=== PATIENT | female | born 1950 | race Caucasian/White ===

== ENCOUNTER → 2017-01-29 | Outpatient (CLI) | payer MEDICARE | LOC: M LAB 09:37 | PROVIDERS: ATTEND Physician Assistant Medical | DX: M79.675 Pain in left toe(s) (principal) ==

== ENCOUNTER 2017-07-18 10:35 | Inpatient (IN) | payer MEDICAID, MEDICARE ==
[2017-07-18] VITALS (7 sets, daily range): BP systolic 103–122; BP diastolic 64–78
[~2017-07-18] VITALS: Ht 170.2 cm; Wt 70.5 kg
[2017-07-18] MEDS: LOSARTAN 50 MG TAB PO SCH (09:00)
[2017-07-18] MEDS ORDERED: HYDR-3716 PO (10:44)
[2017-07-18] MEDS ORDERED: LOSA100T36 PO (10:44)
[2017-07-18] MEDS ORDERED: NAPR500T PO (10:44)
[2017-07-18] MEDS ORDERED: NS 1,000 ML IV SCH (11:09)
[2017-07-18] MEDS ORDERED: ONDANSETRON 4MG/2ML VIAL (J2405) IV ONE (11:15)
[2017-07-18 11:19] LABS: BASO % 0.4 % (0.0-1.0); EOS # 0.1 10^3/uL (0.0-0.50); EOS % 1.4 % (0.0-3.0); IMMATURE GRANULOCYTE % 0.8 % (0-0); LYMPH # 1.1 10^3/uL (1.5-4.5); LYMPH % 11.2 % (24.0-44.0); MEAN CORPUSCULAR HEMOGLOBIN 32.1 pg (27.0-33.0); MEAN CORPUSCULAR HGB CONC 33.7 g/dl (32.0-36.5); MEAN CORPUSCULAR VOLUME 95.1 fl (80.0-96.0); MONO # 0.8 10^3/uL (0.0-0.8); MONO % 8.2 % (0.0-5.0); NEUTROPHILS # 7.4 10^3/uL (1.8-7.7); PLATELET COUNT, AUTOMATED 343 10^3/uL (150-450); RED CELL DISTRIBUTION WIDTH 12.7 % (11.5-14.5); WHITE BLOOD COUNT 9.5 10^3/uL (4.0-10.0)
[2017-07-18] MEDS: MORPHINE 2 MG/ML 1ML SYRINGE IV PRN ×4 (11:23→13:47)
[2017-07-18 11:28] LABS: INR 0.96
[2017-07-18 11:35] LABS: ALBUMIN 3.9 GM/DL (3.2-5.2); ALKALINE PHOSPHATASE 80 U/L (45-117); ALT/SGPT 31 U/L (12-78); ANION GAP 8 MEQ/L (8-16); AST/SGOT 26 U/L (7-37); BILIRUBIN,DIRECT < 0.1 MG/DL (0.0-0.2); BILIRUBIN,TOTAL 0.4 MG/DL (0.2-1.0); BLOOD UREA NITROGEN 23 MG/DL (7-18); CARBON DIOXIDE LEVEL 26 MEQ/L (21-32); CHLORIDE LEVEL 106 MEQ/L (98-107); CREATININE FOR GFR 0.76 MG/DL (0.55-1.02); FREE T4 0.84 NG/DL (0.76-1.46); GLOMERULAR FILTRATION RATE > 60.0 (>45); GLUCOSE, FASTING 85 MG/DL (80-110); POTASSIUM SERUM 3.5 MEQ/L (3.5-5.1); SODIUM LEVEL 140 MEQ/L (136-145); TOTAL PROTEIN 7.8 GM/DL (6.4-8.2)
--- NOTE | 2017-07-18 12:19 | REP ---
AP pelvis single view: There is no pelvic fracture. There is a fracture of the left femoral neck. No dislocation. There is degenerative disc disease in the inferior lumbar spine. The sacroiliac articulations and right hip are. Signed by Brandyn Isaac MD 07/18/2017 12:10 P
--- NOTE | 2017-07-18 12:19 | REP ---
Left hip two views: There is a fracture of the femoral neck with cephalic displacement of the distal fracture fragment. There is no dislocation. Mineralization joint space are normal. Signed by Brandyn Isaac MD 07/18/2017 12:11 P
--- NOTE | 2017-07-18 12:20 | REP ---
Left femur two views: There is no fracture or dislocation. No calcifications or foreign bodies. Mineralization appears normal. Impression: No fracture or dislocation. Signed by Brandyn Isaac MD 07/18/2017 12:12 P
--- NOTE | 2017-07-18 12:23 | REP ---
Portable chest, AP view, the patient supine: Comparison is 05/30/2014. The lung salcedo are clear and unchanged. Cardiac size is normal. The sharon, mediastinum, and bony thorax are unremarkable. The small nodular densities identified previously are not visible on the current study, likely because of positioning and technique. Impression: Essentially negative AP supine chest. Signed by Brandyn Isaac MD 07/18/2017 12:14 P
--- NOTE | 2017-07-18 12:26 | REP ---
CT of the brain without IV contrast: There is no subdural or epidural hematoma. There is no hemorrhage, edema, mass effect or midline shift. The cortical stripe is unremarkable. The visualized paranasal sinuses and mastoid air cells are clear except for a small air-fluid level posteriorly in the right sphenoid sinus. Impression: Essentially negative CT study of the brain. A small air fluid levels posteriorly in the right sphenoid sinus compatible with sinusitis. Signed by Brandyn Isaac MD 07/18/2017 12:17 P
[2017-07-18] MEDS: NS 1,000 ML IV SCH (12:34)
[2017-07-18] MEDS ORDERED: ACETAMINOPHEN TAB 650MG DOSE (2X325MG) PO PRN (12:45)
[2017-07-18] MEDS ORDERED: PERCOCET 5MG/325MG TAB PO PRN ×2 (12:45→17:45)
[2017-07-18] MEDS ORDERED: BISACODYL 5 MG TAB PO PRN (12:45)
[2017-07-18] MEDS ORDERED: OXAZEPAM 10 MG CAP PO PRN (14:00)
[2017-07-18] MEDS ORDERED: VITMTA PO (14:04)
[2017-07-18] MEDS ORDERED: ESZO1TAB PO (14:04)
[2017-07-18] MEDS ORDERED: FOLI1TAB4 PO (14:04)
[2017-07-18] MEDS ORDERED: EXCE38TA PO (14:04)
[2017-07-18] MEDS ORDERED: ceFAZolin 2 GM/D5W 50 ML IV BAG (J0690 PER 500MG) As Ordered ONE (14:18)
[2017-07-18] MEDS ORDERED: EPINEPHrine INJ 1 MG/ML 1ML AMP As Ordered ONE (14:18)
[2017-07-18] MEDS ORDERED: MIDAZOLAM INJ 2 MG/2 ML VIAL (J2250) As Ordered ONE (14:19)
[2017-07-18] MEDS ORDERED: ceFAZolin 1GM INJ (J0690 PER 500MG) As Ordered ONE (14:19)
[2017-07-18] MEDS ORDERED: KETAMINE HCL 200 MG/20 ML VIAL As Ordered ONE (14:19)
[2017-07-18] MEDS ORDERED: fentaNYL 100 MCG/2 ML INJECTION (J3010) As Ordered ONE (14:19)
--- NOTE | 2017-07-18 15:41 | HPE ---
DATE OF ADMISSION: 07/18/2017 PRIMARY CARE PROVIDER: Valeri Brown INPATIENT HOSPITALIST ATTENDING: Dr. Emanuel Payne CHIEF COMPLAINT: Fall, left hip fracture. 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 The patient got out of bed this morning, was moving a box of [employer] when she slipped on the floor and she landed on her left side. The patient denies any head trauma , loss of consciousness, has been in her usual state of health, otherwise denies any fevers, chills, nausea, vomiting, abdominal pain, diarrhea, bright red blood per rectum, melena, cough, shortness of breath, palpitations, lightheadedness or dizziness, dysuria, urgency, frequency, upper or lower extremity weakness, changes in appetite or weight, chills, rhinorrhea. Hospitalist service was called for preoperative medical clearance and management of chronic issues, as well as left hip fracture for surgical intervention by orthopedic surgery. PAST MEDICAL HISTORY: Large cell lymphoma on the left. Hypertension. Alcohol abuse. PAST SURGICAL HISTORY: Endoscopy. Port placement. ALLERGIES: No known drug allergies. HOME MEDICATIONS: - losartan 100 mg daily - hydrocodone/acetaminophen 7.5-325 one tablet - Naprosyn 500 mg twice a day as needed for fever or pain REVIEW OF SYSTEMS: Per history of the present illness. FAMILY HISTORY: Father , age 52, deep vein thrombosis (DVT), diabetes. Mother in her 80s, alcohol abuse. PHYSICAL EXAMINATION: Temperature 97.4, pulse 90, respiratory rate 16, blood pressure 122/71, 99% on room air. General: Awake, alert, oriented times three, answering questions appropriately. No scleral icterus/jaundice. Pupils round and reactive to light and accommodation. Extraocular muscles are intact. Normocephalic, atraumatic. Moist mucous membranes. No jugular venous distention, thyromegaly or cervical lymphadenopathy. Lungs are clear to auscultation. No wheezing, rales, or rhonchi. Heart: S1, S2, sinus rhythm. Abdomen is soft, nontender, nondistended. Positive bowel sounds. No hepatosplenomegaly. No rebound, no guarding. Extremities: No cyanosis, clubbing or pitting edema. Left hip: Status post traumatic injury, limited range of motion. IMAGING STUDIES: Left hip, AP and lateral x-ray: Fracture of femoral neck with cephalic displacement distal fragment. CT of the head: Negative, sinusitis. Chest x-ray: Essentially negative AP chest. EKG: Chronic right bundle branch block, sinus rhythm. LABORATORY DATA: White count 9.5, hemoglobin 13, hematocrit 40, platelet count 343. Sodium 140, potassium 3.5, chloride 106, bicarbonate 26, BUN 23, creatinine 0.76, glucose 85, total bilirubin 0.4, direct bilirubin less than 0.1, AST 26, ALT 31, alkaline phosphatase 80, total CK 157, MB fraction 5.9, troponin less than 0.02. Total protein 7.8, albumin 3.9, TSH 1.12, free T4 0.84, INR 0.96. ASSESSMENT AND PLAN: A 66-year-old female, history of large cell lymphoma in remission, hypertension, alcohol abuse, presents after mechanical fall, sustaining a left hip fracture. The patient is admitted as inpatient for two midnights, assigned to Dr. Emanuel Payne, Hospitalist Service for the following issues: 1. Medical clearance. The patient has chronic right bundle branch block, has had no ischemic symptoms. Chest x-ray is normal. The patient may proceed to surgery and is currently medically optimized. 2. Left hip fracture. Orthopedic surgery for surgical intervention, nothing by mouth status, intravenous (IV) fluids, pain medications, bowel regimen, deep vein thrombosis (DVT) prophylaxis, postoperatively managed by orthopedic surgery. Physical therapy (PT), occupational therapy (OT) postoperatively. 3. The patient has had no prodromal symptoms prior to the episode. EKG has chronic changes. 4. Alcohol abuse. Clinical [place] Withdrawal Assessment (CIWA) protocol. Delirium tremens precautions. 5. History of large cell lymphoma in remission. 6. Deep vein thrombosis (DVT) prophylaxis. Compression stockings preop, postop to be managed by orthopedic surgery. The patient will be assigned to Dr. Emanuel Payne at 7:00 p.m. on 07/18/2017. [facility]
[2017-07-18] MEDS ORDERED: PROPOFOL 200 MG/20 ML VIAL As Ordered ONE ×2 (16:17→16:18)
--- NOTE | 2017-07-18 16:56 | REP ---
Left hip single AP view in the upright: There is a left hip hemiarthroplasty with the component in satisfactory position and alignment. Signed by Brandyn Isaac MD 07/18/2017 04:47 P
[2017-07-18] MEDS ORDERED: LR 1,000 ML IV SCH (17:45)
[2017-07-18] MEDS ORDERED: ONDANSETRON 4MG/2ML VIAL (J2405) IV PRN (17:45)
[2017-07-18] MEDS ORDERED: NAPROXEN 250 MG TAB PO PRN (17:45)
[2017-07-18] MEDS ORDERED: fentaNYL 100 MCG/2 ML INJECTION (J3010) IV PRN (17:45)
--- NOTE | 2017-07-18 19:36 | ECGEPIP ---
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
[2017-07-18] MEDS: PERCOCET 5MG/325MG TAB PO PRN (19:56)
[2017-07-18] MEDS: ONDANSETRON 4MG/2ML VIAL (J2405) IV PRN (20:35)
--- NOTE | 2017-07-18 21:58 | CR ---
DATE OF CONSULTATION: 07/18/2017 REASON FOR CONSULTATION: Hip fracture. CONSULTING PHYSICIAN: Dr. Gerhard Mckee. ADMITTING PHYSICIAN: Dr. Awan. CHIEF COMPLAINT: Left hip pain. HISTORY OF PRESENT ILLNESS: Munira Harper is a 66-year-old female who sustained a mechanical fall from standing height resulting in immediate left pain, inability to bear weight. She presented to the emergency department where she was found to have a left displaced femoral neck fracture. She presented to the emergency room (ER) for evaluation. The patient has a remote past medical history of primary lymphoma of bone for which she underwent chemotherapy. Her diagnosis was in 2000. She has been in remission for over 15 years. She recently had a nuclear medicine bone scan that showed no evidence of metastasis. She denied any antecedent hip pain prior to her fall. She denies any antecedent chest pain, calf pain, shortness of breath, dizziness, headache or nausea. PAST MEDICAL HISTORY: Lymphoma as per history of present illness (HPI), and hypertension. MEDICATIONS: None. ALLERGIES: No known drug allergies. PAST SURGICAL HISTORY: Left femur bone biopsy, bilateral tubal ligation and Infusaport placement. FAMILY HISTORY: Noncontributory. SOCIAL HISTORY: The patient lives with her partner. She drinks about five cocktails per day. She works in the [employer] shop at [employer]. She does not smoke and never has. Does not use illicit drugs. REVIEW OF SYSTEMS: 14-point review of systems was reviewed and is unremarkable. PHYSICAL EXAMINATION: VITAL SIGNS: Temperature 97.4, heart rate 70, blood pressure 118/70. GENERAL: Well-nourished female appears her stated age, in no acute distress. NEUROLOGIC: She is awake, alert, and oriented to person, place and time. She has intact sensory and motor function of her left lower extremity femoral, tibial, sural, saphenous, superficial, peroneal, and deep peroneal nerve distribution. CARDIOVASCULAR: She has 2+ dorsalis pedis and posterior tibial pulses and brisk capillary refill to all digits of her left lower extremity. MUSCULOSKELETAL: Focused physical exam of the left lower extremity demonstrates no open wounds or abrasions. She has a previous wound from a bone biopsy that is clean, dry and intact. Her left lower extremity is held in externally rotated flexed position. She is able to flex and extend all toes. She has 5/5 motor strength in ankle plantar flexion, dorsiflexion, inversion and eversion. RADIOGRAPHS: Plain radiographs of the left hip, pelvis, and femur demonstrate a displaced left femoral neck fracture. She has a recent bone scan that demonstrates no evidence of metastasis. ASSESSMENT: This is a 66-year-old with left displaced femoral neck fracture. PLAN: I discussed with the patient the risks, benefits, indications and alternatives of operative versus nonoperative management. The patient has elected to proceed and provided informed consent for a left hip cemented hemiarthroplasty. The patient was counseled on the risk of infection, bleeding, dislocation, periprosthetic fracture, and other complications. She will be admitted by the hospitalist service. She has been medically optimized and is cleared for surgery. I counseled her that I will be her operating surgeon, and her followup care will be conducted by [facility]. She expressed understanding and agreed with the plan. All questions were answered. MERCEDES
[2017-07-19] MEDS: PERCOCET 5MG/325MG TAB PO PRN (00:12)
[2017-07-19] MEDS: NS 1,000 ML IV SCH ×3 (00:13→20:36)
[2017-07-19 02:00] VITALS: BP 106/77
[2017-07-19] MEDS: ONDANSETRON 4MG/2ML VIAL (J2405) IV PRN (02:09)
--- NOTE | 2017-07-19 02:23 | REP ---
Clinical: Status post fixation left hip fracture. Comparison: 07/18/2017. Findings: Single portable AP view of the pelvis demonstrates the patient to be status post left hip replacement with overlying postsurgical changes. Impression: Satisfactory postoperative left hip replacement. Signed by Sudhir Diehl MD 07/18/2017 11:15 P
--- NOTE | 2017-07-19 02:24 | REP ---
Clinical: Status post arthroplasty. Technique: AP and cross-table lateral portable views left hip . Findings: The patient is status post left hip replacement with normal positioning and appearance to the femoral and acetabular components. Overlying postsurgical changes appreciated. Impression: Satisfactory left hip replacement radiographs. Signed by Sudhir Diehl MD 07/18/2017 11:16 P
[2017-07-19 06:00] VITALS: BP 109/75
[2017-07-19] MEDS ORDERED: traMADol 50 MG TAB PO PRN (06:45)
[2017-07-19] MEDS ORDERED: ACETAMINOPHEN 500 MG TAB PO PRN (06:45)
[2017-07-19] MEDS: ONDANSETRON 4 MG TAB (S0181) PO PRN ×2 (06:49→20:37)
[2017-07-19] MEDS: traMADol 50 MG TAB PO PRN ×3 (06:50→19:06)
[2017-07-19 06:59] LABS: BASO % 0.2 % (0.0-1.0); EOS # 0.1 10^3/uL (0.0-0.50); EOS % 0.8 % (0.0-3.0); IMMATURE GRANULOCYTE % 0.4 % (0-0); LYMPH # 0.6 10^3/uL (1.5-4.5); LYMPH % 7.4 % (24.0-44.0); MEAN CORPUSCULAR HEMOGLOBIN 32.4 pg (27.0-33.0); MEAN CORPUSCULAR HGB CONC 33.2 g/dl (32.0-36.5); MEAN CORPUSCULAR VOLUME 97.5 fl (80.0-96.0); MONO # 0.9 10^3/uL (0.0-0.8); MONO % 10.1 % (0.0-5.0); NEUTROPHILS # 6.8 10^3/uL (1.8-7.7); NEUTROPHILS % 81.1 % (36.0-66.0); PLATELET COUNT, AUTOMATED 275 10^3/uL (150-450); RED CELL DISTRIBUTION WIDTH 12.8 % (11.5-14.5); WHITE BLOOD COUNT 8.4 10^3/uL (4.0-10.0)
[2017-07-19 07:12] LABS: INR 1.08
[2017-07-19 07:30] LABS: ANION GAP 10 MEQ/L (8-16); BLOOD UREA NITROGEN 19 MG/DL (7-18); CALCIUM LEVEL 7.8 MG/DL (8.8-10.2); CARBON DIOXIDE LEVEL 24 MEQ/L (21-32); CHLORIDE LEVEL 106 MEQ/L (98-107); CREATININE FOR GFR 0.69 MG/DL (0.55-1.02); GLOMERULAR FILTRATION RATE > 60.0 (>45); GLUCOSE, FASTING 116 MG/DL (80-110); POTASSIUM SERUM 3.7 MEQ/L (3.5-5.1); SODIUM LEVEL 140 MEQ/L (136-145)
[2017-07-19] MEDS: SENOKOT S TAB PO SCH ×2 (08:46→20:36)
[2017-07-19] MEDS: MIRALAX *UNIT DOSE* 17GM PACKET PO SCH (08:46)
[2017-07-19] MEDS: MOM 30ML SUSPENSION UDC PO SCH (08:46)
[2017-07-19] MEDS: FOLIC ACID 1 MG TAB PO SCH (08:46)
[2017-07-19] MEDS: MULTIVITAMINS/MINERALS THERAP 1 TAB PO SCH (08:47)
[2017-07-19] MEDS: LOSARTAN 50 MG TAB PO SCH (08:48)
[2017-07-19 10:00] VITALS: BP 109/73
[2017-07-19 14:00] VITALS: BP 110/72
[2017-07-19 14:38] LABS: MEAN CORPUSCULAR HEMOGLOBIN 32.5 pg (27.0-33.0); MEAN CORPUSCULAR HGB CONC 33.4 g/dl (32.0-36.5); MEAN CORPUSCULAR VOLUME 97.3 fl (80.0-96.0); PLATELET COUNT, AUTOMATED 253 10^3/uL (150-450); RED CELL DISTRIBUTION WIDTH 12.9 % (11.5-14.5); WHITE BLOOD COUNT 7.9 10^3/uL (4.0-10.0)
[2017-07-19] MEDS ORDERED: WARFARIN SOD 5 MG TAB PO ONE ×2 (17:00)
--- NOTE | 2017-07-19 17:19 | IPNPDOC ---
Date Seen The patient was seen on 07/19/17. 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 In the ED she denied any head trauma,loss of consciousness. In the ED she was discovered to have a a left displaced femoral hip fracture and orthopedics was consulted. Patient agreed to and underwent a left hip cemented hemiarthroplasty on 07/18/17. This morning pt is doing well. She companied of increase pain overnight and was given Percocet. But she stated that made her nauseous and she had to be given anti nausea medication. Other richards is was doing okay with no major issues. OBJECTIVE PHYSICAL EXAMINATION: VITAL SIGNS: Please see below. General: Awake, alert, oriented times three, answering questions appropriately. Complaining of left hip pain.Normocephalic, atraumatic. Moist mucous membranes. Lungs are clear to auscultation. No wheezing, rales, or rhonchi. Heart: S1, S2, sinus rhythm. No murmurs rubs or gallops Abdomen: soft, nontender, nondistended. Positive bowel sounds in 4 quadrants. No hepatosplenomegaly. No rebound, no guarding. Extremities: Left lower hip is wrapped in bandage, no visible drainage, no signs of infection, no pruritus. No visible blood in bandage. Patient has plus peripheral pulses bilateral lateral lower extremities IMAGING STUDIES: Left hip, AP and lateral x-ray: Fracture of femoral neck with cephalic displacement distal fragment. LABORATORY DATA: Please see below. MICROBIOLOGY: Please see below. Assessment/Plan Left hip fracture. -Orthopedic surgery for surgical intervention, -intravenous (IV) fluids -pain medications - bowel regimen -postoperatively managed by orthopedic surgery -Physical therapy (PT) - occupational therapy (OT) postoperatively Postoperative blood loss -H&H is currently stable. We'll remeasure H&H at 10 PM today. Alcohol abuse. -Clinical [place] Withdrawal Assessment (CIWA) protocol. -Delirium tremens precautions. History of large cell lymphoma in remission. Deep vein thrombosis (DVT) prophylaxis. Compression stockings preop, postop to be managed by orthopedic surgery. VS, I&O, 24H, Fishbone Vital Signs/I&O Vital Signs Date Time Temp Pulse Resp B/P (MAP) Pulse Ox O2 Delivery O2 Flow Rate FiO2 07/19/17 14:00 97.8 99 16 110/72 (85) 94 Room Air 07/19/17 06:00 2.0 I&O- Last 24 Hours up to 6 AM 07/20/17 06:00 Intake Total 360 ml Output Total 200 ml Balance 160 ml Laboratory Data 24H LABS Laboratory Tests 2 07/19/17 06:44: Immature Granulocyte % (Auto) 0.4H, White Blood Count 8.4, Red Blood Count 3.24L , Hemoglobin 10.5#L, Hematocrit 31.6L, Mean Corpuscular Volume 97.5H, Mean Corpuscular Hemoglobin 32.4, Mean Corpuscular Hemoglobin Concent 33.2, Red Cell Distribution Width 12.8, Platelet Count 275, Neutrophils (%) (Auto) 81.1H, Lymphocytes (%) (Auto) 7.4L, Monocytes (%) (Auto) 10.1H, Eosinophils (%) (Auto) 0.8, Basophils (%) (Auto) 0.2, Neutrophils # (Auto) 6.8, Lymphocytes # (Auto) 0.6L, Monocytes # (Auto) 0.9H, Eosinophils # (Auto) 0.1, Basophils # (Auto) 0.0 , Immature Granulocyte # (Auto) 0.0, Nucleated Red Blood Cells % (auto) 0.0, Prothrombin Time 14.2, Prothromb Time International Ratio 1.08, Anion Gap 10, Glomerular Filtration Rate > 60.0, Blood Urea Nitrogen 19H, Creatinine 0.69, Sodium Level 140, Potassium Level 3.7, Chloride Level 106, Carbon Dioxide Level 24, Calcium Level 7.8L 07/19/17 14:25: Nucleated Red Blood Cells % (auto) 0.0 CBC/BMP Laboratory Tests 07/19/17 06:44 Red Blood Count 3.24 L, Mean Corpuscular Volume 97.5 H, Mean Corpuscular Hemoglobin 32.4, Mean Corpuscular Hemoglobin Concent 33.2, Red Cell Distribution Width 12.8, Neutrophils (%) (Auto) 81.1 H, Lymphocytes (%) (Auto) 7.4 L, Monocytes (%) (Auto) 10.1 H, Eosinophils (%) (Auto) 0.8, Basophils (%) ( Auto) 0.2, Neutrophils # (Auto) 6.8, Lymphocytes # (Auto) 0.6 L, Monocytes # ( Auto) 0.9 H, Eosinophils # (Auto) 0.1, Basophils # (Auto) 0.0, Calcium Level 7.8 L 07/19/17 14:25 Red Blood Count 2.95 L, Mean Corpuscular Volume 97.3 H, Mean Corpuscular Hemoglobin 32.5, Mean Corpuscular Hemoglobin Concent 33.4, Red Cell Distribution Width 12.9 GME ATTESTATION GME ATTESTATION My faculty preceptor for this patient encounter was physically present during the encounter and was fully available. All aspects of the patient interview, examination, medical decision making process, and medical care plan development were reviewed and approved by the faculty preceptor. The faculty preceptor is aware and concurs with the plan as stated in the body of this note and will attest to such by his/her cosignature. CALEB CAMILO DO Jul 19, 2017 15:51
--- NOTE | 2017-07-19 17:35 | RO ---
DATE OF PROCEDURE: 07/18/2017 PREPROCEDURE DIAGNOSIS: Left femoral neck fracture. POSTPROCEDURE DIAGNOSIS: Left femoral neck fracture. OPERATIVE PROCEDURE: Left hip hemiarthroplasty. SURGEON: Ehsan Eid MD IN SERVICE EDUCATOR: SORAYA Sutherland ANESTHESIA PROVIDER: Dr. Balderrama ANESTHESIA: Single shot spinal IMPLANTS USED: DePuy Lavaca low-demand size 2 cemented stem with a 48 mm -3 head ball, unipolar. MATERIAL SENT TO LAB: Left femoral head for permanent specimen. ESTIMATED BLOOD LOSS: 150 mL ANTIBIOTICS: 2 grams Ancef given within one hour of incision. COMPLICATIONS: None. INDICATION FOR PROCEDURE: Munira Harper is a 66-year-old female community ambulator with no assistive devices who sustained a mechanical fall from a standing height resulting in left displaced femoral neck fracture. The patient had a remote history of lymphoma of bone for which she underwent chemotherapy in 2000 and has been in remission since. She had a recent bone scan which demonstrated no evidence of metastatic lesion. She had plain radiographs that were consistent with a displaced femoral neck fracture. She was evaluated by the hospitalist and found to be medically optimized for surgery. I discussed with the patient the risks, benefits, indications and alternative of operative versus nonoperative management for her left femoral neck fracture and elected to proceed. She provided informed consent for left hip cemented hemiarthroplasty. I counseled the patient that I will be her operating surgeon, but her followup care will be conducted by [facility]. She expressed understanding with this arrangement and elected to proceed. INTRAOPERATIVE FINDINGS: There was a displaced left femoral neck fracture. DESCRIPTION OF PROCEDURE: The patient was positively identified in the preop holding area where the surgical site was marked. She was then brought to the operating room where she was given a single shot spinal anesthesia for pain control. She was positioned in the right lateral decubitus with all bony prominences appropriately padded. Axillary roll was placed. Sequential compression devices (SCDs) was on the nonoperative extremity for deep venous thrombosis (DVT) prophylaxis. She was then prepped and draped in the usual sterile fashion. A final time out was performed. I made a 10 cm posterolateral incision centered over the greater trochanter. I dissected through skin and subcutaneous tissue. Identified the IT band layer. IT band layer was dissected sharply in line with the skin incision where I identified the greater trochanteric bursa, which was excised. Identifying the gluteus medius tendon, I elevated the anterior one-third of the gluteus medius and tagged it for later repair. I then flexed the hip and performed a capsulotomy. The anterior aspect of the hip capsule was opened with an H shaped capsulotomy exposing the femoral neck and the fracture. I then performed a provisional neck cut to gain access to the femoral head which was then removed using a corkscrew and sized to a size 48. I resected some fat and the residual ligamentum teres from the acetabulum. At this point, a 48 mm trial was inserted into the acetabulum to confirm good suction seal. I then turned my attention to preparing the femur. I used a box cutting broach to identify the entry point to the femoral canal. A handheld canal finding reamer was then used, followed by sequential broaching to a size 2. After broaching the femur was then trialed and found to be stable with a size 2 and 48 mm -3 head ball. The hip was then dislocated. Femoral canal was thoroughly irrigated. Ray-Alexus sponges were placed in the acetabulum to prevent cement extravasation. A cement restricter was placed down the shaft of the femur. The femoral canal was thoroughly irrigated and dried. The epinephrine soaked sponges were placed into the femoral canal after the cement restricter was placed. After the femoral canal was thoroughly dried, cement was injected into the femoral canal and then pressurized followed by placement of the stem. After placement of the stem it appeared by feel, that some of the cement had potentially extravasated around the cement restricter, therefore I got an intraoperative portable AP x- ray to confirm adequate placement of the cement restricter and cement mantle. It was found to be in excellent position with a good cement mantle. After this was completed, I then placed the 48 mm - 3 head ball onto the stem after the cement had dried and the Ray-Tecs were removed from the acetabulum. The hip was reduced, brought through range of motion, found to be stable through all ranges of motion with no evidence of impingement and minimal shuck. After this was completed, the wound was then thoroughly irrigated with normal saline. The capsule layer was closed with interrupted #1 PDS suture. The gluteus medius was repaired using interrupted #1 PDS suture. The IT band layer was closed with interrupted #0 Vicryl suture, subcutaneous layer was closed with #2-0 Vicryl suture in a buried subcutaneous fashion and the skin was closed with esau. Sterile dressings were applied. This ended the procedure. I was present and scrubbed in for all critical portions of the case. POSTOPERATIVE PLAN: The patient will be weightbearing as tolerated to the left lower extremity. She will be on Coumadin for DVT prophylaxis. She will be admitted to the hospital under the care of the hospitalist and be discharged home when criteria met. MERCEDES
[2017-07-19 20:00] VITALS: BP 115/75
[2017-07-19 22:00] VITALS: BP 105/62
[2017-07-19 22:27] LABS: MEAN CORPUSCULAR HEMOGLOBIN 32.7 pg (27.0-33.0); MEAN CORPUSCULAR HGB CONC 33.2 g/dl (32.0-36.5); MEAN CORPUSCULAR VOLUME 98.6 fl (80.0-96.0); PLATELET COUNT, AUTOMATED 234 10^3/uL (150-450); RED CELL DISTRIBUTION WIDTH 12.9 % (11.5-14.5)
[2017-07-20] VITALS: BP 122/80
[2017-07-20] MEDS: traMADol 50 MG TAB PO PRN ×2 (03:49→11:46)
[2017-07-20 04:00] VITALS: BP 116/76
[2017-07-20] MEDS: NS 1,000 ML IV SCH (05:30)
[2017-07-20 06:00] VITALS: BP 110/67
[2017-07-20 07:07] LABS: INR 1.22
[2017-07-20 07:31] VITALS: BP 110/67
[2017-07-20] MEDS: LOSARTAN 50 MG TAB PO SCH (07:31)
[2017-07-20 07:47] LABS: BASO % 0.2 % (0.0-1.0); EOS # 0.1 10^3/uL (0.0-0.50); EOS % 1.1 % (0.0-3.0); IMMATURE GRANULOCYTE % 0.4 % (0-0); LYMPH # 0.7 10^3/uL (1.5-4.5); LYMPH % 8.5 % (24.0-44.0); MEAN CORPUSCULAR HGB CONC 33.5 g/dl (32.0-36.5); MEAN CORPUSCULAR VOLUME 98.5 fl (80.0-96.0); MONO # 1.1 10^3/uL (0.0-0.8); MONO % 12.8 % (0.0-5.0); NEUTROPHILS # 6.6 10^3/uL (1.8-7.7); PLATELET COUNT, AUTOMATED 258 10^3/uL (150-450); WHITE BLOOD COUNT 8.5 10^3/uL (4.0-10.0)
[2017-07-20 08:00] VITALS: BP 110/67
[2017-07-20 08:19] LABS: ALBUMIN 2.7 GM/DL (3.2-5.2); ALBUMIN/GLOBULIN RATIO 0.93 (1.00-1.93); ALKALINE PHOSPHATASE 86 U/L (45-117); ALT/SGPT 37 U/L (12-78); ANION GAP 9 MEQ/L (8-16); AST/SGOT 47 U/L (7-37); BILIRUBIN,TOTAL 0.4 MG/DL (0.2-1.0); BLOOD UREA NITROGEN 8 MG/DL (7-18); CALCIUM LEVEL 7.6 MG/DL (8.8-10.2); CARBON DIOXIDE LEVEL 25 MEQ/L (21-32); CHLORIDE LEVEL 105 MEQ/L (98-107); CREATININE FOR GFR 0.54 MG/DL (0.55-1.02); GLOMERULAR FILTRATION RATE > 60.0 (>45); GLUCOSE, FASTING 94 MG/DL (80-110); MAGNESIUM LEVEL 2.2 MG/DL (1.8-2.4); POTASSIUM SERUM 3.8 MEQ/L (3.5-5.1); SODIUM LEVEL 139 MEQ/L (136-145); TOTAL PROTEIN 5.6 GM/DL (6.4-8.2)
[2017-07-20] MEDS: MIRALAX *UNIT DOSE* 17GM PACKET PO SCH (09:19)
[2017-07-20] MEDS: SENOKOT S TAB PO SCH (09:20)
[2017-07-20] MEDS: MULTIVITAMINS/MINERALS THERAP 1 TAB PO SCH (09:20)
[2017-07-20] MEDS: MOM 30ML SUSPENSION UDC PO SCH (09:20)
[2017-07-20] MEDS: FOLIC ACID 1 MG TAB PO SCH (09:20)
[2017-07-20] MEDS ORDERED: TRAM50TA2 PO (15:33)
[2017-07-20] MEDS ORDERED: COUM7.5T PO (15:33)
[2017-07-20] MEDS ORDERED: SENN1TAB2 PO (15:33)
[2017-07-20] MEDS ORDERED: WARFARIN SOD 7.5 MG TAB PO ONE (17:00)
--- NOTE | 2017-07-20 21:43 | IPNPDOC ---
Date Seen The patient was seen on 07/20/17. Progress Note SUBJECTIVE: Munira Harper is a 66 year old female who was admitted for a fracture of her Left femoral neck. She had surgery to repair the fracture on . She admits to pain which is 10/10 while sitting up in her L hip and 5/10 while she is lying down. She stopped taking percocet because she said it made her stomach upset. Her pain is located only in her left hip and does not travel anywhere else. Her other concern is that she feels nauseas whenever she sits up. She denies feelings of lightheadedness, dizziness, or loss of consciousness. She had breakfast in her room but said that she would not be able to eat it due to nausea. She has been using her walker to get to the bathroom which she says is painful but she works through it. She has not had a bowel movement since her surgery but has been passing gas. OBJECTIVE PHYSICAL EXAMINATION: VITAL SIGNS: Please see below. General: cooperative, sitting at the edge of her bed, in no apparent distress Heart: RRR, no murmurs rubs or gallops, normal S1 and S2 Lungs: crackles heard in the base of lungs bilaterally Abdomen: bowel sounds heard, nontender to palpation, non distended, soft Extremities: lateral side of left thigh is bandaged, sensation is intact bilaterally in lower extremities, dorsalis pedis pulses 2+ bilaterally IMAGING STUDIES: Left hip, AP and lateral x-ray: Fracture of femoral neck with cephalic displacement distal fragment. LABORATORY DATA: Please see below. MICROBIOLOGY: Please see below. Assessment/Plan Left hip fracture. -Orthopedic surgery for surgical intervention -intravenous (IV) fluids -pain medications - bowel regimen -postoperatively managed by orthopedic surgery -Physical therapy (PT) - occupational therapy (OT) postoperatively Postoperative blood loss -hemoglobin is stable at 9 Alcohol abuse. -Clinical [place] Withdrawal Assessment (CIWA) protocol. -Delirium tremens precautions. History of large cell lymphoma in remission. Dispo: Pt will be D/C to PM&R later today. Deep vein thrombosis (DVT) prophylaxis. Compression stockings preop, postop to be managed by orthopedic surgery. VS, I&O, 24H, Fishbone Vital Signs/I&O Vital Signs Date Time Temp Pulse Resp B/P (MAP) Pulse Ox O2 Delivery O2 Flow Rate FiO2 07/20/17 07:31 110/67 07/20/17 06:00 97.9 105 15 94 Room Air 07/19/17 06:00 2.0 I&O- Last 24 Hours up to 6 AM 07/21/17 06:00 Intake Total 80 ml Balance 80 ml Laboratory Data 24H LABS Laboratory Tests 2 07/19/17 14:25: Nucleated Red Blood Cells % (auto) 0.0 07/19/17 22:22: Nucleated Red Blood Cells % (auto) 0.0 07/20/17 06:37: Nucleated Red Blood Cells % (auto) 0.0, Immature Granulocyte % (Auto) 0.4H, White Blood Count 8.5, Red Blood Count 2.73L, Hemoglobin 9.0L, Hematocrit 26.9L , Mean Corpuscular Volume 98.5H, Mean Corpuscular Hemoglobin 33.0, Mean Corpuscular Hemoglobin Concent 33.5, Red Cell Distribution Width 13.0, Platelet Count 258, Neutrophils (%) (Auto) 77.0H, Lymphocytes (%) (Auto) 8.5L, Monocytes (%) (Auto) 12.8H, Eosinophils (%) (Auto) 1.1, Basophils (%) (Auto) 0.2, Neutrophils # (Auto) 6.6, Lymphocytes # (Auto) 0.7L, Monocytes # (Auto) 1.1H, Eosinophils # (Auto) 0.1, Basophils # (Auto) 0.0, Immature Granulocyte # (Auto) 0.0, Anion Gap 9, Glomerular Filtration Rate > 60.0, Blood Urea Nitrogen 8#, Creatinine 0.54L, Sodium Level 139, Potassium Level 3.8, Chloride Level 105, Carbon Dioxide Level 25, Calcium Level 7.6L, Aspartate Amino Transf (AST/SGOT) 47H, Alanine Aminotransferase (ALT/SGPT) 37, Alkaline Phosphatase 86, Total Bilirubin 0.4, Total Protein 5.6#L, Albumin 2.7#L, Magnesium Level 2.2, Albumin/ Globulin Ratio 0.93L 07/20/17 06:41: Prothrombin Time 15.6H, Prothromb Time International Ratio 1.22 CBC/BMP Laboratory Tests 07/19/17 14:25 Red Blood Count 2.95 L, Mean Corpuscular Volume 97.3 H, Mean Corpuscular Hemoglobin 32.5, Mean Corpuscular Hemoglobin Concent 33.4, Red Cell Distribution Width 12.9 07/19/17 22:22 Red Blood Count 2.78 L, Mean Corpuscular Volume 98.6 H, Mean Corpuscular Hemoglobin 32.7, Mean Corpuscular Hemoglobin Concent 33.2, Red Cell Distribution Width 12.9 07/20/17 06:37 Red Blood Count 2.73 L, Mean Corpuscular Volume 98.5 H, Mean Corpuscular Hemoglobin 33.0, Mean Corpuscular Hemoglobin Concent 33.5, Red Cell Distribution Width 13.0, Neutrophils (%) (Auto) 77.0 H, Lymphocytes (%) (Auto) 8.5 L, Monocytes (%) (Auto) 12.8 H, Eosinophils (%) (Auto) 1.1, Basophils (%) ( Auto) 0.2, Neutrophils # (Auto) 6.6, Lymphocytes # (Auto) 0.7 L, Monocytes # ( Auto) 1.1 H, Eosinophils # (Auto) 0.1, Basophils # (Auto) 0.0, Calcium Level 7.6 L, Aspartate Amino Transf (AST/SGOT) 47 H, Alanine Aminotransferase (ALT/ SGPT) 37, Alkaline Phosphatase 86, Total Bilirubin 0.4, Total Protein 5.6 #L, Albumin 2.7 #L GME ATTESTATION GME ATTESTATION My faculty preceptor for this patient encounter was physically present during the encounter and was fully available. All aspects of the patient interview, examination, medical decision making process, and medical care plan development were reviewed and approved by the faculty preceptor. The faculty preceptor is aware and concurs with the plan as stated in the body of this note and will attest to such by his/her cosignature. CALEB CAMILO DO Jul 20, 2017 10:34
--- NOTE | 2017-07-20 21:45 | DS.PDOC ---
Discharge Summary General Date of Admission Jul 18, 2017 at 12:34 Date of Discharge 07/20/17 Attending Physician: ESVIN CORDERO MD Specialist/Consultants Involve: MACKENZIE BRAR MD Discharge Summary PROCEDURES PERFORMED DURING STAY: Left hip hemiarthroplasty. ADMITTING/DISCHARGE DIAGNOSES: 1. Left hip fracture 2. Hypertension 3. Alcohol abuse HISTORY OF PRESENT ILLNESS/ HOSPITAL COURSE: SUBJECTIVE: A 66-year-old female with a history of alcohol abuse, no prior history of alcohol withdrawal, hypertension, large cell lymphoma on the left, in remission for 20 years, presents to the emergency room after a mechanical fall at home, while trying to move Ariela presents. In the ED she denied any head trauma, and loss of consciousness. In the ED she was discovered to have a a left displaced femoral hip fracture and orthopedics was consulted. Patient agreed to and underwent a left hip cemented hemiarthroplasty on 07/18/[address] Ehsan Brar MD.Patient tolerated the procedure with any complications and minimal blood loss. He post operative pain was well manage. Patient ambulating by 07/20/17 with a walker to get to the bathroom with help. She did not have any signs of post operative fever or infections. She H and H where stable the surgery. On she was discharge to PM&R without any difficulties. DISCHARGE MEDICATIONS: Please see below. ALLERGIES: Please see below. PHYSICAL EXAMINATION ON DISCHARGE: VITAL SIGNS: Please see below. PHYSICAL EXAMINATION: VITAL SIGNS: Please see below. General: cooperative, sitting at the edge of her bed, in no apparent distress Heart: RRR, no murmurs rubs or gallops, normal S1 and S2 Lungs: crackles heard in the base of lungs bilaterally Abdomen: bowel sounds heard, nontender to palpation, non distended, soft Extremities: lateral side of left thigh is bandaged; sensation is intact bilaterally in lower extremities, dorsalis pedis pulses 2+ bilaterally, no purulent drainage from bandage. Healing surgical wound without any concern for infections LABORATORY DATA: Please see below. IMAGING: Pelvis X-Ray: 07/18/17: 17:52: Satisfactory postoperative left hip replacement Hip xray: 07/18/17: 11:09: There is a fracture of the femoral neck with cephalic displacement of the distal fracture fragment. There is no dislocation. Mineralization joint space are normal. PROGNOSIS: Stable ACTIVITY: Weight bearing as tolerated by left hip DIET: As tolerated DISCHARGE PLAN: To PM&R DISPOSITION: D/T Rehab Facility. DISCHARGE INSTRUCTIONS: 1. Left hip fracture 2. Hypertension 3. Alcohol abuse ITEMS TO FOLLOWUP ON OUTPATIENT: 1. Rehabilitation 2. Alcohol abuse 3. Surgical wound healing DISCHARGE CONDITION: Stable TIME SPENT ON DISCHARGE: Greater than 45 minutes. Vital Signs/I&Os Vital Signs Date Time Temp Pulse Resp B/P (MAP) Pulse Ox O2 Delivery O2 Flow Rate FiO2 07/20/17 12:16 14 07/20/17 08:00 105 110/67 07/20/17 08:00 Room Air 07/20/17 06:00 97.9 94 07/19/17 06:00 2.0 I&O- Last 24 Hours up to 6 AM 07/20/17 06:00 Intake Total 3000 ml Output Total 1000 ml Balance 2000 ml Laboratory Data Labs 24H Laboratory Tests 2 07/19/17 22:22: Nucleated Red Blood Cells % (auto) 0.0 07/20/17 06:37: Nucleated Red Blood Cells % (auto) 0.0, Immature Granulocyte % (Auto) 0.4H, White Blood Count 8.5, Red Blood Count 2.73L, Hemoglobin 9.0L, Hematocrit 26.9L , Mean Corpuscular Volume 98.5H, Mean Corpuscular Hemoglobin 33.0, Mean Corpuscular Hemoglobin Concent 33.5, Red Cell Distribution Width 13.0, Platelet Count 258, Neutrophils (%) (Auto) 77.0H, Lymphocytes (%) (Auto) 8.5L, Monocytes (%) (Auto) 12.8H, Eosinophils (%) (Auto) 1.1, Basophils (%) (Auto) 0.2, Neutrophils # (Auto) 6.6, Lymphocytes # (Auto) 0.7L, Monocytes # (Auto) 1.1H, Eosinophils # (Auto) 0.1, Basophils # (Auto) 0.0, Immature Granulocyte # (Auto) 0.0, Anion Gap 9, Glomerular Filtration Rate > 60.0, Blood Urea Nitrogen 8#, Creatinine 0.54L, Sodium Level 139, Potassium Level 3.8, Chloride Level 105, Carbon Dioxide Level 25, Calcium Level 7.6L, Aspartate Amino Transf (AST/SGOT) 47H, Alanine Aminotransferase (ALT/SGPT) 37, Alkaline Phosphatase 86, Total Bilirubin 0.4, Total Protein 5.6#L, Albumin 2.7#L, Magnesium Level 2.2, Albumin/ Globulin Ratio 0.93L 07/20/17 06:41: Prothrombin Time 15.6H, Prothromb Time International Ratio 1.22 CBC/BMP Laboratory Tests 07/19/17 22:22 Red Blood Count 2.78 L, Mean Corpuscular Volume 98.6 H, Mean Corpuscular Hemoglobin 32.7, Mean Corpuscular Hemoglobin Concent 33.2, Red Cell Distribution Width 12.9 07/20/17 06:37 Red Blood Count 2.73 L, Mean Corpuscular Volume 98.5 H, Mean Corpuscular Hemoglobin 33.0, Mean Corpuscular Hemoglobin Concent 33.5, Red Cell Distribution Width 13.0, Neutrophils (%) (Auto) 77.0 H, Lymphocytes (%) (Auto) 8.5 L, Monocytes (%) (Auto) 12.8 H, Eosinophils (%) (Auto) 1.1, Basophils (%) ( Auto) 0.2, Neutrophils # (Auto) 6.6, Lymphocytes # (Auto) 0.7 L, Monocytes # ( Auto) 1.1 H, Eosinophils # (Auto) 0.1, Basophils # (Auto) 0.0, Calcium Level 7.6 L, Aspartate Amino Transf (AST/SGOT) 47 H, Alanine Aminotransferase (ALT/ SGPT) 37, Alkaline Phosphatase 86, Total Bilirubin 0.4, Total Protein 5.6 #L, Albumin 2.7 #L Discharge Medications Scheduled (Excedrin Pm 500-38 mg) 1 Tab Tab, 2 TAB PO QHS, (Reported) (Senna Plus 8.6-50 mg) 1 Tab Tab, 1 TAB PO BID Folic Acid (Folic Acid) 1 Mg Tab, 1 MG PO DAILY, (Reported) Losartan Potassium (Losartan Potassium) 100 Mg Tab, 100 MG PO DAILY, (Reported) Multivitamins *[facility] STOCKED* (Thera M Plus *[facility] STOCKED*) 1 Tab Tab, 1 TAB PO DAILY, (Reported) Warfarin Sod (Coumadin) 7.5 Mg Tab, 7.5 MG PO ONCE@17 Scheduled PRN Acetaminophen/Hydrocodone (Hydrocodone/Acetaminophen 7.5-325 mg) 1 Tab Tab, 1 TAB PO Q6H PRN for PAIN, (Reported) Eszopiclone (Eszopiclone) 1 Mg Tab, 1 MG PO QHS PRN for SLEEP, (Reported) Naproxen (Naprosyn) 500 Mg Tab, 500 MG PO BID PRN for PAIN OR FEVER, (Reported) take with food Tramadol HCl (Tramadol HCl) 50 Mg Tab, 100 MG PO Q6HP PRN for SEVERE PAIN (PS 8- 10) Allergies Coded Allergies: No Known Drug Allergy (Unverified Allergy, Unknown, 11/01/12) GME ATTESTATION GME ATTESTATION My faculty preceptor for this patient encounter was physically present during the encounter and was fully available. All aspects of the patient interview, examination, medical decision making process, and medical care plan development were reviewed and approved by the faculty preceptor. The faculty preceptor is aware and concurs with the plan as stated in the body of this note and will attest to such by his/her cosignature. CALEB CAMILO DO Jul 20, 2017 21:19
== END 2017-07-20 16:30 | DRG 470 ==
LOC: EDBD 10:35 → M ED 10:35 → M ED INP 12:34 → M MS5PR 18:30
PROVIDERS: ADMIT General Practice; ATTEND Internal Medicine
PROC: 0SRS0J9 Replacement of Left Hip Joint, Femoral Surface with Synthetic Substitute, Cemented, Open Approach (ICD-10-PCS; principal; 2017-07-18 13:37)
DX: S72.002A Fracture of unspecified part of neck of left femur, initial encounter for closed fracture (principal); C85.90 Non-Hodgkin lymphoma, unspecified, unspecified site; I10 Essential (primary) hypertension; F10.10 Alcohol abuse, uncomplicated; Z79.899 Other long term (current) drug therapy; W18.30XA Fall on same level, unspecified, initial encounter; Y92.009 Unspecified place in unspecified non-institutional (private) residence as the place of occurrence of the external cause; I45.10 Unspecified right bundle-branch block

== ENCOUNTER 2017-07-20 15:55 | Inpatient (IN) | payer MEDICARE ==
[~2017-07-20] VITALS: Ht 170.2 cm; Wt 75.6 kg
[~2017-07-20 15:55] MED LIST: COUM7.5T PO; ESZO1TAB PO; EXCE38TA PO; FOLI1TAB4 PO; HYDR-3716 PO; LOSA100T36 PO; NAPR500T PO; SENN1TAB2 PO; TRAM50TA2 PO; VITMTA PO
[2017-07-20 16:20] VITALS: BP 110/64
[2017-07-20 17:00] VITALS: BP 110/64
[2017-07-20] MEDS ORDERED: BISACODYL 5 MG TAB PO PRN (17:00)
[2017-07-20] MEDS ORDERED: WARFARIN SOD 7.5 MG TAB PO ONE (17:00)
[2017-07-20] MEDS ORDERED: MOM 30ML SUSPENSION UDC PO PRN (17:00)
[2017-07-20] MEDS ORDERED: OXAZEPAM 10 MG CAP PO PRN (17:30)
[2017-07-20] MEDS: traMADol 50 MG TAB PO PRN (17:37)
[2017-07-20 20:00] VITALS: BP 107/67
[2017-07-20] MEDS: SENOKOT S TAB PO SCH (20:13)
[2017-07-20] MEDS: ACETAMINOPHEN TAB 650MG DOSE (2X325MG) PO PRN (20:16)
[2017-07-20 21:00] VITALS: BP 107/67
[2017-07-21] MEDS: ACETAMINOPHEN TAB 650MG DOSE (2X325MG) PO PRN (04:39)
[2017-07-21 06:00] VITALS: BP 136/77
[2017-07-21 07:15] LABS: BASO % 0.2 % (0.0-1.0); EOS # 0.1 10^3/uL (0.0-0.50); IMMATURE GRANULOCYTE % 0.6 % (0-0); LYMPH # 0.7 10^3/uL (1.5-4.5); LYMPH % 6.4 % (24.0-44.0); MEAN CORPUSCULAR HEMOGLOBIN 32.5 pg (27.0-33.0); MEAN CORPUSCULAR HGB CONC 33.9 g/dl (32.0-36.5); MEAN CORPUSCULAR VOLUME 95.8 fl (80.0-96.0); MONO # 1.1 10^3/uL (0.0-0.8); MONO % 10.3 % (0.0-5.0); NEUTROPHILS # 8.5 10^3/uL (1.8-7.7); NEUTROPHILS % 81.5 % (36.0-66.0); PLATELET COUNT, AUTOMATED 251 10^3/uL (150-450); RED CELL DISTRIBUTION WIDTH 12.8 % (11.5-14.5); WHITE BLOOD COUNT 10.5 10^3/uL (4.0-10.0)
[2017-07-21 07:26] LABS: INR 1.67
[2017-07-21 07:37] LABS: ALBUMIN 2.5 GM/DL (3.2-5.2); ALBUMIN/GLOBULIN RATIO 0.81 (1.00-1.93); ALKALINE PHOSPHATASE 111 U/L (45-117); ALT/SGPT 33 U/L (12-78); ANION GAP 10 MEQ/L (8-16); AST/SGOT 42 U/L (7-37); BILIRUBIN,TOTAL 0.3 MG/DL (0.2-1.0); BLOOD UREA NITROGEN 10 MG/DL (7-18); CALCIUM LEVEL 7.9 MG/DL (8.8-10.2); CARBON DIOXIDE LEVEL 26 MEQ/L (21-32); CHLORIDE LEVEL 102 MEQ/L (98-107); CREATININE FOR GFR 0.46 MG/DL (0.55-1.02); GLOMERULAR FILTRATION RATE > 60.0 (>45); GLUCOSE, FASTING 82 MG/DL (80-110); POTASSIUM SERUM 3.7 MEQ/L (3.5-5.1); SODIUM LEVEL 138 MEQ/L (136-145); TOTAL PROTEIN 5.6 GM/DL (6.4-8.2)
[2017-07-21] MEDS: MULTIVITAMINS/MINERALS THERAP 1 TAB PO SCH (08:22)
[2017-07-21] MEDS: FOLIC ACID 1 MG TAB PO SCH (08:22)
[2017-07-21] MEDS: LOSARTAN 50 MG TAB PO SCH (08:23)
[2017-07-21] MEDS: SENOKOT S TAB PO SCH ×2 (08:25→20:02)
[2017-07-21] MEDS: traMADol 50 MG TAB PO PRN ×2 (08:25→17:02)
[2017-07-21] MEDS: MIRALAX *UNIT DOSE* 17GM PACKET PO SCH (08:25)
[2017-07-21 09:52] VITALS: BP 136/77
--- NOTE | 2017-07-21 12:27 | IPNPDOC ---
Date Seen The patient was seen on 07/21/17. Progress Note HPI: 66year oldF S/P mechanical fall, admitted to [facility] 07/18-07/20 related to Left hip fracture S/P Left hip hemiarthroplasty 07/18 as per Orthopedic surgery. Pt is transferred to [facility] 07/20/17. ARU H/P not available at this time. No acute medical complaints today. Pt states pain is controlled. Denies any fevers, chills, weakness, fatigue, Headache, Chest Pain, Shortness of breath, cough, palpitations, abdominal pain, N/V/D or changes in bowel or bladder habits. PAST MEDICAL HISTORY: Large cell lymphoma on the left, remission x 20 years Hypertension. Alcohol use. PAST SURGICAL HISTORY: Endoscopy. Port placement. PE: GEN: 66yoF, appears stated age. Well-nourished, well developed. No acute distress. Alert and oriented x 3. Pleasant, interactive. HEENT: Normocephalic, atraumatic. Pupils are equal, round, and reactive to light. Extraocular movements are intact. No nystagmus appreciated. Sclera are nonicteric. Conjunctiva without injection. Nose midline. Pharynx pink and moist. Neck supple, trachea midline. CHEST: Regular rate and rhythm, +S1, +S2 LUNGS: Clear to auscultation bilaterally. No wheezes, rales, or rhonchi. Breathing appears symmetric and easy. ABD: Round, soft, non-tender, non-distended. +Bowel sounds throughout. No rebound or guarding. EXT: No lower extremity edema appreciated. SKIN: [place], dry, warm.No rashes. NEURO: No focal deficits appreciated. A&P: 66year oldF S/P mechanical fall, admitted to [facility] 07/18-07/20 related to Left hip fracture S/P Left hip hemiarthroplasty 07/18 as per Orthopedic surgery. Pt is transferred to [facility] 07/20/17. 1. Mechanical Fall/Left hip fracture/Left hip hemiarthroplasty. Mgmt as per Orthopedic surgery. DVT prophylaxis as per orthopedics.Coumadin. PT/OT as per Orthopedics. Pain control as per [facility]/Dr Fish. Bowel care as per [facility]/Dr Fish. 2. HTN. Cozaar. 3. Alcohol use. Serax as needed. Continue MVI/Folic acid/thiamine. 4. Acute blood loss anemia. Baseline 13. Add fe studies/B12/folate Stool OB Monitor. 5. Mild leukocytosis. Pt afebrile, asymptomatic. Recheck CBC in AM. Encouraged I/S Q1hr WA. VS, I&O, 24H, Fishbone Vital Signs/I&O Vital Signs Date Time Temp Pulse Resp B/P (MAP) Pulse Ox O2 Delivery O2 Flow Rate FiO2 07/21/17 09:52 114 136/77 07/21/17 09:09 18 07/21/17 06:00 98.2 95 Room Air I&O- Last 24 Hours up to 6 AM 07/21/17 06:00 Intake Total 360 ml Output Total 200 ml Balance 160 ml Laboratory Data 24H LABS Laboratory Tests 2 07/21/17 00:59: Urine Appearance CLEAR, Urine Color YELLOW, Urine pH 6.0, Urine Specific [place] 1.008, Urine Protein NEGATIVE, Urine Glucose (UA) NEGATIVE, Urine Ketones 1+H, Urine Urobilinogen 0.2, Urine Bilirubin NEGATIVE, Urine Leukocyte Esterase NEGATIVE, Urine Blood 1+H, Urine Nitrite NEGATIVE, Urine WBC (Auto) 3, Urine RBC (Auto) 5H, Urine Hyaline Casts (Auto) 0, Urine Bacteria (Auto) 1+H, Urine Squamous Epithelial Cells 1, Urine Mucus (Auto) SMALL, Urine Sperm (Auto) 07/21/17 07:00: Immature Granulocyte % (Auto) 0.6H, White Blood Count 10.5H, Red Blood Count 2.65L, Hemoglobin 8.6L, Hematocrit 25.4L, Mean Corpuscular Volume 95.8, Mean Corpuscular Hemoglobin 32.5, Mean Corpuscular Hemoglobin Concent 33.9, Red Cell Distribution Width 12.8, Platelet Count 251, Neutrophils (%) (Auto) 81.5H, Lymphocytes (%) (Auto) 6.4L, Monocytes (%) (Auto) 10.3H, Eosinophils (%) (Auto) 1.0, Basophils (%) (Auto) 0.2, Neutrophils # (Auto) 8.5H, Lymphocytes # (Auto) 0.7L, Monocytes # (Auto) 1.1H, Eosinophils # (Auto) 0.1, Basophils # (Auto) 0.0 , Immature Granulocyte # (Auto) 0.1H, Nucleated Red Blood Cells % (auto) 0.0, Prothrombin Time 20.2H, Prothromb Time International Ratio 1.67, Anion Gap 10, Glomerular Filtration Rate > 60.0, Blood Urea Nitrogen 10, Creatinine 0.46L, Sodium Level 138, Potassium Level 3.7, Chloride Level 102, Carbon Dioxide Level 26, Calcium Level 7.9L, Aspartate Amino Transf (AST/SGOT) 42H, Alanine Aminotransferase (ALT/SGPT) 33, Alkaline Phosphatase 111, Total Bilirubin 0.3, Total Protein 5.6L, Albumin 2.5L, Albumin/Globulin Ratio 0.81L CBC/BMP Laboratory Tests 07/21/17 07:00 Red Blood Count 2.65 L, Mean Corpuscular Volume 95.8, Mean Corpuscular Hemoglobin 32.5, Mean Corpuscular Hemoglobin Concent 33.9, Red Cell Distribution Width 12.8, Neutrophils (%) (Auto) 81.5 H, Lymphocytes (%) (Auto) 6.4 L, Monocytes (%) (Auto) 10.3 H, Eosinophils (%) (Auto) 1.0, Basophils (%) ( Auto) 0.2, Neutrophils # (Auto) 8.5 H, Lymphocytes # (Auto) 0.7 L, Monocytes # ( Auto) 1.1 H, Eosinophils # (Auto) 0.1, Basophils # (Auto) 0.0, Calcium Level 7.9 L, Aspartate Amino Transf (AST/SGOT) 42 H, Alanine Aminotransferase (ALT/ SGPT) 33, Alkaline Phosphatase 111, Total Bilirubin 0.3, Total Protein 5.6 L, Albumin 2.5 L Margie Murphy Jul 21, 2017 12:27
[2017-07-21] MEDS: THIAMINE 100 MG TAB PO SCH (13:32)
[2017-07-21 14:05] VITALS: BP 111/70
--- NOTE | 2017-07-21 16:45 | PMRHPE ---
DATE OF ADMISSION: 07/20/2017 REASON FOR ADMISSION: Rehabilitation of left femoral neck fracture with hemiarthroplasty reduction. HISTORY OF PRESENT ILLNESS: Patient is a right-handed, 66-year-old, white female who, while inebriated on 07/18/2017, fell, striking her left side, and had onset of immediate pain. She was brought to [facility] and evaluated and found to have sustained a left femoral fracture. Orthopedics evaluated her and felt that she was appropriate for a hemiarthroplasty and, on 07/18/2017, patient had this performed, stabilizing her hip. Patient has also been placed on alcohol withdrawal as well as been going through management of her hypertension. She does have a past medical history of large cell lymphoma, in remission times 20 years, and has had endoscopy and port placement surgeries in the past. ALLERGIES: No known drug allergies. She lives at home with her significant other and was independent in activities of daily living and mobility and working in the [employer] prior to this event. Patient reports having four cocktails daily. MEDICATIONS ON ADMISSION: - Tylenol - Dulcolax tablets - Senokot-S - folic acid - Cozaar - milk of magnesia as needed - multivitamin - naproxen 500 mg twice a day as needed for pain - Serax 10 mg by mouth every 6 hours as needed for ethanol withdrawal symptoms - MiraLAX one packet daily - tramadol 50-100 mg every 6 hours as needed for moderate to severe pain - Coumadin for anticoagulation REVIEW OF SYSTEMS: Negative except for hip and groin pain and some aching in the neck and shoulders. DIAGNOSTIC DATA: Shows x-rays showing good alignment of the hip fracture with the left hip hemiarthroplasty well seated in the acetabulum. ASSESSMENT/PLAN: 1. Rehabilitation of left hip fracture status post hemiarthroplasty placement. Patient is weightbearing as tolerated and will proceed in physical and occupational therapy to work on regaining a level of modified independence in activities of daily living and mobility. I am anticipating her length of stay to be 7 days. 2. History of ethanol abuse and ethanol. Patient will be watched for any signs and symptoms. She is not having any signs of withdrawal. Serax is available in case we see any withdrawal symptoms during approximately the next 2 days as patient is now over 48 hours post-ethanol. 3. Atherosclerotic cardiovascular disease including hypertension and chronic right bundle branch block. No immediate problems at this time. Will continue the losartan. 4. Deep venous thrombosis (DVT) prophylaxis. Will continue with Coumadin, sequential compression stockings, and thromboembolism deterrent (AVERY) hose. 5. History of large cell lymphoma in remission. Pathology has been sent for assessment and no malignancy was identified on the evaluation today. POSTADMISSION PHYSICIAN EVALUATION: The patient is consistent with preadmission screening and evaluation. I do feel she is quite capable of participating in and benefiting from acute musculoskeletal rehabilitation and she is highly motivated to do the 3 hours of therapy per day. I do anticipate her returning to home with her significant other and having a good prognosis for that. Estimated length of stay is 7 days. Time spent on chart review, history and physical (H and P), and documentation is greater than 70 minutes.
--- NOTE | 2017-07-21 16:54 | IPNPDOC ---
PM&R Progress Note Pattern Developer Progress Note DATE OF SERVICE: 07/21/17 DATE OF ADMISSION: Jul 20, 2017 at 16:20 INPATIENT REHABILITATION ADMISSION DAY: #2 SUBJECTIVE: Patient is a 66-year-old handed white female with left femoral neck fracture status post augustus-arthroplasty from fall on 07/18/17 with evaluation at [facility] emergency room and then orthopedic consultation and surgery the same day. Of concern is patient's history of 4 cocktails daily so she has been on ethanol withdrawal precautions. 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 Patient has done well initially in physical and occupational therapy and is felt to be appropriate for acute intensive rehabilitation. This morning the patient noted headache and some photosensitivity while having tachycardia and exhibiting some anxious behaviors. This cleared rapidly with Serax. Otherwise patient is having some left hip pain and is compensating well and working with nursing, occupational therapy and physical therapy. ALLERGIES: See Below MEDICATIONS: Reviewed, see below. OBJECTIVE: VITAL SIGNS: Please see below. PHYSICAL EXAMINATION: GENERAL: Short well-nourished well-developed late middle-aged white female who looks approximately stated age. Initially anxious with tachycardia but on reexamination much more relaxed and comfortable with normal heart rate. Patient is alert and well oriented. HEENT: Normocephalic/atraumatic. CARDIOVASCULAR: Rapid but in normal range heart rate with normal S1-S2. 2/4 bilateral radial pulses. LUNGS: All [place] clear to auscultation. ABDOMEN: Benign with normal bowel sounds. Patient reporting bowel movement. NEUROLOGICAL: Patient alert and oriented 4. Affect now pleasant and cooperative without the anxiousness. Memory grossly intact. Bilateral upper extremities with good sensory motor function. Good sensory motor function of the right lower extremity and only some limited guarding of the left hip on movement. SKIN: Healing left posterior lateral hip incision. LABORATORY DATA: Reviewed. Please see below. MICROBIOLOGY: Please see below. IMAGING: No new imaging. DVT prophylaxis ordered?: Coumadin, AVERY hose and sequential compression stockings. INR today is 1.67 and Coumadin 2.5 mg is been ordered for tonight by orthopedics. ASSESSMENT AND PLAN: 1. Rehabilitation of left hip fracture status post left hip hemiarthroplasty placement: Patient is done well participating in physical and occupational therapy as well as working with nursing staff today. She is highly motivated and I anticipate approximate seven-day length of stay. Pain control is fairly good at this time. Patient will be reviewed at rehabilitation team rounds tomorrow. Please see attached initial evaluations in the addendum. 2. Ethanol withdrawal: Patient's headache, tachycardia, photophobia and nausea and emesis are highly consistent with ethanol withdrawal. She responded well to the Serax. We will continue to watch over the next 48 hours for a further signs or symptoms. 3. Anemia: Patient with moderate to severe anemia with an H&H of 8.6 and 25.4% today on 07/21/17 which represents of pattern of sliding down during the last 3 days. CBC will be rechecked tomorrow. At present patient heart rate and blood pressure have been stable after the initial tachycardia this morning. 4. Nutrition: Patient albumin has decreased now to 2.5. We will continue observe this encourage nutrition. A further note liver function tests are normal except for mild elevation in AST @ 42, which is slightly better than on the acute floor area. We will continue to observe this and supplement as appropriate. TIME SPENT: Chart Review, examination and documentation require greater than 25 minutes. Allergies Coded Allergies: No Known Drug Allergy (Unverified Allergy, Unknown, 11/01/12) Vital Signs Vital Signs Date Time Temp Pulse Resp B/P (MAP) Pulse Ox O2 Delivery O2 Flow Rate FiO2 07/21/17 14:05 97.3 98 18 111/70 (84) 96 Room Air Laboratory Data CBC/BMP Laboratory Tests 07/21/17 07:00 Red Blood Count 2.65 L, Mean Corpuscular Volume 95.8, Mean Corpuscular Hemoglobin 32.5, Mean Corpuscular Hemoglobin Concent 33.9, Red Cell Distribution Width 12.8, Neutrophils (%) (Auto) 81.5 H, Lymphocytes (%) (Auto) 6.4 L, Monocytes (%) (Auto) 10.3 H, Eosinophils (%) (Auto) 1.0, Basophils (%) ( Auto) 0.2, Neutrophils # (Auto) 8.5 H, Lymphocytes # (Auto) 0.7 L, Monocytes # ( Auto) 1.1 H, Eosinophils # (Auto) 0.1, Basophils # (Auto) 0.0, Calcium Level 7.9 L, Aspartate Amino Transf (AST/SGOT) 42 H, Alanine Aminotransferase (ALT/ SGPT) 33, Alkaline Phosphatase 111, Total Bilirubin 0.3, Total Protein 5.6 L, Albumin 2.5 L Labs 24H Laboratory Tests 2 07/21/17 00:59: Urine Appearance CLEAR, Urine Color YELLOW, Urine pH 6.0, Urine Specific [place] 1.008, Urine Protein NEGATIVE, Urine Glucose (UA) NEGATIVE, Urine Ketones 1+H, Urine Urobilinogen 0.2, Urine Bilirubin NEGATIVE, Urine Leukocyte Esterase NEGATIVE, Urine Blood 1+H, Urine Nitrite NEGATIVE, Urine WBC (Auto) 3, Urine RBC (Auto) 5H, Urine Hyaline Casts (Auto) 0, Urine Bacteria (Auto) 1+H, Urine Squamous Epithelial Cells 1, Urine Mucus (Auto) SMALL, Urine Sperm (Auto) 07/21/17 07:00: Immature Granulocyte % (Auto) 0.6H, White Blood Count 10.5H, Red Blood Count 2.65L, Hemoglobin 8.6L, Hematocrit 25.4L, Mean Corpuscular Volume 95.8, Mean Corpuscular Hemoglobin 32.5, Mean Corpuscular Hemoglobin Concent 33.9, Red Cell Distribution Width 12.8, Platelet Count 251, Neutrophils (%) (Auto) 81.5H, Lymphocytes (%) (Auto) 6.4L, Monocytes (%) (Auto) 10.3H, Eosinophils (%) (Auto) 1.0, Basophils (%) (Auto) 0.2, Neutrophils # (Auto) 8.5H, Lymphocytes # (Auto) 0.7L, Monocytes # (Auto) 1.1H, Eosinophils # (Auto) 0.1, Basophils # (Auto) 0.0 , Immature Granulocyte # (Auto) 0.1H, Nucleated Red Blood Cells % (auto) 0.0, Prothrombin Time 20.2H, Prothromb Time International Ratio 1.67, Anion Gap 10, Glomerular Filtration Rate > 60.0, Blood Urea Nitrogen 10, Creatinine 0.46L, Sodium Level 138, Potassium Level 3.7, Chloride Level 102, Carbon Dioxide Level 26, Calcium Level 7.9L, Aspartate Amino Transf (AST/SGOT) 42H, Alanine Aminotransferase (ALT/SGPT) 33, Alkaline Phosphatase 111, Total Bilirubin 0.3, Total Protein 5.6L, Albumin 2.5L, Albumin/Globulin Ratio 0.81L Current Medications Current Medications Current Medications Acetaminophen (Tylenol Tab) 650 mg Q6HP PRN PO PAIN OR FEVER Last administered on 07/21/17 04:39; Start 07/20/17 at 17:00; Stop 08/19/17 at 16:59 Bisacodyl (Dulcolax Tab) 5 mg DAILYPRN PRN PO CONSTIPATION; Start 07/20/17 at 17:00; Stop 08/19/17 at 16:59 Folic Acid (Folic Acid) 1 mg DAILY PO Last administered on 07/21/17 08:22; Start 07/21/17 at 09:00; Stop 08/20/17 at 08:59 Losartan Potassium (Cozaar) 100 mg DAILY PO Last administered on 07/21/17 08: 23; Start 07/21/17 at 09:00; Stop 08/20/17 at 08:59 Magnesium Hydroxide (Milk Of Magnesia) 30 ml DAILYPRN PRN PO CONSTIPATION; Start 07/20/17 at 17:00; Stop 08/19/17 at 16:59 Multivitamins (Theragram-M) 1 tab DAILY PO Last administered on 07/21/17 08: 22; Start 07/21/17 at 09:00; Stop 08/20/17 at 08:59 Naproxen (Naprosyn) 500 mg BIDP PRN PO PAIN; Start 07/20/17 at 17:30; Stop at 17:29 Oxazepam (Serax) 10 mg Q6HP PRN PO WITHDRAWAL SYMPTOMS Last administered on 10:12; Start 07/20/17 at 17:30; Stop 07/23/17 at 12:00 Polyethylene Glycol (Miralax) 1 pkt DAILY PO ; Start 07/21/17 at 09:00; Stop at 08:59 Senna/Docusate Sodium (Senokot S) 1 tab BID PO ; Start 07/20/17 at 21:00; Stop 08/19/17 at 20:59 Thiamine HCl (Thiamine HCl) 100 mg DAILY PO Last administered on 07/21/17 13: 32; Start 07/21/17 at 09:00; Stop 08/20/17 at 08:59 Tramadol HCl (Ultram) 50 mg Q6HP PRN PO MODERATE PAIN (PS 5-7); Start at 17:30; Stop 07/27/17 at 17:29 Tramadol HCl (Ultram) 100 mg Q6HP PRN PO SEVERE PAIN (PS 8-10) Last administered on 07/21/17t 08:25; Start 07/20/17 at 17:30; Stop 07/27/17 at 17 :29 RUPERT CALLEJAS MD Jul 21, 2017 16:54
[2017-07-21] MEDS ORDERED: WARFARIN SOD 2.5 MG TAB PO ONE (17:00)
[2017-07-21 20:00] VITALS: BP 115/62
[2017-07-21 21:00] VITALS: BP 115/62
[2017-07-22] MEDS: traMADol 50 MG TAB PO PRN ×2 (01:35→07:45)
[2017-07-22 06:00] VITALS: BP 113/59
[2017-07-22 07:35] LABS: MEAN CORPUSCULAR HEMOGLOBIN 32.7 pg (27.0-33.0); MEAN CORPUSCULAR HGB CONC 33.5 g/dl (32.0-36.5); MEAN CORPUSCULAR VOLUME 97.8 fl (80.0-96.0); PLATELET COUNT, AUTOMATED 331 10^3/uL (150-450); RED CELL DISTRIBUTION WIDTH 12.9 % (11.5-14.5); WHITE BLOOD COUNT 11.3 10^3/uL (4.0-10.0)
[2017-07-22 07:48] LABS: INR 1.99
[2017-07-22 08:10] LABS: PERCENT SATURATION 4.7 % (13.2-45.0)
[2017-07-22] MEDS: MULTIVITAMINS/MINERALS THERAP 1 TAB PO SCH (08:49)
[2017-07-22] MEDS: LOSARTAN 50 MG TAB PO SCH (08:49)
[2017-07-22] MEDS: SENOKOT S TAB PO SCH ×2 (08:49→20:06)
[2017-07-22] MEDS: FOLIC ACID 1 MG TAB PO SCH (08:49)
[2017-07-22] MEDS: THIAMINE 100 MG TAB PO SCH (08:49)
[2017-07-22] MEDS: MIRALAX *UNIT DOSE* 17GM PACKET PO SCH (08:51)
[2017-07-22] MEDS: ACETAMINOPHEN TAB 650MG DOSE (2X325MG) PO PRN ×2 (13:23→20:06)
[2017-07-22 14:10] VITALS: BP 102/55
[2017-07-22 14:32] LABS: FOLATE 15.8 NG/ML (>5.4)
[2017-07-22] MEDS: ANALGESIC BALM CRM 120 GM TOP SCH ×2 (16:51→20:07)
[2017-07-22] MEDS ORDERED: WARFARIN 1.25 MG PER 1/2 TABLET PO ONE (17:00)
--- NOTE | 2017-07-22 18:32 | IPNPDOC ---
PM&R Progress Note Lookback Coordinator Progress Note DATE OF SERVICE: 07/22/17 DATE OF ADMISSION: Jul 20, 2017 at 16:20 INPATIENT REHABILITATION ADMISSION DAY: #3 SUBJECTIVE: Patient is a 66-year-old handed white female with left femoral neck fracture status post augustus-arthroplasty from fall on 07/18/17 with evaluation at [facility] emergency room and then orthopedic consultation and surgery the same day. Of concern is patient's history of 4 cocktails daily so she has been on ethanol withdrawal precautions. 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 Patient has done well initially in physical and occupational therapy and is felt to be appropriate for acute intensive rehabilitation. This morning the patient noted headache and some photosensitivity while having tachycardia and exhibiting some anxious behaviors. This cleared rapidly with Serax. Otherwise patient is having some left hip pain and is compensating well and working with nursing, occupational therapy and physical therapy. ALLERGIES: See Below MEDICATIONS: Reviewed, see below. OBJECTIVE: VITAL SIGNS: Please see below. PHYSICAL EXAMINATION: GENERAL: Short well-nourished well-developed late middle-aged white female who looks approximately stated age. Initially anxious with tachycardia but on reexamination much more relaxed and comfortable with normal heart rate. Patient is alert and well oriented. HEENT: Normocephalic/atraumatic. CARDIOVASCULAR: Rapid but in normal range heart rate with normal S1-S2. 2/4 bilateral radial pulses. LUNGS: All salcedo clear to auscultation. ABDOMEN: Benign with normal bowel sounds. Patient reporting bowel movement. NEUROLOGICAL: Patient alert and oriented 4. Affect now pleasant and cooperative without the anxiousness. Memory grossly intact. Bilateral upper extremities with good sensory motor function. Good sensory motor function of the right lower extremity and only some limited guarding of the left hip on movement. SKIN: Healing left posterior lateral hip incision. LABORATORY DATA: Reviewed. Please see below. MICROBIOLOGY: Please see below. IMAGING: No new imaging. DVT prophylaxis ordered?: Coumadin, AVERY hose and sequential compression stockings. INR today is 1.67 and Coumadin 2.5 mg is been ordered for tonight by orthopedics. ASSESSMENT AND PLAN: 1. Rehabilitation of left hip fracture status post left hip hemiarthroplasty placement: Patient is done well participating in physical and occupational therapy as well as working with nursing staff today. She is highly motivated and I anticipate approximate seven-day length of stay. Pain control is fairly good at this time. REHAB. TEAM ROUNDS: Patient with the presence of mild withdrawal symptoms yesterday's feeling better today and making progress in physical and occupational therapies. Her anemia is improved today and anticoagulation appears to be under good control. Based on patient's progress today we anticipate discharge date of 07/27/17. Please see attached therapy notes below. 2. Ethanol withdrawal: Patient's headache, tachycardia, photophobia and nausea and emesis are highly consistent with ethanol withdrawal. She responded well to the Serax. We will continue to watch over the next 48 hours for a further signs or symptoms. 3. Anemia: Patient with moderate to severe anemia with an H&H of 8.6 and 25.4% today on 07/21/17 which represents of pattern of sliding down during the last 3 days. CBC will be rechecked tomorrow. At present patient heart rate and blood pressure have been stable after the initial tachycardia this morning. 4. Nutrition: Patient albumin has decreased now to 2.5. We will continue observe this encourage nutrition. A further note liver function tests are normal except for mild elevation in AST @ 42, which is slightly better than on the acute floor area. We will continue to observe this and supplement as appropriate. TIME SPENT: Chart Review, examination and documentation require greater than 25 minutes. Patient: Munira Harper : 1950 Age/Sex: 66/F Unit#: [id number] Room/Bed: M4152/01 User: LIZ Cardoso Date: 07/22/17 10:48 Type: OT Progress Time In * 06:50 Time Out * 08:10 OT Treatment Time-Minutes * 80 mins Type of Therapy Provided * Individual Precautions * Fall * Hip * WBAT Other Precautions * (lt) LE Unit * Acute Inpatient Rehab Pain Start of Session * 4 Pain: During Session * 8 Pain End of Session * 6 Pain Comment * pt reports up to 8/10 pain in (lt) LE, pt medicated during session. pain at 6/10 at rest/end of session. Subjective * pt agreeable to ot session. pt reports dizziness upon initial sitting and standing; BP WNL 116/68. Cognition * Within Normal Limits Supine to Sit * Standby Assist Sit to Supine * Minimum Assist Bed Mobility Notes * pt t/f supine to sit without use of leg senior information systems architect with increased time and cues. pt requires min assist for (lt) LE to return to supine; pt trialed leg senior information systems architect without success d/t pain. Sit to Stand * Contact Guard Assist Stand to Sit * Contact Guard Assist Toilet/Commode * Contact Guard Assist Functional Transfer Notes: * pt engages in sit to/from stand and commode t/f (d/t urgency) with CGA using 2ww. Bathing * Contact Guard Assist Dressing-Upper Body * Standby Assist Dressing-Lower Body * Contact Guard Assist Grooming * Standby Assist Toileting * Contact Guard Assist ADL Training Note * pt engages in sponge bathing and LB dressing using AE with CGA only for standing aspects at walker. grooming and UB dressing with only setup assist. assist provided for (luis) TEDS.toileting also completed with CGA for clothing management, hygiene while seated. B. Oral Hygiene (includes gums in edentulous pts): * 05.Setup/clean up Asst C. Toileting Hygiene (not transfers): * 04.Sup/Touch Assist E. Shower/Bathe Self (not transfers, can be sponge bath): * 04.Sup/Touch Assist F. Upper Body Dressing (includes bra, not hospital gown): * 05.Setup/clean up Asst G. Lower Body Dressing (includes briefs and knee braces): * 04.Sup/Touch Assist H. Putting on/taking off footwear (includes TEDS and AFO): * 03.Partial/Mod Assist Putting on/taking off footwear Comments: * pt is able to doff/don (luis) socks but requires assist for donning TEDS Stand-Static * F+ Stand-Dynamic * F+ Balance Training Note * no LOB: CGA at walker for all dynamic standing balace during adl routine. OT Intervention Note * pt progressing well toward ot goals. pt demonstrates good carryover of AE training and requires only min assist for LB adl this date. pt left in supine at end of session with call light in reach. pt would benefit from HEP/stretching exercises to address neck/shoulder pain. Patient: Munira Harper : 1950 Age/Sex: 66/F Unit#: [id number] Room/Bed: M4152/ User: Cora Copeland OT Ssv Date: 07/22/17 14:57 Type: OT Progress Time In * 13:15 Time Out * 13:25 OT Treatment Time-Minutes * 10 mins Type of Therapy Provided * Individual Precautions * Fall * Hip * WBAT Unit * Acute Inpatient Rehab Pain Start of Session * 4 Pain End of Session * 6 Pain Comment * pt reports up to 8/10 pain in BUE's. Nursing Notified Cognition * Within Normal Limits Cognition Comments * No significant cognitive deficits observed Supine to Sit * Standby Assist Sit to Supine * Minimum Assist Rolling * Not Tested Bed Mobility Notes * pt t/f supine to sit without use of leg senior information systems architect with increased time and cues. pt requires min assist for (lt) LE to return to supine; pt did not use leg senior information systems architect to get out of bed, however did use it to perform sit to supine. Sit to Stand * Contact Guard Assist Stand to Sit * Contact Guard Assist Bed to Chair * Not Tested Chair to Bed * Not Tested Toilet/Commode * Contact Guard Assist Shower/Tub * Not Tested Functional Transfer Notes: * pt performs sit to/from stand and commode t/f with CGA using FWW. Bathing * Not Tested Dressing-Upper Body * Not Tested Dressing-Lower Body * Not Tested Grooming * Not Tested Toileting * Contact Guard Assist Eating * Not Tested Meal Preparation/Home Management * Not Tested ADL Training Note * pt performed toileting with CGA for clothing management, hygiene while seated also with CGA. Did not require AE secondary to keeping pants above knees while using the toilet. A. Eating (include only those with PO intake): * 88.Not Attempted B. Oral Hygiene (includes gums in edentulous pts): * 88.Not Attempted C. Toileting Hygiene (not transfers): * 04.Sup/Touch Assist Toileting Hygiene Comments: * See ADL note above E. Shower/Bathe Self (not transfers, can be sponge bath): * 88.Not Attempted F. Upper Body Dressing (includes bra, not hospital gown): * 88.Not Attempted G. Lower Body Dressing (includes briefs and knee braces): * 04.Sup/Touch Assist Lower Body Dressing Comments: * See ADL note above H. Putting on/taking off footwear (includes TEDS and AFO): * 88.Not Attempted Sit-Static * G Sit-Dynamic * G Stand-Static * F+ Stand-Dynamic * F+ Balance Training Note * no LOB t/o session, during toileting and LB clothing management OT Intervention Note * Please see ADL note above. pt left in supine at end of session with call light in reach. pt would benefit from HEP/stretching exercises to address B UE shoulder pain. OT Goal Note * Cont with OT plan of care. Discharge Recommendations * Home w/services Safe for discharge at this time * No Patient: Munira Harper : 1950 Age/Sex: 66/F Unit#: [id number] Room/Bed: M4152/01 User: Alexandra Coley, PT [facility] PT Date: 07/22/17 15:22 Type: PT Progress Note Time In * 14:10 Time Out * 14:40 PT Treatment Time-Minutes * 30 mins Type of Therapy Provided * Individual Precautions * Fall * Hip * WBAT Unit * Acute Inpatient Rehab Pain Start of Session * 4 Pain End of Session * 4 Pain Comment * pt reports up to 6/10 pain in R shoulder Cognition * Within Normal Limits Cognition Comments * No significant cognitive deficits observed Supine to Sit * Not Tested Sit to Supine * Not Tested Rolling * Not Tested Sit to Stand * Contact Guard Assist Stand to Sit * Contact Guard Assist Bed to Chair * Not Tested Chair to Bed * Not Tested Toilet/Commode * Not Tested Transfer Training Notes * pt completing transfers today with CGA for safety. Sit-Static * G Sit-Dynamic * G Stand-Static * F+ Stand-Dynamic * F+ Balance Training Note * no LOB t/o session, during toileting and LB clothing management Ambulation Distance * 25 Feet Ambulation Level of Assist * Contact Guard Assist Assistive Device Used * Walker,Wheeled * Gait Belt Weight BearingStatus * WBAT Left * FWB Right Able to Maintain Weight Bearing Status * Yes Gait Training Note * Pt holds shoulders in scapular elevation while walking and sitting. VC to relax and let shoulder drop. Wheelchair Mobility Level of Assist * Not Tested Level of Assist for Stairs * Not Tested Stair Training Note * Pt notes that she has handicap accessable house for her son. She typically does sleep on the second floor however is noted to have first floor set up already until she is able to complete stair ambulation. A. Roll Left and Right: * 09.Not Applicable B. Sit to Lying: * 88.Not Attempted C. Lying to Sitting on Side of Bed: * 88.Not Attempted D. Sit to Stand: * 04.Sup/Touch Assist E. Chair/Yam-ue-Mtfyk Transfer: * 04.Sup/Touch Assist F. Toilet Transfer: * 88.Not Attempted G. Car Transfer: * 88.Not Attempted H. Does the patient walk?: * 2. Yes I. Walk 10 Feet: * 04.Sup/Touch Assist J. Walk 50' with Two Turns: * 88.Not Attempted K. Walk 150 Feet: * 88.Not Attempted L. Walking 10' on uneven surfaces: * 88.Not Attempted M. 1 Step (curb): * 88.Not Attempted N. 4 Steps (with or without railing): * 09.Not Applicable O. 12 Steps (with or without railing): * 09.Not Applicable P. Picking up Object from the Floor (from a standing): * 88.Not Attempted Q. Does the patient use a w/c (other than just transport): * 0. No Sitting Exercises * Long Arc Quads * Ankle Pumps Other Sitting Exercises * Bilateral Hip Flexion 3 x 10 reps Bialteral LAQ 3 x 10 reps Number of Reps Sitting * 10-15 Reps Therapeutic Exercises Note * focus on fucntional mobility this session with need to use the bathroom. PT Interventions * Gait Training * Therapeutic Excercise * Functional Training * Safety/Precautions PT Progress Note * Pt resports nausea of unknown origin and resulting headcahe. Nursing aware. PT Goal Note * OOB for meals. ambulation into bathroom as appropriate. Discharge Recommendations * Home w/services Safe for discharge at this time * No Patient: Munira Harper : 1950 Age/Sex: 66/F Unit#: [id number] [facility] User: Bryanna Zhao PT PT Date: 07/22/17 17:43 Type: PT Progress Note Time In * 09:45 Time Out * 10:45 PT Treatment Time-Minutes * 60 mins Type of Therapy Provided * Individual Precautions * Fall * Hip * WBAT Unit * Acute Inpatient Rehab Pain Start of Session * 4 Pain: During Session * 6 Pain Comment * pt reports up to 6/10 pain in R shoulder. Pt does not rate pain at end of session Subjective * Pt was alseep upon entering but awakens easily and was willing to participate in all that was asked of her. Cognition * Within Normal Limits Cognition Comments * No significant cognitive deficits observed Supine to Sit * Standby Assist Sit to Supine * Not Tested Rolling * Not Tested Bed Mobility Notes * pt did not use leg senior information systems architect to get out of bed Sit to Stand * Contact Guard Assist Stand to Sit * Contact Guard Assist Bed to Chair * Contact Guard Assist Chair to Bed * Contact Guard Assist Toilet/Commode * Contact Guard Assist Transfer Training Notes * pt completing transfers today with CGA for safety. Sit-Static * G Sit-Dynamic * G Stand-Static * F+ Stand-Dynamic * F+ Balance Training Note * no LOB t/o session, during toileting and ambulation Ambulation Distance * 25 Feet Ambulation Level of Assist * Contact Guard Assist Assistive Device Used * Walker,Wheeled * Gait Belt Weight BearingStatus * WBAT Left * FWB Right Able to Maintain Weight Bearing Status * Yes Gait Training Note * ambulation x 2 during session. Wheelchair Distance * 50 feet Wheelchair Mobility Level of Assist * Standby Assist Wheelchair Mobility Comment * pt noted to complete very slowly and frequently close her eyes while compelting. Level of Assist for Stairs * Not Tested Stair Training Note * Pt notes that she has handicap accessable house for her son. She typically does sleep on the second floor however is noted to have first floor set up already until she is able to complete stair ambulation. A. Roll Left and Right: * 09.Not Applicable B. Sit to Lying: * 88.Not Attempted C. Lying to Sitting on Side of Bed: * 05.Setup/clean up Asst D. Sit to Stand: * 04.Sup/Touch Assist E. Chair/Txl-bl-Akkcd Transfer: * 04.Sup/Touch Assist F. Toilet Transfer: * 04.Sup/Touch Assist G. Car Transfer: * 88.Not Attempted H. Does the patient walk?: * 2. Yes I. Walk 10 Feet: * 04.Sup/Touch Assist J. Walk 50' with Two Turns: * 88.Not Attempted K. Walk 150 Feet: * 88.Not Attempted L. Walking 10' on uneven surfaces: * 88.Not Attempted M. 1 Step (curb): * 88.Not Attempted N. 4 Steps (with or without railing): * 09.Not Applicable O. 12 Steps (with or without railing): * 09.Not Applicable P. Picking up Object from the Floor (from a standing): * 88.Not Attempted Q. Does the patient use a w/c (other than just transport): * 0. No R. Wheel 50' with 2 Turns(seated in w/c): * 04.Sup/Touch Assist RR. What type of w/c?: * 1. Manual Therapeutic Exercises Note * focus on fucntional mobility this session and ambulation PT Interventions * Gait Training * Therapeutic Excercise * Functional Training * Bed Mobility * Balance Activities * Safety/Precautions * Pt./Family Education * D/C Needs PT Progress Note * Pt resports nausea of unknown origin at times. Pt was able to complete consistent ambulation. Pt was also able to do some w/c mobility during session and asks to stay up on w/c at this time. Nursing notified. PT Goal Note * OOB for meals. ambulation into bathroom as appropriate. Discharge Recommendations * Home w/services Safe for discharge at this time * No Allergies Coded Allergies: No Known Drug Allergy (Unverified Allergy, Unknown, 11/01/12) Vital Signs Vital Signs Date Time Temp Pulse Resp B/P (MAP) Pulse Ox O2 Delivery O2 Flow Rate FiO2 07/22/17 14:10 98.0 107 16 102/55 (71) 95 Room Air Laboratory Data CBC/BMP Laboratory Tests 07/22/17 07:08 Red Blood Count 2.72 L, Mean Corpuscular Volume 97.8 H, Mean Corpuscular Hemoglobin 32.7, Mean Corpuscular Hemoglobin Concent 33.5, Red Cell Distribution Width 12.9 Labs 24H Laboratory Tests 2 07/22/17 07:08: Nucleated Red Blood Cells % (auto) 0.0, Prothrombin Time 23.3H, Prothromb Time International Ratio 1.99, Iron Level 9L, Total Iron Binding Capacity 192L, Transferrin % Saturation 4.7L, Ferritin 173, Vitamin B12 Level 1235H, Folate 15.8 Current Medications Current Medications Current Medications Acetaminophen (Tylenol Tab) 650 mg Q6HP PRN PO PAIN OR FEVER Last administered on 07/22/17t 13:23; Start 07/20/17 at 17:00; Stop 08/19/17 at 16:59 Bisacodyl (Dulcolax Tab) 5 mg DAILYPRN PRN PO CONSTIPATION; Start 07/20/17 at 17:00; Stop 08/19/17 at 16:59 Folic Acid (Folic Acid) 1 mg DAILY PO Last administered on 07/22/17 08:49; Start 07/21/17 at 09:00; Stop 08/20/17 at 08:59 Losartan Potassium (Cozaar) 100 mg DAILY PO Last administered on 07/22/17 08: 49; Start 07/21/17 at 09:00; Stop 08/20/17 at 08:59 Magnesium Hydroxide (Milk Of Magnesia) 30 ml DAILYPRN PRN PO CONSTIPATION; Start 07/20/17 at 17:00; Stop 08/19/17 at 16:59 Menthol/Methyl Salicylate (Bengay Cream) Bilateral shoulders and neck QID TOP Last administered on 07/22/17 16:51; Start 07/22/17 at 17:00; Stop 07/29/17 at 16:59 Multivitamins (Theragram-M) 1 tab DAILY PO Last administered on 07/22/17 08: 49; Start 07/21/17 at 09:00; Stop 08/20/17 at 08:59 Naproxen (Naprosyn) 500 mg BIDP PRN PO PAIN; Start 07/20/17 at 17:30; Stop at 17:29 Oxazepam (Serax) 10 mg Q6HP PRN PO WITHDRAWAL SYMPTOMS Last administered on 10:12; Start 07/20/17 at 17:30; Stop 07/23/17 at 12:00 Polyethylene Glycol (Miralax) 1 pkt DAILY PO ; Start 07/21/17 at 09:00; Stop at 08:59 Senna/Docusate Sodium (Senokot S) 1 tab BID PO Last administered on 07/22/17 08:49; Start 07/20/17 at 21:00; Stop 08/19/17 at 20:59 Thiamine HCl (Thiamine HCl) 100 mg DAILY PO Last administered on 07/22/17 08: 49; Start 07/21/17 at 09:00; Stop 08/20/17 at 08:59 Tramadol HCl (Ultram) 50 mg Q6HP PRN PO MODERATE PAIN (PS 5-7); Start at 17:30; Stop 07/27/17 at 17:29 Tramadol HCl (Ultram) 100 mg Q6HP PRN PO SEVERE PAIN (PS 8-10) Last administered on 07/22/17t 07:45; Start 07/20/17 at 17:30; Stop 07/27/17 at 17 :29 RUPERT CALLEJAS MD Jul 22, 2017 18:31
[2017-07-22 20:00] VITALS: BP 109/61
[2017-07-22 21:00] VITALS: BP 109/61
[2017-07-23] MEDS: traMADol 50 MG TAB PO PRN ×3 (02:49→20:08)
[2017-07-23 06:00] VITALS: BP 113/62
[2017-07-23 09:00] LABS: MEAN CORPUSCULAR VOLUME 97.1 fl (80.0-96.0); PLATELET COUNT, AUTOMATED 311 10^3/uL (150-450); RED CELL DISTRIBUTION WIDTH 12.7 % (11.5-14.5)
[2017-07-23] MEDS: SENOKOT S TAB PO SCH ×2 (09:01→20:07)
[2017-07-23] MEDS: THIAMINE 100 MG TAB PO SCH (09:02)
[2017-07-23] MEDS: MULTIVITAMINS/MINERALS THERAP 1 TAB PO SCH (09:02)
[2017-07-23] MEDS: LOSARTAN 50 MG TAB PO SCH (09:02)
[2017-07-23] MEDS: FOLIC ACID 1 MG TAB PO SCH (09:02)
[2017-07-23] MEDS: MIRALAX *UNIT DOSE* 17GM PACKET PO SCH (09:03)
[2017-07-23] MEDS: ANALGESIC BALM CRM 120 GM TOP SCH ×4 (09:03→20:08)
[2017-07-23 09:15] LABS: INR 1.88
[2017-07-23 09:31] LABS: CALCIUM LEVEL 8.6 MG/DL (8.8-10.2); CREATININE FOR GFR 1.29 MG/DL (0.55-1.02); GLOMERULAR FILTRATION RATE 43.8 (>45); POTASSIUM SERUM 3.2 MEQ/L (3.5-5.1)
[2017-07-23] MEDS ORDERED: POTASSIUM CHLORIDE 10 MEQ SR TABLET PO ONE (10:45)
--- NOTE | 2017-07-23 10:47 | IPNPDOC ---
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 Of concern is patient's history of 4 cocktails daily so she has been on ethanol withdrawal precautions. 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 Patient has done well initially in physical and occupational therapy and is felt to be appropriate for acute intensive rehabilitation. This morning the patient noted headache and some photosensitivity while having tachycardia and exhibiting some anxious behaviors. This cleared rapidly with Serax. Otherwise patient is having some left hip pain and is compensating well and working with nursing, occupational therapy and physical therapy. ALLERGIES: See Below MEDICATIONS: Reviewed, see below. OBJECTIVE: VITAL SIGNS: Please see below. PHYSICAL EXAMINATION: GENERAL: Short well-nourished well-developed late middle-aged white female who looks approximately stated age. Initially anxious with tachycardia but on reexamination much more relaxed and comfortable with normal heart rate. Patient is alert and well oriented. HEENT: Normocephalic/atraumatic. CARDIOVASCULAR: Rapid but in normal range heart rate with normal S1-S2. 2/4 bilateral radial pulses. LUNGS: All salcedo clear to auscultation. ABDOMEN: Benign with normal bowel sounds. Patient reporting bowel movement. NEUROLOGICAL: Patient alert and oriented 4. Affect now pleasant and cooperative without the anxiousness. Memory grossly intact. Bilateral upper extremities with good sensory motor function. Good sensory motor function of the right lower extremity and only some limited guarding of the left hip on movement. SKIN: Healing left posterior lateral hip incision. LABORATORY DATA: Reviewed. Please see below. MICROBIOLOGY: Please see below. IMAGING: No new imaging. DVT prophylaxis ordered?: Coumadin, AVERY hose and sequential compression stockings. INR today is 1.88 and Coumadin 4 mg is been ordered for tonight by orthopedics. ASSESSMENT AND PLAN: 1. Rehabilitation of left hip fracture status post left hip hemiarthroplasty placement: Patient is done well participating in physical and occupational therapy as well as working with nursing staff today. She is highly motivated and I anticipate approximate seven-day length of stay. Pain control is fairly good at this time. Patient good making progress in physical and occupational therapies. Based on patient's progress today we anticipate discharge date of 07/27/17. Please see attached therapy notes below. 2. Ethanol withdrawal: Patient's headache, tachycardia, photophobia and nausea and emesis are highly consistent with ethanol withdrawal. She responded well to the Serax. Patient is now pass 96 hrs off EtOH. I will stop Serax order. 3. Anemia: Patient with moderate to severe anemia with an H&H of 8.8 and 26.7% today on 07/23/17. CBC will be rechecked At present patient heart rate and blood pressure have been stable after the initial tachycardia. 4. Nutrition: Patient albumin has decreased now to 2.5. We will continue observe this encourage nutrition. A further note liver function tests are normal except for mild elevation in AST @ 42, which is slightly better than on the acute floor area. We will continue to observe this and supplement as appropriate. 5. Hypokalemia: Patient dropped to 3.2, so I will give KDur 40 MEQ today and follow K+ levels. TIME SPENT: Chart Review, examination and documentation require greater than 25 minutes. Patient: Munira Harper : 1950 Age/Sex: 66/F Unit#: [id number] Room/Bed: M4152/01 User: ELIAS Arita OT Date: 07/22/17 14:57 Type: ELIAS Progress Time In * 13:15 Time Out * 13:25 OT Treatment Time-Minutes * 10 mins Type of Therapy Provided * Individual Precautions * Fall * Hip * WBAT Unit * Acute Inpatient Rehab Pain Start of Session * 4 Pain End of Session * 6 Pain Comment * pt reports up to 8/10 pain in BUE's. Nursing Notified Cognition * Within Normal Limits Cognition Comments * No significant cognitive deficits observed Supine to Sit * Standby Assist Sit to Supine * Minimum Assist Rolling * Not Tested Bed Mobility Notes * pt t/f supine to sit without use of leg hadoop administrator with increased time and cues. pt requires min assist for (lt) LE to return to supine; pt did not use leg hadoop administrator to get out of bed, however did use it to perform sit to supine. Sit to Stand * Contact Guard Assist Stand to Sit * Contact Guard Assist Bed to Chair * Not Tested Chair to Bed * Not Tested Toilet/Commode * Contact Guard Assist Shower/Tub * Not Tested Functional Transfer Notes: * pt performs sit to/from stand and commode t/f with CGA using FWW. Bathing * Not Tested Dressing-Upper Body * Not Tested Dressing-Lower Body * Not Tested Grooming * Not Tested Toileting * Contact Guard Assist Eating * Not Tested Meal Preparation/Home Management * Not Tested ADL Training Note * pt performed toileting with CGA for clothing management, hygiene while seated also with CGA. Did not require AE secondary to keeping pants above knees while using the toilet. A. Eating (include only those with PO intake): * 88.Not Attempted B. Oral Hygiene (includes gums in edentulous pts): * 88.Not Attempted C. Toileting Hygiene (not transfers): * 04.Sup/Touch Assist Toileting Hygiene Comments: * See ADL note above E. Shower/Bathe Self (not transfers, can be sponge bath): * 88.Not Attempted F. Upper Body Dressing (includes bra, not hospital gown): * 88.Not Attempted G. Lower Body Dressing (includes briefs and knee braces): * 04.Sup/Touch Assist Lower Body Dressing Comments: * See ADL note above H. Putting on/taking off footwear (includes TEDS and AFO): * 88.Not Attempted Sit-Static * G Sit-Dynamic * G Stand-Static * F+ Stand-Dynamic * F+ Balance Training Note * no LOB t/o session, during toileting and LB clothing management OT Intervention Note * Please see ADL note above. pt left in supine at end of session with call light in reach. pt would benefit from HEP/stretching exercises to address B UE shoulder pain. OT Goal Note * Cont with OT plan of care. Discharge Recommendations * Home w/services Safe for discharge at this time * No Patient: Munira Harper : 1950 Age/Sex: 66/F Unit#: [id number] Room/Bed: M4152/01 User: Bryanna Zhao PT PT Date: 07/22/17 17:43 Type: PT Progress Note Time In * 09:45 Time Out * 10:45 PT Treatment Time-Minutes * 60 mins Type of Therapy Provided * Individual Precautions * Fall * Hip * WBAT Unit * Acute Inpatient Rehab Pain Start of Session * 4 Pain: During Session * 6 Pain Comment * pt reports up to 6/10 pain in R shoulder. Pt does not rate pain at end of session Subjective * Pt was alseep upon entering but awakens easily and was willing to participate in all that was asked of her. Cognition * Within Normal Limits Cognition Comments * No significant cognitive deficits observed Supine to Sit * Standby Assist Sit to Supine * Not Tested Rolling * Not Tested Bed Mobility Notes * pt did not use leg hadoop administrator to get out of bed Sit to Stand * Contact Guard Assist Stand to Sit * Contact Guard Assist Bed to Chair * Contact Guard Assist Chair to Bed * Contact Guard Assist Toilet/Commode * Contact Guard Assist Transfer Training Notes * pt completing transfers today with CGA for safety. Sit-Static * G Sit-Dynamic * G Stand-Static * F+ Stand-Dynamic * F+ Balance Training Note * no LOB t/o session, during toileting and ambulation Ambulation Distance * 25 Feet Ambulation Level of Assist * Contact Guard Assist Assistive Device Used * Walker,Wheeled * Gait Belt Weight BearingStatus * WBAT Left * FWB Right Able to Maintain Weight Bearing Status * Yes Gait Training Note * ambulation x 2 during session. Wheelchair Distance * 50 feet Wheelchair Mobility Level of Assist * Standby Assist Wheelchair Mobility Comment * pt noted to complete very slowly and frequently close her eyes while compelting. Level of Assist for Stairs * Not Tested Stair Training Note * Pt notes that she has handicap accessable house for her son. She typically does sleep on the second floor however is noted to have first floor set up already until she is able to complete stair ambulation. A. Roll Left and Right: * 09.Not Applicable B. Sit to Lying: * 88.Not Attempted C. Lying to Sitting on Side of Bed: * 05.Setup/clean up Asst D. Sit to Stand: * 04.Sup/Touch Assist E. Chair/Lhf-tb-Hmflw Transfer: * 04.Sup/Touch Assist F. Toilet Transfer: * 04.Sup/Touch Assist G. Car Transfer: * 88.Not Attempted H. Does the patient walk?: * 2. Yes I. Walk 10 Feet: * 04.Sup/Touch Assist J. Walk 50' with Two Turns: * 88.Not Attempted K. Walk 150 Feet: * 88.Not Attempted L. Walking 10' on uneven surfaces: * 88.Not Attempted M. 1 Step (curb): * 88.Not Attempted N. 4 Steps (with or without railing): * 09.Not Applicable O. 12 Steps (with or without railing): * 09.Not Applicable P. Picking up Object from the Floor (from a standing): * 88.Not Attempted Q. Does the patient use a w/c (other than just transport): * 0. No R. Wheel 50' with 2 Turns(seated in w/c): * 04.Sup/Touch Assist RR. What type of w/c?: * 1. Manual Therapeutic Exercises Note * focus on fucntional mobility this session and ambulation PT Interventions * Gait Training * Therapeutic Excercise * Functional Training * Bed Mobility * Balance Activities * Safety/Precautions * Pt./Family Education * D/C Needs PT Progress Note * Pt resports nausea of unknown origin at times. Pt was able to complete consistent ambulation. Pt was also able to do some w/c mobility during session and asks to stay up on w/c at this time. Nursing notified. PT Goal Note * OOB for meals. ambulation into bathroom as appropriate. Discharge Recommendations * Home w/services Safe for discharge at this time * No Allergies Coded Allergies: No Known Drug Allergy (Unverified Allergy, Unknown, 11/01/12) Vital Signs Vital Signs Date Time Temp Pulse Resp B/P (MAP) Pulse Ox O2 Delivery O2 Flow Rate FiO2 07/23/17 09:03 18 07/23/17 09:02 113/62 07/23/17 06:00 97.7 97 98 Room Air Laboratory Data CBC/BMP Laboratory Tests 07/23/17 08:47 Red Blood Count 2.75 L, Mean Corpuscular Volume 97.1 H, Mean Corpuscular Hemoglobin 32.0, Mean Corpuscular Hemoglobin Concent 33.0, Red Cell Distribution Width 12.7, Calcium Level 8.6 L Labs 24H Laboratory Tests 2 07/23/17 08:47: Nucleated Red Blood Cells % (auto) 0.0, Prothrombin Time 22.2H, Prothromb Time International Ratio 1.88, Anion Gap 8, Glomerular Filtration Rate 43.8L, Blood Urea Nitrogen 17#, Creatinine 1.29#H, Sodium Level 137, Potassium Level 3.2L, Chloride Level 100, Carbon Dioxide Level 29, Calcium Level 8.6L Current Medications Current Medications Current Medications Acetaminophen (Tylenol Tab) 650 mg Q6HP PRN PO PAIN OR FEVER Last administered on 07/22/17 20:06; Start 07/20/17 at 17:00; Stop 08/19/17 at 16:59 Bisacodyl (Dulcolax Tab) 5 mg DAILYPRN PRN PO CONSTIPATION; Start 07/20/17 at 17:00; Stop 08/19/17 at 16:59 Folic Acid (Folic Acid) 1 mg DAILY PO Last administered on 07/23/17 09:02; Start 07/21/17 at 09:00; Stop 08/20/17 at 08:59 Losartan Potassium (Cozaar) 100 mg DAILY PO Last administered on 07/23/17 09: 02; Start 07/21/17 at 09:00; Stop 08/20/17 at 08:59 Magnesium Hydroxide (Milk Of Magnesia) 30 ml DAILYPRN PRN PO CONSTIPATION; Start 07/20/17 at 17:00; Stop 08/19/17 at 16:59 Menthol/Methyl Salicylate (Bengay Cream) Bilateral shoulders and neck QID TOP Last administered on 07/23/17 09:03; Start 07/22/17 at 17:00; Stop 07/29/17 at 16:59 Multivitamins (Theragram-M) 1 tab DAILY PO Last administered on 07/23/17 09: 02; Start 07/21/17 at 09:00; Stop 08/20/17 at 08:59 Naproxen (Naprosyn) 500 mg BIDP PRN PO PAIN; Start 07/20/17 at 17:30; Stop at 17:29 Oxazepam (Serax) 10 mg Q6HP PRN PO WITHDRAWAL SYMPTOMS Last administered on 10:12; Start 07/20/17 at 17:30; Stop 07/23/17 at 09:14; Status DC Polyethylene Glycol (Miralax) 1 pkt DAILY PO ; Start 07/21/17 at 09:00; Stop 07/23/17 at 09:14; Status DC Senna/Docusate Sodium (Senokot S) 1 tab BID PO Last administered on 07/23/17 09:01; Start 07/20/17 at 21:00; Stop 08/19/17 at 20:59 Thiamine HCl (Thiamine HCl) 100 mg DAILY PO Last administered on 07/23/17 09: 02; Start 07/21/17 at 09:00; Stop 08/20/17 at 08:59 Tramadol HCl (Ultram) 50 mg Q6HP PRN PO MODERATE PAIN (PS 5-7); Start at 17:30; Stop 07/27/17 at 17:29 Tramadol HCl (Ultram) 100 mg Q6HP PRN PO SEVERE PAIN (PS 8-10) Last administered on 07/23/17 09:03; Start 07/20/17 at 17:30; Stop 07/27/17 at 17 :29 RUPERT CALLEJAS MD Jul 23, 2017 10:47
[2017-07-23] MEDS ORDERED: TRAM50TA2 PO (11:36)
--- NOTE | 2017-07-23 11:54 | IPNPDOC ---
Date Seen The patient was seen on 07/23/17. Progress Note HPI: 66year oldF S/P mechanical fall, admitted to [facility] 07/18-07/20 related to Left hip fracture S/P Left hip hemiarthroplasty 07/18 as per Orthopedic surgery. Pt is transferred to [facility] 07/20/17. No acute medical complaints today. Pt states she has had some pain around the Lt hip incision site. Denies any fevers, chills, weakness, fatigue, Headache, Chest Pain, Shortness of breath, cough, palpitations, abdominal pain, N/V/D or changes in bowel or bladder habits. PAST MEDICAL HISTORY: Large cell lymphoma on the left, remission x 20 years Hypertension. Alcohol use. PAST SURGICAL HISTORY: Endoscopy. Port placement. PE: GEN: 66yoF, appears stated age. Well-nourished, well developed. No acute distress. Alert and oriented x 3. Pleasant, interactive. HEENT: Normocephalic, atraumatic. Extraocular movements are intact. No nystagmus appreciated. Sclera are nonicteric. Conjunctiva without injection. Pharynx pink and moist. CHEST: Regular rate and rhythm, +S1, +S2 LUNGS: Clear to auscultation bilaterally. No wheezes, rales, or rhonchi. Breathing appears symmetric and easy. ABD: Round, soft, non-tender, non-distended. +Bowel sounds throughout. No rebound or guarding. EXT: No lower extremity edema appreciated. SKIN: [place], dry, warm.No rashes. NEURO: No focal deficits appreciated. A&P: 66year oldF S/P mechanical fall, admitted to [facility] 07/18-07/20 related to Left hip fracture S/P Left hip hemiarthroplasty 07/18 as per Orthopedic surgery. Pt is transferred to [facility] 07/20/17. 1. Mechanical Fall/Left hip fracture/Left hip hemiarthroplasty. Mgmt as per Orthopedic surgery. DVT prophylaxis as per orthopedics.Coumadin. PT/OT as per Orthopedics. Pain control as per [facility]/Dr Fish. Bowel care as per [facility]/Dr Fish. Disposition as per [facility]. 2. HTN. Cozaar. SBP trend 102-113. 3. Alcohol use. Serax as needed. Continue MVI/Folic acid/thiamine. 4. Acute blood loss anemia. Baseline 13. Add fe studies/B12/folate Stool OB Monitor. 5. Mild leukocytosis. Resolved. Pt afebrile, asymptomatic. Monitor. Continue to encourage I/S Q1hr WA. VS, I&O, 24H, Fishbone Vital Signs/I&O Vital Signs Date Time Temp Pulse Resp B/P (MAP) Pulse Ox O2 Delivery O2 Flow Rate FiO2 07/23/17 09:45 18 07/23/17 09:02 113/62 07/23/17 06:00 97.7 97 98 Room Air I&O- Last 24 Hours up to 6 AM 07/23/17 06:00 Intake Total 600 ml Balance 600 ml Laboratory Data 24H LABS Laboratory Tests 2 07/23/17 08:47: Nucleated Red Blood Cells % (auto) 0.0, Prothrombin Time 22.2H, Prothromb Time International Ratio 1.88, Anion Gap 8, Glomerular Filtration Rate 43.8L, Blood Urea Nitrogen 17#, Creatinine 1.29#H, Sodium Level 137, Potassium Level 3.2L, Chloride Level 100, Carbon Dioxide Level 29, Calcium Level 8.6L CBC/BMP Laboratory Tests 07/23/17 08:47 Red Blood Count 2.75 L, Mean Corpuscular Volume 97.1 H, Mean Corpuscular Hemoglobin 32.0, Mean Corpuscular Hemoglobin Concent 33.0, Red Cell Distribution Width 12.7, Calcium Level 8.6 L Margie Murphy Jul 23, 2017 11:53
[2017-07-23 14:00] VITALS: BP 109/68
[2017-07-23] MEDS ORDERED: WARFARIN SOD 4 MG TAB PO ONE (17:00)
[2017-07-23 20:00] VITALS: BP 140/65
[2017-07-23] MEDS: NAPROXEN 250 MG TAB PO PRN (23:45)
[2017-07-24 06:00] VITALS: BP 151/54
[2017-07-24 06:45] LABS: MEAN CORPUSCULAR HEMOGLOBIN 31.8 pg (27.0-33.0); MEAN CORPUSCULAR HGB CONC 33.1 g/dl (32.0-36.5); PLATELET COUNT, AUTOMATED 374 10^3/uL (150-450); RED CELL DISTRIBUTION WIDTH 12.8 % (11.5-14.5); WHITE BLOOD COUNT 7.9 10^3/uL (4.0-10.0)
[2017-07-24] MEDS: traMADol 50 MG TAB PO PRN ×2 (06:45→13:38)
[2017-07-24 06:58] LABS: INR 2.32
[2017-07-24 07:02] LABS: CALCIUM LEVEL 8.7 MG/DL (8.8-10.2); CREATININE FOR GFR 1.09 MG/DL (0.55-1.02); GLOMERULAR FILTRATION RATE 53.1 (>45); POTASSIUM SERUM 3.7 MEQ/L (3.5-5.1)
[2017-07-24] MEDS: THIAMINE 100 MG TAB PO SCH (08:40)
[2017-07-24] MEDS: MULTIVITAMINS/MINERALS THERAP 1 TAB PO SCH (08:40)
[2017-07-24] MEDS: LOSARTAN 50 MG TAB PO SCH (08:40)
[2017-07-24] MEDS: SENOKOT S TAB PO SCH ×2 (08:40→20:11)
[2017-07-24] MEDS: FOLIC ACID 1 MG TAB PO SCH (08:40)
[2017-07-24] MEDS: ANALGESIC BALM CRM 120 GM TOP SCH ×4 (08:40→20:11)
[2017-07-24] MEDS: NAPROXEN 250 MG TAB PO PRN ×2 (08:41→20:11)
[2017-07-24] MEDS ORDERED: ONDANSETRON 4 MG ORAL DISINTEGRATING TAB (S0181) PO PRN (09:15)
[2017-07-24 14:02] VITALS: BP 119/86
[2017-07-24] MEDS: ACETAMINOPHEN TAB 650MG DOSE (2X325MG) PO PRN (18:35)
[2017-07-24 20:12] VITALS: BP 124/89
[2017-07-25] MEDS: traMADol 50 MG TAB PO PRN ×4 (00:05→22:34)
[2017-07-25] MEDS: ACETAMINOPHEN TAB 650MG DOSE (2X325MG) PO PRN ×2 (04:36→21:10)
[2017-07-25 06:32] VITALS: BP 138/72
[2017-07-25 06:33] LABS: MEAN CORPUSCULAR HEMOGLOBIN 32.1 pg (27.0-33.0); MEAN CORPUSCULAR HGB CONC 33.6 g/dl (32.0-36.5); MEAN CORPUSCULAR VOLUME 95.4 fl (80.0-96.0); PLATELET COUNT, AUTOMATED 374 10^3/uL (150-450); RED CELL DISTRIBUTION WIDTH 12.8 % (11.5-14.5)
[2017-07-25 06:44] LABS: INR 2.35
[2017-07-25 06:52] LABS: CALCIUM LEVEL 8.8 MG/DL (8.8-10.2); CREATININE FOR GFR 0.99 MG/DL (0.55-1.02); GLOMERULAR FILTRATION RATE 59.4 (>45); POTASSIUM SERUM 3.4 MEQ/L (3.5-5.1)
[2017-07-25] MEDS: MULTIVITAMINS/MINERALS THERAP 1 TAB PO SCH (08:14)
[2017-07-25] MEDS: FOLIC ACID 1 MG TAB PO SCH (08:14)
[2017-07-25] MEDS: SENOKOT S TAB PO SCH ×2 (08:14→21:09)
[2017-07-25] MEDS: THIAMINE 100 MG TAB PO SCH (08:14)
[2017-07-25] MEDS: LOSARTAN 50 MG TAB PO SCH (08:15)
[2017-07-25] MEDS: ANALGESIC BALM CRM 120 GM TOP SCH ×4 (08:16→21:10)
[2017-07-25 14:00] VITALS: BP 116/70
[2017-07-25 21:00] VITALS: BP 114/71
[2017-07-26 06:00] VITALS: BP 161/84
[2017-07-26] MEDS: traMADol 50 MG TAB PO PRN ×3 (06:14→21:03)
[2017-07-26 06:53] LABS: MEAN CORPUSCULAR HGB CONC 33.3 g/dl (32.0-36.5); PLATELET COUNT, AUTOMATED 433 10^3/uL (150-450); RED CELL DISTRIBUTION WIDTH 12.7 % (11.5-14.5); WHITE BLOOD COUNT 5.6 10^3/uL (4.0-10.0)
[2017-07-26 07:05] VITALS: BP 133/70
[2017-07-26 07:06] LABS: INR 2.21
[2017-07-26 07:25] LABS: ANION GAP 7 MEQ/L (8-16); BLOOD UREA NITROGEN 18 MG/DL (7-18); CALCIUM LEVEL 8.5 MG/DL (8.8-10.2); CARBON DIOXIDE LEVEL 31 MEQ/L (21-32); CHLORIDE LEVEL 103 MEQ/L (98-107); CREATININE FOR GFR 0.83 MG/DL (0.55-1.02); GLOMERULAR FILTRATION RATE > 60.0 (>45); GLUCOSE, FASTING 83 MG/DL (80-110); POTASSIUM SERUM 4.1 MEQ/L (3.5-5.1); SODIUM LEVEL 141 MEQ/L (136-145)
[2017-07-26] MEDS: THIAMINE 100 MG TAB PO SCH (08:58)
[2017-07-26] MEDS: SENOKOT S TAB PO SCH ×3 (08:58→20:44)
[2017-07-26] MEDS: FOLIC ACID 1 MG TAB PO SCH (08:58)
[2017-07-26] MEDS: MULTIVITAMINS/MINERALS THERAP 1 TAB PO SCH (08:58)
[2017-07-26] MEDS: LOSARTAN 50 MG TAB PO SCH (08:59)
[2017-07-26] MEDS: ANALGESIC BALM CRM 120 GM TOP SCH ×4 (08:59→20:44)
[2017-07-26] MEDS: ACETAMINOPHEN TAB 650MG DOSE (2X325MG) PO PRN (10:45)
[2017-07-26 14:00] VITALS: BP 128/59
[2017-07-26] MEDS ORDERED: WARFARIN SOD 1 MG TAB PO ONE (17:00)
[2017-07-26 20:00] VITALS: BP 142/75
[2017-07-27] MEDS: traMADol 50 MG TAB PO PRN ×2 (02:58→08:30)
[2017-07-27 06:00] VITALS: BP 141/84
[2017-07-27] MEDS ORDERED: COUM2.5T17 PO (07:10)
[2017-07-27 07:16] LABS: MEAN CORPUSCULAR HEMOGLOBIN 32.2 pg (27.0-33.0); MEAN CORPUSCULAR HGB CONC 33.7 g/dl (32.0-36.5); MEAN CORPUSCULAR VOLUME 95.5 fl (80.0-96.0); PLATELET COUNT, AUTOMATED 448 10^3/uL (150-450); RED CELL DISTRIBUTION WIDTH 12.8 % (11.5-14.5)
[2017-07-27 07:25] LABS: INR 2.15
[2017-07-27 07:34] LABS: ANION GAP 6 MEQ/L (8-16); BLOOD UREA NITROGEN 15 MG/DL (7-18); CALCIUM LEVEL 8.2 MG/DL (8.8-10.2); CARBON DIOXIDE LEVEL 31 MEQ/L (21-32); CHLORIDE LEVEL 103 MEQ/L (98-107); CREATININE FOR GFR 0.76 MG/DL (0.55-1.02); GLOMERULAR FILTRATION RATE > 60.0 (>45); GLUCOSE, FASTING 89 MG/DL (80-110); POTASSIUM SERUM 3.6 MEQ/L (3.5-5.1); SODIUM LEVEL 140 MEQ/L (136-145)
[2017-07-27 08:28] VITALS: BP 141/84
[2017-07-27] MEDS: THIAMINE 100 MG TAB PO SCH (08:28)
[2017-07-27] MEDS: FOLIC ACID 1 MG TAB PO SCH (08:28)
[2017-07-27] MEDS: ANALGESIC BALM CRM 120 GM TOP SCH (08:28)
[2017-07-27] MEDS: LOSARTAN 50 MG TAB PO SCH (08:28)
[2017-07-27] MEDS: MULTIVITAMINS/MINERALS THERAP 1 TAB PO SCH (08:28)
[2017-07-27] MEDS: SENOKOT S TAB PO SCH (08:29)
[2017-07-27] MEDS: ACETAMINOPHEN TAB 650MG DOSE (2X325MG) PO PRN (11:38)
--- NOTE | 2017-07-28 15:35 | PMRDS ---
DATE OF ADMISSION: 07/20/2017 DATE OF DISCHARGE: 07/27/2017 DISCHARGE DIAGNOSIS: Rehabilitation of left hip fracture sustained on 07/18/2017 and treated with cemented hemiarthroplasty on 07/18/2017. 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 Patient was evaluated at the emergency room at [facility] and seen also by orthopedic surgery, and on the same day Dr. Eid performed a cemented hemiarthroplasty. Of concern was inebriation and patient's ethanol use. She does have past medical history including large-cell lymphoma that has been in remission for 20 years. She also has hypertension, osteoarthritis, and some apparently osteoporosis. Patient was started on physical and occupational therapy, was shown to be making progress, and appeared to likely benefit from acute intensive rehabilitation. HOSPITAL COURSE: She was admitted on 07/20/2017 and started on physical and occupational therapy. She was noted on the morning of the second day to have some tachycardia and signs of withdrawal and was treated with Serax for it. Otherwise, patient remained medically stable throughout her admission and was highly focused and motivated in therapies. In physical therapy patient initially showing herself to be standby assist in supine to sit, moderate assist in sit to supine, and minimal assist in rolling, sit to stand, stand to sit, transfers contact guard assist and bed to chair and chair to bed as well as transfer to toilet or commode and was able to ambulate 40 feet with contact-guard, gait belt , and front-wheeled walker. Not able to do steps initially and shown good to good-minus balance except for standing dynamic, which was fair plus. OT showed need for contact-guard assistance in dressing lower body and toileting. Patient proceeded to modified independent in activities of daily living (ADLs) and transfers with improvement to good minus in standing dynamic balance and ambulating greater than 150 feet independently using a front-wheeled walker, being able to do wheelchair mobility for greater than 170 feet with modified independence, and do six stairs with the left-handed railing with standby assistance. DISCHARGE MEDICATIONS: Patient on Coumadin 2.5 mg a day to be managed by orthopedics and have protime/INRs drawn twice a week by home care nursing. DISCHARGE MEDICATIONS: She will continue on Eszopiclone 1 mg at bedtime as needed for insomnia, Excedrin PM two tablets at bedtime, folic acid 1 mg daily, losartan 100 mg daily for hypertension, multivitamin daily, senna plus 8.6 mg twice a day, Tramadol 50 mg tablets, two tablets every 6 hours moderate to severe pain. She will have home care PT and OT as well as nursing. She is to see Dr. Brown, her primary care, on August 10 at 9:15 in the morning and Dr. Joaquin on August 03 at 4 p.m. TIME SPENT ON DISCHARGE: Greater than 35 minutes. MERCEDES
== END 2017-07-27 12:30 | disposition home health service (06) | DRG 560 ==
LOC: M PM&R 16:20
PROVIDERS: ADMIT Physical Medicine & Rehabilitation; ATTEND Physical Medicine & Rehabilitation
DX: S72.002D Fracture of unspecified part of neck of left femur, subsequent encounter for closed fracture with routine healing (principal); C85.90 Non-Hodgkin lymphoma, unspecified, unspecified site; D62 Acute posthemorrhagic anemia; I10 Essential (primary) hypertension; M19.90 Unspecified osteoarthritis, unspecified site; F10.10 Alcohol abuse, uncomplicated; I70.209 Unspecified atherosclerosis of native arteries of extremities, unspecified extremity

== ENCOUNTER → 2017-07-29 | Outpatient (CLI) | payer MEDICARE ==
[2017-07-29 12:18] LABS: INR 1.96
== END ==
LOC: M LAB 11:39
DX: Z79.01 Long term (current) use of anticoagulants (principal)
CPT/HCPCS: 85610

== ENCOUNTER → 2017-08-05 | Outpatient (REF) | payer MEDICARE ==
[2017-08-05 11:10] LABS: INR 1.56; PROTHROMBIN TIME 19.1 SECONDS (12.4-14.5)
== END ==
LOC: M LAB REF 10:44
DX: Z48.89 Encounter for other specified surgical aftercare (principal); Z79.01 Long term (current) use of anticoagulants
CPT/HCPCS: 85610

== ENCOUNTER → 2017-08-09 | Outpatient (REF) | payer MEDICARE ==
[2017-08-09 14:24] LABS: INR 2.28
[2017-08-09 14:41] LABS: ANION GAP 7 MEQ/L (8-16); BLOOD UREA NITROGEN 11 MG/DL (7-18); CALCIUM LEVEL 8.8 MG/DL (8.8-10.2); CARBON DIOXIDE LEVEL 29 MEQ/L (21-32); CHLORIDE LEVEL 102 MEQ/L (98-107); CREATININE FOR GFR 0.62 MG/DL (0.55-1.02); GLOMERULAR FILTRATION RATE > 60.0 (>45); GLUCOSE, FASTING 80 MG/DL (80-110); POTASSIUM SERUM 4.7 MEQ/L (3.5-5.1); SODIUM LEVEL 138 MEQ/L (136-145)
== END ==
LOC: M LAB REF 13:12
DX: M19.90 Unspecified osteoarthritis, unspecified site (principal); D64.9 Anemia, unspecified; Z79.01 Long term (current) use of anticoagulants
CPT/HCPCS: 80048

== ENCOUNTER → 2017-08-12 | Outpatient (REF) | payer MEDICARE ==
[2017-08-12 11:29] LABS: INR 2.74; PROTHROMBIN TIME 30.2 SECONDS (12.4-14.5)
[2017-08-12 11:51] LABS: ANION GAP 6 MEQ/L (8-16); BLOOD UREA NITROGEN 13 MG/DL (7-18); CALCIUM LEVEL 9.1 MG/DL (8.8-10.2); CARBON DIOXIDE LEVEL 28 MEQ/L (21-32); CHLORIDE LEVEL 104 MEQ/L (98-107); CREATININE FOR GFR 0.59 MG/DL (0.55-1.02); GLOMERULAR FILTRATION RATE > 60.0 (>45); GLUCOSE, FASTING 83 MG/DL (80-110); POTASSIUM SERUM 4.5 MEQ/L (3.5-5.1); SODIUM LEVEL 138 MEQ/L (136-145)
== END ==
LOC: M LAB REF 11:03
DX: S72.002D Fracture of unspecified part of neck of left femur, subsequent encounter for closed fracture with routine healing (principal); W18.30XD Fall on same level, unspecified, subsequent encounter; Y92.009 Unspecified place in unspecified non-institutional (private) residence as the place of occurrence of the external cause; Z79.01 Long term (current) use of anticoagulants
CPT/HCPCS: 80048

== ENCOUNTER → 2017-08-17 | Outpatient (REF) | payer MEDICARE ==
[2017-08-17 12:36] LABS: ANION GAP 7 MEQ/L (8-16); BLOOD UREA NITROGEN 9 MG/DL (7-18); CALCIUM LEVEL 9.1 MG/DL (8.8-10.2); CARBON DIOXIDE LEVEL 26 MEQ/L (21-32); CHLORIDE LEVEL 104 MEQ/L (98-107); CREATININE FOR GFR 0.72 MG/DL (0.55-1.02); GLOMERULAR FILTRATION RATE > 60.0 (>45); GLUCOSE, FASTING 116 MG/DL (80-110); SODIUM LEVEL 137 MEQ/L (136-145)
== END ==
LOC: M LAB REF 12:06
DX: Z79.01 Long term (current) use of anticoagulants (principal)
CPT/HCPCS: 80048

== ENCOUNTER → 2017-12-22 | Outpatient (REF) | payer MEDICARE ==
[2017-12-22 15:37] LABS: HEMATOCRIT 34.9 % (36.0-47.0); HEMOGLOBIN 11.9 g/dl (12.0-15.5); MEAN CORPUSCULAR HEMOGLOBIN 31.3 pg (27.0-33.0); MEAN CORPUSCULAR HGB CONC 34.1 g/dl (32.0-36.5); MEAN CORPUSCULAR VOLUME 91.8 fl (80.0-96.0); PLATELET COUNT, AUTOMATED 483 10^3/uL (150-450); WHITE BLOOD COUNT 8.4 10^3/uL (4.0-10.0)
[2017-12-22 16:08] LABS: TOTAL 25(OH) VITAMIN D 44.3 NG/ML (30.0-100.0)
[2017-12-22 16:17] LABS: ALBUMIN 3.7 GM/DL (3.2-5.2); ALBUMIN/GLOBULIN RATIO 0.93 (1.00-1.93); ALKALINE PHOSPHATASE 109 U/L (45-117); ALT/SGPT 21 U/L (12-78); ANION GAP 6 MEQ/L (8-16); AST/SGOT 19 U/L (7-37); BILIRUBIN,TOTAL 0.3 MG/DL (0.2-1.0); BLOOD UREA NITROGEN 14 MG/DL (7-18); CALCIUM LEVEL 9.4 MG/DL (8.8-10.2); CARBON DIOXIDE LEVEL 28 MEQ/L (21-32); CHLORIDE LEVEL 106 MEQ/L (98-107); CREATININE FOR GFR 0.82 MG/DL (0.55-1.30); GLOMERULAR FILTRATION RATE > 60.0 (>45); GLUCOSE, FASTING 89 MG/DL (70-100); POTASSIUM SERUM 4.8 MEQ/L (3.5-5.1); SODIUM LEVEL 140 MEQ/L (136-145); TOTAL PROTEIN 7.7 GM/DL (6.4-8.2)
== END ==
LOC: M SFHCPLAZ 14:02
DX: D64.9 Anemia, unspecified (principal); I10 Essential (primary) hypertension; Z87.898 Personal history of other specified conditions; Z86.39 Personal history of other endocrine, nutritional and metabolic disease
CPT/HCPCS: 80053

== ENCOUNTER → 2018-01-21 | Outpatient (REF) | payer MEDICARE, MEDICAID ==
[2018-01-21 15:19] LABS: BASO % 0.3 % (0.0-1.0); EOS # 0.2 10^3/uL (0.0-0.50); EOS % 2.3 % (0.0-3.0); HEMATOCRIT 35.1 % (36.0-47.0); HEMOGLOBIN 11.3 g/dl (12.0-15.5); IMMATURE GRANULOCYTE % 0.4 % (0-3.0); LYMPH # 1.2 10^3/uL (1.5-4.5); LYMPH % 15.7 % (24.0-44.0); MEAN CORPUSCULAR HEMOGLOBIN 30.3 pg (27.0-33.0); MEAN CORPUSCULAR HGB CONC 32.2 g/dl (32.0-36.5); MEAN CORPUSCULAR VOLUME 94.1 fl (80.0-96.0); MONO # 0.6 10^3/uL (0.0-0.8); MONO % 8.2 % (0.0-5.0); NEUTROPHILS # 5.5 10^3/uL (1.8-7.7); NEUTROPHILS % 73.1 % (36.0-66.0); PLATELET COUNT, AUTOMATED 387 10^3/uL (150-450); RED BLOOD COUNT 3.73 10^6/uL (4.00-5.40); RED CELL DISTRIBUTION WIDTH 14.3 % (11.5-14.5); WHITE BLOOD COUNT 7.5 10^3/uL (4.0-10.0)
[2018-01-21 15:37] LABS: ERYTHROCYTE SEDIMENTATION RATE 52 mm/hr (0-30)
== END ==
LOC: M LABDRAW1 13:04
DX: Z47.1 Aftercare following joint replacement surgery (principal); Z79.899 Other long term (current) drug therapy
CPT/HCPCS: 86140

== ENCOUNTER → 2018-02-01 | Outpatient (CLI) | payer MEDICARE, MEDICAID | LOC: M RAD 10:47 | DX: Z96.642 Presence of left artificial hip joint (principal) | CPT/HCPCS: 78315 ==

== ENCOUNTER → 2018-02-15 | Outpatient (CLI) | payer MEDICARE, MEDICAID ==
[2018-02-15 10:52] LABS: HEMATOCRIT 38.7 % (36.0-47.0)
[2018-02-15 11:15] LABS: CHOLESTEROL LEVEL 180 MG/DL (<200); CHOLESTEROL RISK RATIO 3.103 (<5); FERRITIN 90 NG/ML (8-252); HDL CHOLESTEROL 58 MG/DL (>40); IRON (FE) 60 UG/DL (50-170); LDL CHOLESTEROL 98.8 MG/DL (<100); NON-HDL-C 122 MG/DL; TOTAL IRON BINDING CAPACITY 273 UG/DL (250-450); TRIGLYCERIDES LEVEL 116 MG/DL (<150)
[2018-02-15 11:37] LABS: VITAMIN B12 LEVEL 728 PG/ML (247-911)
[2018-02-15 13:15] LABS: PRETREATED FOLATE FOR RBCFOL 17.6 NG/ML
[2018-02-16 17:28] LABS: TRANSFERRIN 208 mg/dL (200-370)
== END ==
LOC: M LAB 10:19
DX: D64.9 Anemia, unspecified (principal); Z13.220 Encounter for screening for lipoid disorders

== ENCOUNTER → 2018-02-15 | Outpatient (CLI) | payer MEDICARE, MEDICAID ==
[2018-02-15 12:50] LABS: BF MONONUCLEAR CELL % 71.1 % (0-0); BF POLYMORPHONUCLEAR CELL % 28.9 % (0-0); RBC BODY FLUID 4 10^3/uL (<2); WBC BODY FLUID 173 /uL (0-10)
[2018-02-15 12:51] LABS: APPEARANCE, BODY FLUID CLOUDY (CLEAR); BF DIFF IF INDICATED? YES (NO); SOURCE, BODY FLUID LT HIP; SYNOVIAL FLUID COLOR YELLOW (YELLOW)
== END ==
LOC: M RADPRO 10:40
DX: Z47.1 Aftercare following joint replacement surgery (principal); M25.452 Effusion, left hip; D64.9 Anemia, unspecified; Z13.220 Encounter for screening for lipoid disorders; Z79.899 Other long term (current) drug therapy
CPT/HCPCS: 20610

== ENCOUNTER → 2018-06-10 | Outpatient (REF) | payer MEDICARE, MEDICAID ==
[2018-06-10 16:47] LABS: HEMATOCRIT 31.6 % (36.0-47.0); HEMOGLOBIN 10.1 g/dl (12.0-15.5); MEAN CORPUSCULAR HEMOGLOBIN 31.2 pg (27.0-33.0); MEAN CORPUSCULAR VOLUME 97.5 fl (80.0-96.0); PLATELET COUNT, AUTOMATED 529 10^3/uL (150-450); RED BLOOD COUNT 3.24 10^6/uL (4.00-5.40); WHITE BLOOD COUNT 8.7 10^3/uL (4.0-10.0)
== END ==
LOC: M LAB REF 16:22
DX: D64.9 Anemia, unspecified (principal)
CPT/HCPCS: 85027

== ENCOUNTER 2018-10-12 10:11 | Emergency (ER) | payer MEDICARE, MEDICAID ==
[~2018-10-12] VITALS: Ht 160 cm; Wt 71.9 kg
[~2018-10-12 10:11] MED LIST changes: +COUM2.5T17 PO; -ESZO1TAB PO; +ESZO1TAB4 PO; +FOLI1TAB11 PO; -FOLI1TAB4 PO; -LOSA100T36 PO; +LOSA100T50 PO; +NAPR-50 PO; -NAPR500T PO
[2018-10-12] MEDS ORDERED: LOSA50TA88 (10:27)
[2018-10-12 12:00] VITALS: BP 106/65
== END 2018-10-12 12:13 | disposition left against medical advice (07) ==
LOC: M ED 10:11
DX: R11.0 Nausea (principal); Z53.21 Procedure and treatment not carried out due to patient leaving prior to being seen by health care provider

== ENCOUNTER → 2018-10-13 | Outpatient (REF) | payer MEDICARE, MEDICAID ==
[~2018-10-13] MED LIST changes: +LOSA50TA88
[2018-10-13 11:18] LABS: BLOOD UREA NITROGEN 12 MG/DL (7-18); CALCIUM LEVEL 9.3 MG/DL (8.8-10.2); CARBON DIOXIDE LEVEL 27 MEQ/L (21-32); CHLORIDE LEVEL 104 MEQ/L (98-107); CREATININE FOR GFR 0.73 MG/DL (0.55-1.30); GLOMERULAR FILTRATION RATE > 60.0 (>45); GLUCOSE, FASTING 89 MG/DL (70-100); SODIUM LEVEL 138 MEQ/L (136-145); TROPONIN I < 0.02 NG/ML (< 0.10)
== END ==
LOC: M SFHCPLAZ 09:32
PROVIDERS: ATTEND Family Medicine
DX: I10 Essential (primary) hypertension (principal)

== ENCOUNTER → 2018-11-08 | Outpatient (CLI) | payer MEDICARE, MEDICAID ==
[~2018-11-08] MED LIST changes: -NAPR-50 PO; +NAPR-837 PO; -SENN1TAB2 PO; +SENN1TAB40 PO
--- NOTE | 2018-11-08 16:31 | REPMRS ---
Patient History The patient states she has not had a clinical breast exam in over a year. Patient is postmenopausal, has history of large cell lymphoma (bone) cancer at age 48, and had previous chemotherapy at age 48. Family history of unknown cancer at age 50 or over in mother. Benign excisional biopsy of the right breast. Digital Woman Screen Mammo: November 08, 2018 - Exam #: [id number] Bilateral CC and MLO view(s) were taken. Technologist: Shawna Mata, Technologist Prior study comparison: November 27, 2015, bilateral digital mammo screening bilat, performed at [facility]. August 03, 2014, bilateral digital mammo screening bilat, performed at [facility]. February 13, 2013, digital woman screen mammo performed at [facility]. FINDINGS: There are scattered fibroglandular densities. There has been no change in the appearance of the mammogram from the prior studies. There is a mild amount of scattered fibroglandular density which is fairly symmetric. There is no interval development of dominant mass, architectural distortion, or clustered microcalcification suggestive of malignancy. 3-D tomosynthesis shows no additional findings. Assessment: BI-RADS/ACR category 1 mammogram. Negative Mammogram. Recommendation Routine screening mammogram of both breasts in 1 year (for women over age 40). This patient's Lifetime Breast Cancer RIsk is estimated at 3.9 %. This mammogram was interpreted with the aid of an FDA-approved computer-aided dectection system. Electronically Signed By: Bashir Harrison MD 11/08/18 [id number]
== END ==
LOC: M WHC 13:48
PROVIDERS: ATTEND Family Medicine
DX: Z12.31 Encounter for screening mammogram for malignant neoplasm of breast (principal); Z78.0 Asymptomatic menopausal state; Z85.830 Personal history of malignant neoplasm of bone; Z92.21 Personal history of antineoplastic chemotherapy; Z80.8 Family history of malignant neoplasm of other organs or systems; Z86.018 Personal history of other benign neoplasm

== ENCOUNTER 2019-01-30 08:02 | Emergency (ER) | payer MEDICAID, MEDICARE ==
[~2019-01-30] VITALS: Ht 165.1 cm; Wt 71.8 kg
[2019-01-30] MEDS ORDERED: AMLO5TAB6 PO (08:19)
[2019-01-30] MEDS ORDERED: ONDANSETRON 4MG/2ML VIAL (J2405) IV ONE (08:30)
[2019-01-30] MEDS: NS 1,000 ML IV SCH ×2 (08:33→09:07)
[2019-01-30 08:41] LABS: BASO % 0.4 % (0.0-1.0); EOS # 0.2 10^3/uL (0.0-0.50); EOS % 3.5 % (0.0-3.0); HEMATOCRIT 40.5 % (36.0-47.0); HEMOGLOBIN 13.7 g/dl (12.0-15.5); LYMPH # 1.8 10^3/uL (1.5-4.5); LYMPH % 26.6 % (24.0-44.0); MEAN CORPUSCULAR HEMOGLOBIN 32.8 pg (27.0-33.0); MEAN CORPUSCULAR HGB CONC 33.8 g/dl (32.0-36.5); MEAN CORPUSCULAR VOLUME 96.9 fl (80.0-96.0); MONO # 0.8 10^3/uL (0.0-0.8); MONO % 12.1 % (0.0-5.0); NEUTROPHILS # 3.9 10^3/uL (1.8-7.7); NEUTROPHILS % 57.1 % (36.0-66.0); PLATELET COUNT, AUTOMATED 292 10^3/uL (150-450); RED BLOOD COUNT 4.18 10^6/uL (4.00-5.40); WHITE BLOOD COUNT 6.8 10^3/uL (4.0-10.0)
[2019-01-30] MEDS ORDERED: MECLIZINE 25 MG TABLET PO ONE (08:45)
[2019-01-30 08:49] LABS: INR 1.01
--- NOTE | 2019-01-30 08:52 | REP ---
Clinical: Dizziness and headache. Comparison: 07/18/2017 . Findings: Age-related atrophy and microvascular ischemic changes are appreciated. Old lacunar infarct in the left basal ganglia/internal capsule. The ventricles and sulci are symmetric. Mckee-white differentiation is maintained. There is no evidence for acute intracranial hemorrhage, mass/mass effect, pathology or infarction. No extra-axial fluid collection. Calvarium is intact. Paranasal sinuses and mastoid air cells are clear. Impression: Age related atrophy and microvascular ischemic changes. No acute intracranial hemorrhage, infarction, or mass/mass effect. Electronically Signed by Sudhir Diehl MD 01/30/2019 08:44 A
--- NOTE | 2019-01-30 08:56 | REP ---
Clinical: Chest pain and dizziness . Comparison: 07/18/2017 . Technique: PA and lateral. Findings: The mediastinum and cardiac silhouette are normal. The lung salcedo are clear and without acute consolidation, effusion, or pneumothorax. The skeletal structures are intact and normal. Impression: 1. No acute cardiopulmonary process. Electronically Signed by Sudhir Diehl MD 01/30/2019 08:47 A
--- NOTE | 2019-01-30 09:12 | REP ---
Clinical: Left lower extremity edema . Technique: Mckee scale and color Doppler evaluation using linear high frequency transducer. Findings: Ultrasound examination of the left lower extremity deep venous structures from the common femoral vein to the popliteal vein demonstrates normal compressibility flow and wave patterns in response to respiration and augmentation. There is no evidence for deep venous thrombosis. Impression: No evidence for deep venous thrombosis. Electronically Signed by Sudhir Diehl MD 01/30/2019 09:04 A
[2019-01-30 09:17] LABS: BLOOD UREA NITROGEN 15 MG/DL (7-18); CARBON DIOXIDE LEVEL 26 MEQ/L (21-32); CHLORIDE LEVEL 106 MEQ/L (98-107); CREATININE FOR GFR 0.84 MG/DL (0.55-1.30); GLOMERULAR FILTRATION RATE > 60.0 (>39); GLUCOSE, FASTING 108 MG/DL (70-100); POTASSIUM SERUM 3.7 MEQ/L (3.5-5.1); SODIUM LEVEL 140 MEQ/L (136-145)
[2019-01-30 09:18] LABS: ALBUMIN 3.6 GM/DL (3.2-5.2); ALT/SGPT 21 U/L (12-78); BILIRUBIN,DIRECT 0.1 MG/DL (0.0-0.2); BILIRUBIN,TOTAL 0.3 MG/DL (0.2-1.0); CALCIUM LEVEL 8.9 MG/DL (8.8-10.2); CK-MB VALUE MASS 3.2 NG/ML (<3.6); CPK CREATINE PHOSPHOKINASE 92 U/L (26-192); FREE T4 0.89 NG/DL (0.76-1.46); MB/CK RELATIVE INDEX 3.48 (< OR =4); TOTAL PROTEIN 7.4 GM/DL (6.4-8.2); TROPONIN I < 0.02 NG/ML (< 0.10)
[2019-01-30] MEDS ORDERED: MECL-68 PO (10:17)
[2019-01-30 10:37] VITALS: BP 122/66
--- NOTE | 2019-01-30 21:55 | ECGEPIP ---
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
== END 2019-01-30 10:46 | disposition home or self-care (01) ==
LOC: EDBD 08:02 → M ED 08:02
DX: H81.49 Vertigo of central origin, unspecified ear (principal); I45.10 Unspecified right bundle-branch block; R22.42 Localized swelling, mass and lump, left lower limb; I10 Essential (primary) hypertension; D64.9 Anemia, unspecified; E55.9 Vitamin D deficiency, unspecified; G43.909 Migraine, unspecified, not intractable, without status migrainosus; G47.00 Insomnia, unspecified; F10.10 Alcohol abuse, uncomplicated; Z79.899 Other long term (current) drug therapy
CPT/HCPCS: 70450; 71046; 80048; 80076; 82550; 82553; 84439; 84443; 84484; 85025; 85610; 85730; 93005; 93041; 93971; 94760; 96361; 96374; 99285; J2405

== ENCOUNTER → 2019-02-06 | Outpatient (CLI) | payer MEDICARE ==
[~2019-02-06] MED LIST changes: +AMLO5TAB6 PO; +MECL-68 PO
[2019-02-06 13:54] LABS: BLOOD UREA NITROGEN 13 MG/DL (7-18); CALCIUM LEVEL 8.7 MG/DL (8.8-10.2); CARBON DIOXIDE LEVEL 27 MEQ/L (21-32); CHLORIDE LEVEL 100 MEQ/L (98-107); CREATININE FOR GFR 0.83 MG/DL (0.55-1.30); GLOMERULAR FILTRATION RATE > 60.0 (>39); GLUCOSE, FASTING 92 MG/DL (70-100); POTASSIUM SERUM 3.1 MEQ/L (3.5-5.1); SODIUM LEVEL 136 MEQ/L (136-145)
== END ==
LOC: M LAB 12:59
PROVIDERS: ATTEND Family Medicine
DX: I10 Essential (primary) hypertension (principal)

== ENCOUNTER → 2019-02-16 | Outpatient (CLI) | payer MEDICARE ==
[2019-02-16 13:56] LABS: BLOOD UREA NITROGEN 15 MG/DL (7-18); CALCIUM LEVEL 9.5 MG/DL (8.8-10.2); CARBON DIOXIDE LEVEL 29 MEQ/L (21-32); CHLORIDE LEVEL 104 MEQ/L (98-107); GLOMERULAR FILTRATION RATE > 60.0 (>39); GLUCOSE, FASTING 108 MG/DL (70-100); POTASSIUM SERUM 3.8 MEQ/L (3.5-5.1); SODIUM LEVEL 140 MEQ/L (136-145)
== END ==
LOC: M LAB 12:29
PROVIDERS: ATTEND Family Medicine
DX: I10 Essential (primary) hypertension (principal)

== ENCOUNTER → 2019-03-01 | Outpatient (CLI) | payer MEDICARE ==
--- NOTE | 2019-03-06 15:22 | DEXA ---
AP SPINE L1 - L4 1.486 2.4 4.0 LT FEMUR TOTAL Left hip replacement. LT NECK Left hip replacement. RT FEMUR TOTAL 0.801 -1.6 -0.2 RT NECK 0.749 -2.1 -0.4 TOTAL BODY TOTAL OTHER COMMENTS: Normal bone densitometry of the spine. There is low bone density of the right hip. FOLLOW-UP: Recommendation for the next bone density exam: 2 years. MERCEDES
== END ==
LOC: M WHC 15:22
PROVIDERS: ATTEND Family Medicine
DX: M81.0 Age-related osteoporosis without current pathological fracture (principal)

== ENCOUNTER → 2019-06-01 | Outpatient (REF) | payer MEDICARE ==
[~2019-06-01] MED LIST changes: +SENN-53 PO; -SENN1TAB40 PO
== END ==
LOC: M SFHCPLAZ 15:27
PROVIDERS: ATTEND Family Medicine
DX: Z51.81 Encounter for therapeutic drug level monitoring (principal)

== ENCOUNTER → 2019-10-10 | Outpatient (CLI) | payer MEDICARE ==
[~2019-10-10] MED LIST changes: -MECL-68 PO; +MECL1TAB31 PO
[2019-10-10 10:48] LABS: BLOOD UREA NITROGEN 15 MG/DL (7-18); CALCIUM LEVEL 9.3 MG/DL (8.8-10.2); CARBON DIOXIDE LEVEL 30 MEQ/L (21-32); CHLORIDE LEVEL 103 MEQ/L (98-107); CREATININE FOR GFR 0.77 MG/DL (0.55-1.30); GLOMERULAR FILTRATION RATE > 60.0 (>39); GLUCOSE, FASTING 107 MG/DL (70-100); POTASSIUM SERUM 3.2 MEQ/L (3.5-5.1); SODIUM LEVEL 139 MEQ/L (136-145)
--- NOTE | 2019-10-10 12:06 | REP ---
PA and lateral chest: Comparisons are: 01/30/2019 and 05/20/2014. The lung salcedo are clear. The cardiac size is normal. The sharon, mediastinum, and skeletal structures are unremarkable. There is moderate degenerative disc disease throughout the thoracic spine, There is a stable tiny 4 mm left upper lobe lung nodule, unchanged from both prior studies, likely a granuloma. Impression: Negative PA and lateral chest. There is no interval change. Electronically Signed by Brandyn Isaac MD 10/10/2019 11:57 A
== END ==
LOC: M LAB 09:39
PROVIDERS: ATTEND Family Medicine
DX: I10 Essential (primary) hypertension (principal); R05 Cough; M51.34 Other intervertebral disc degeneration, thoracic region; R91.1 Solitary pulmonary nodule

== ENCOUNTER → 2019-11-20 | Outpatient (REF) | payer MEDICARE ==
[2019-11-20 17:46] LABS: BLOOD UREA NITROGEN 14 MG/DL (7-18); CALCIUM LEVEL 8.8 MG/DL (8.8-10.2); CARBON DIOXIDE LEVEL 27 MEQ/L (21-32); CHLORIDE LEVEL 104 MEQ/L (98-107); CREATININE FOR GFR 0.78 MG/DL (0.55-1.30); GLOMERULAR FILTRATION RATE > 60.0 (>39); GLUCOSE, FASTING 97 MG/DL (70-100); POTASSIUM SERUM 3.5 MEQ/L (3.5-5.1); SODIUM LEVEL 138 MEQ/L (136-145)
== END ==
LOC: M SFHCPLAZ 14:50
PROVIDERS: ATTEND Family Medicine
DX: I10 Essential (primary) hypertension (principal); E87.6 Hypokalemia
CPT/HCPCS: 80048; G0463

== ENCOUNTER → 2020-08-12 | Outpatient (REF) | payer MEDICARE ==
[~2020-08-12] MED LIST changes: +AMLO1TAB24 PO; -AMLO5TAB6 PO; -COUM7.5T PO; +COUM7.5T6 PO
[2020-08-12 11:50] LABS: HEMATOCRIT 41.4 % (36.0-47.0); HEMOGLOBIN 13.3 g/dl (12.0-15.5); MEAN CORPUSCULAR HEMOGLOBIN 33.6 pg (27.0-33.0); MEAN CORPUSCULAR HGB CONC 32.1 g/dl (32.0-36.5); MEAN CORPUSCULAR VOLUME 104.5 fl (80.0-96.0); PLATELET COUNT, AUTOMATED 328 10^3/uL (150-450); RED BLOOD COUNT 3.96 10^6/uL (4.00-5.40); WHITE BLOOD COUNT 5.8 10^3/uL (4.0-10.0)
[2020-08-12 12:23] LABS: BLOOD UREA NITROGEN 14 MG/DL (7-18); CARBON DIOXIDE LEVEL 30 MEQ/L (21-32); CHLORIDE LEVEL 102 MEQ/L (98-107); CHOLESTEROL LEVEL 250 MG/DL (<200); CHOLESTEROL RISK RATIO 3.164 (<5); CREATININE FOR GFR 0.82 MG/DL (0.55-1.30); GLOMERULAR FILTRATION RATE > 60.0 (>39); GLUCOSE, FASTING 87 MG/DL (70-100); HDL CHOLESTEROL 79 MG/DL (>40); LDL CHOLESTEROL 135 MG/DL (<100); NON-HDL-C 171 MG/DL; POTASSIUM SERUM 4.3 MEQ/L (3.5-5.1); SODIUM LEVEL 139 MEQ/L (136-145); TRIGLYCERIDES LEVEL 182 MG/DL (<150)
[2020-08-12 13:19] LABS: TOTAL 25(OH) VITAMIN D 32.4 NG/ML (30.0-100.0)
== END ==
LOC: M PLALAB 08:34
PROVIDERS: ATTEND Family Medicine
DX: Z13.220 Encounter for screening for lipoid disorders (principal); I10 Essential (primary) hypertension; Z86.39 Personal history of other endocrine, nutritional and metabolic disease; Z85.79 Personal history of other malignant neoplasms of lymphoid, hematopoietic and related tissues; Z79.899 Other long term (current) drug therapy

== ENCOUNTER → 2020-08-15 | Outpatient (REF) | payer MEDICARE ==
[2020-08-15 13:40] LABS: HEMATOCRIT 42.4 % (36.0-47.0)
[2020-08-15 14:05] LABS: THYROID STIMULATING HORMONE 1.92 uIU/ML (0.358-3.740)
== END ==
LOC: M PLALAB 09:49
PROVIDERS: ATTEND Family Medicine
DX: D75.89 Other specified diseases of blood and blood-forming organs (principal); E07.9 Disorder of thyroid, unspecified

== ENCOUNTER → 2020-12-10 | Outpatient (REF) | payer MEDICARE ==
[2020-12-10 13:35] LABS: BASO % 0.4 % (0.0-1.0); EOS # 0.2 10^3/uL (0.0-0.5); EOS % 2.3 % (0.0-3.0); HEMATOCRIT 38.8 % (36.0-47.0); HEMOGLOBIN 12.8 g/dl (12.0-15.5); LYMPH # 1.4 10^3/uL (1.5-5.0); LYMPH % 17.3 % (24.0-44.0); MEAN CORPUSCULAR HEMOGLOBIN 33.7 pg (27.0-33.0); MEAN CORPUSCULAR VOLUME 102.1 fl (80.0-96.0); MONO # 0.9 10^3/uL (0.0-0.8); MONO % 10.5 % (2.0-8.0); NEUTROPHILS # 5.7 10^3/uL (1.5-8.5); NEUTROPHILS % 68.9 % (36.0-66.0); PLATELET COUNT, AUTOMATED 312 10^3/uL (150-450); WHITE BLOOD COUNT 8.3 10^3/uL (4.0-10.0)
[2020-12-10 14:25] LABS: THYROID STIMULATING HORMONE 1.69 uIU/ML (0.358-3.740)
== END ==
LOC: M SFHCPLAZ 11:40
PROVIDERS: ATTEND Family Medicine
DX: D75.89 Other specified diseases of blood and blood-forming organs (principal); R11.0 Nausea; K59.00 Constipation, unspecified
CPT/HCPCS: 36415; 83690; 84443; 85025; G0463

== ENCOUNTER → 2021-03-11 | Outpatient (CLI) | payer MEDICARE ==
[2021-03-11 12:55] LABS: HEMATOCRIT 43.7 % (36.0-47.0); HEMOGLOBIN 14.5 g/dl (12.0-15.5); MEAN CORPUSCULAR HEMOGLOBIN 33.6 pg (27.0-33.0); MEAN CORPUSCULAR HGB CONC 33.2 g/dl (32.0-36.5); MEAN CORPUSCULAR VOLUME 101.2 fl (80.0-96.0); PLATELET COUNT, AUTOMATED 311 10^3/uL (150-450); RED BLOOD COUNT 4.32 10^6/uL (4.00-5.40); WHITE BLOOD COUNT 7.3 10^3/uL (4.0-10.0)
[2021-03-11 13:06] LABS: ALBUMIN 3.9 GM/DL (3.2-5.2); ALT/SGPT 31 U/L (12-78); BILIRUBIN,TOTAL 0.4 MG/DL (0.2-1.0); BLOOD UREA NITROGEN 12 MG/DL (7-18); CALCIUM LEVEL 9.4 MG/DL (8.8-10.2); CARBON DIOXIDE LEVEL 28 MEQ/L (21-32); CHLORIDE LEVEL 105 MEQ/L (98-107); CREATININE FOR GFR 0.82 MG/DL (0.55-1.30); GLOMERULAR FILTRATION RATE > 60.0 (>39); GLUCOSE, FASTING 97 MG/DL (70-100); POTASSIUM SERUM 4.2 MEQ/L (3.5-5.1); SODIUM LEVEL 139 MEQ/L (136-145); TOTAL PROTEIN 7.4 GM/DL (6.4-8.2)
== END ==
LOC: M LAB 12:00
PROVIDERS: ATTEND Family Medicine
DX: I10 Essential (primary) hypertension (principal); D75.89 Other specified diseases of blood and blood-forming organs

== ENCOUNTER → 2021-05-08 | Outpatient (CLI) | payer MEDICARE ==
[~2021-05-08] MED LIST changes: +HYDR12.55 PO; +PANT20TA6 PO; +POTA1TAB23 PO; +THERTAB52 PO; +ULTR5TAB PO
== END ==
LOC: M LABSMTC 09:28
PROVIDERS: ATTEND Anesthesiology
DX: Z01.812 Encounter for preprocedural laboratory examination (principal); Z20.822 Contact with and (suspected) exposure to COVID-19

== ENCOUNTER 2021-05-13 11:18 | Day surgery (SDC) | payer MEDICARE ==
[~2021-05-13] VITALS: Ht 167.6 cm; Wt 68.0 kg
[~2021-05-13 11:18] MED LIST changes: +NS 1,000 ML IV ONE
[2021-05-13] MEDS ORDERED: LIDOCAINE 2% 100MG/5ML SDV (FOR ANES.) As Ordered ONE (11:35)
[2021-05-13] MEDS ORDERED: fentaNYL 100 MCG/2 ML INJECTION (J3010) As Ordered ONE (11:36)
[2021-05-13] MEDS ORDERED: propofoL 500 MG/50 ML VIAL As Ordered ONE (11:36)
--- NOTE | 2021-05-13 12:22 | ROOR ---
Patient Name: Munira Harper Procedure Date: 05/13/2021 11:59 AM Date of : 1950 Age: 70 Room: [facility] Gender: Female Note Status: Finalized Procedure: Upper GI endoscopy Indications: Epigastric abdominal pain Providers: Hernesto Pina MD Referring MD: Margo Luong MD Requesting Provider: Medicines: Monitored Anesthesia Care Complications: No immediate complications. Procedure: Pre-Anesthesia Assessment: - The heart rate, respiratory rate, oxygen saturations, blood pressure, adequacy of pulmonary ventilation, and response to care were monitored throughout the procedure. The Endoscope was introduced through the mouth, and advanced to the second part of duodenum. The upper GI endoscopy was accomplished without difficulty. The patient tolerated the procedure well. Findings: The examined esophagus was normal. A deformity was found in the gastric antrum/pylorus (the scope just passes this mildly stenotic area). Biopsies were taken with a cold forceps for histology. The examined duodenum was normal. Impression: - Normal esophagus. 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 Biopsied. - Normal examined duodenum. Recommendation: - I suspect there may be intermittent gastric retention due to mild stenosis of the pylorus. - Would rec: - Eat smaller, more frequent meals throughout the day. - Low fat diet. - Liquid/soft foods are tolerated better than solid foods. - Low fiber/well cooked vegetables are tolerated better than high fiber/fibrous foods/raw vegetables. - Avoid medications that inhibit gastric/intestinal motility such as narcotic medications. - Continue present medications. Procedure Code(s): --- Professional --- 69063, Esophagogastroduodenoscopy, flexible, transoral; with biopsy, single or multiple Diagnosis Code(s): --- Professional --- R10.13, Epigastric pain K31.89, Other diseases of stomach and duodenum CPT copyright 2019 [employer]. All rights reserved. The codes documented in this report are preliminary and upon control panel assembler review may be revised to meet current compliance requirements. Hernesto Pina MD Hernesto Pina MD 05/13/2021 12:21:26 PM Electronically signed by Hernesto Pina MD Number of Addenda: 0 Note Initiated On: 05/13/2021 11:59 AM Estimated Blood Loss: Estimated blood loss: none.
--- NOTE | 2021-05-13 12:38 | ROOR ---
Patient Name: Munira Harper Procedure Date: 05/13/2021 12:00 PM Date of : 1950 Age: 70 Room: [facility] Gender: Female Note Status: Finalized Procedure: Colonoscopy Indications: Irritable bowel syndrome with constipation, Change in bowel habits Providers: Hernesto Pina MD Referring MD: Margo Luong MD Requesting Provider: Medicines: Monitored Anesthesia Care Complications: No immediate complications. Procedure: Pre-Anesthesia Assessment: - The heart rate, respiratory rate, oxygen saturations, blood pressure, adequacy of pulmonary ventilation, and response to care were monitored throughout the procedure. The Colonoscope was introduced through the anus and advanced to 10 cm into the ileum. The colonoscopy was performed without difficulty. The patient tolerated the procedure well. The quality of the bowel preparation was good. Findings: The perianal and digital rectal examinations were normal. The terminal ileum appeared normal. The entire examined colon appeared normal on direct and retroflexion views. Impression: - Small internal hemorrhoids. - The examined portion of the ileum was normal. - The entire colon is normal on direct and retroflexion views. - No specimens collected. Recommendation: - Use fiber, for example Citrucel, Fibercon, Konsyl or Metamucil. - NEW: Use Linzess (linaclotide) 290 mcg PO daily. - (the script was sent to your pharmacy on file) - Ok to stop miralax once you start the Linzess. Procedure Code(s): --- Professional --- 76659, Colonoscopy, flexible; diagnostic, including collection of specimen(s) by brushing or washing, when performed (separate procedure) Diagnosis Code(s): --- Professional --- R19.4, Change in bowel habit K58.1, Irritable bowel syndrome with constipation CPT copyright 2019 [employer]. All rights reserved. The codes documented in this report are preliminary and upon supervisor sample review may be revised to meet current compliance requirements. Hernesto Pina MD Hernesto Pina MD 05/13/2021 12:37:55 PM Electronically signed by Hernesto Pina MD Number of Addenda: 0 Note Initiated On: 05/13/2021 12:00 PM Estimated Blood Loss: Estimated blood loss: none.
[2021-05-13 13:00] VITALS: BP 114/60
== END 2021-05-13 13:15 | disposition home or self-care (01) ==
LOC: M OPP 11:18
PROVIDERS: ATTEND Internal Medicine Gastroenterology
DX: K58.1 Irritable bowel syndrome with constipation (principal); R19.4 Change in bowel habit; K29.70 Gastritis, unspecified, without bleeding; R10.13 Epigastric pain; Z79.899 Other long term (current) drug therapy
CPT/HCPCS: 43239; 45378; 88305; 88342; J3010

== ENCOUNTER → 2021-05-27 | Outpatient (CLI) | payer MEDICARE ==
[~2021-05-27] MED LIST changes: -NS 1,000 ML IV ONE
--- NOTE | 2021-05-27 16:33 | REPMRS ---
Patient History The patient states she has not had a clinical breast exam in over a year. Family history of other cancer at age 50 or over in mother. Benign excisional biopsy of the right breast. Patient states no breast complaints today. Patient has signed MRS History Sheet. Digital Woman Screen Mammo: May 27, 2021 - Exam #: [id number] Bilateral CC and MLO view(s) were taken. Technologist: Shawna Mata, Technologist Prior study comparison: November 08, 2018, bilateral digital woman screen mammo performed at [facility]. November 27, 2015, bilateral digital mammo screening bilat, performed at [facility]. FINDINGS: There are scattered fibroglandular densities. Screening. Digital screening (2D) mammography was performed bilaterally in the CC and MLO projections. Additionally, breast tomosynthesis (3D mammography) was performed bilaterally in the CC and MLO projections. Todays exam was compared to the prior exam/exams. By history, the patient has no complaints of a palpable breast abnormality or other significant breast complaints. The Volpara volumetric breast density category is B, there are scattered areas of fibroglandular densities. The breasts are unchanged in size and shape. There are no noble-soft tissue densities or spiculated masses. There is no internal architectural distortion. There are no suspicious noble-calcific clusters. Skin thickening or nipple retraction is not present. IMPRESSION: BI-RADS Category 2- Benign Findings. There is no evidence of malignant alteration of the breasts. Followup examination recommended in one year. The lifetime Tyrer-Cuzick score is 3.4% This mammogram was read with the assistance of [employer],an FDA approved computer aided detection system for mammography. Negative x-ray reports should not delay surgical consultation if a dominant or clinically suspicious mass is present. Not all breast cancers can be identified by mammography. Therefore, we recommend that you continue to perform regular breast self-examination and physical examination and then promptly contact your physician of any concerns or changes. Adenosis and dense breasts may obscure an underlying neoplasm. No significant changes when compared with prior studies. Assessment: BI-RADS/ACR category 2 mammogram. Benign Findings. Recommendation Routine screening mammogram of both breasts in 1 year. Electronically Signed By: Ceasar Wilson MD 05/27/21 [id number]
== END ==
LOC: M WHC 14:04
PROVIDERS: ATTEND Family Medicine
DX: Z12.31 Encounter for screening mammogram for malignant neoplasm of breast (principal); Z80.9 Family history of malignant neoplasm, unspecified

== ENCOUNTER → 2021-09-30 | Outpatient (CLI) | payer MEDICARE ==
[~2021-09-30] MED LIST changes: +LOSA100T45 PO; -LOSA100T50 PO; +LOSA50TA28; -LOSA50TA88
== END ==
LOC: M RAD 14:34
PROVIDERS: ATTEND Internal Medicine Medical Oncology
DX: M79.662 Pain in left lower leg (principal); Z96.642 Presence of left artificial hip joint

== ENCOUNTER → 2021-10-01 | Outpatient (CLI) | payer MEDICARE ==
[2021-10-01 18:08] LABS: HEMATOCRIT 44.7 % (36.0-47.0); HEMOGLOBIN 14.9 g/dl (12.0-15.5); MEAN CORPUSCULAR HEMOGLOBIN 32.4 pg (27.0-33.0); MEAN CORPUSCULAR HGB CONC 33.3 g/dl (32.0-36.5); MEAN CORPUSCULAR VOLUME 97.2 fl (80.0-96.0); PLATELET COUNT, AUTOMATED 320 10^3/uL (150-450); WHITE BLOOD COUNT 6.5 10^3/uL (4.0-10.0)
[2021-10-01 18:21] LABS: INR 0.86; PROTHROMBIN TIME 12.1 SECONDS (12.7-14.5)
[2021-10-01 18:22] LABS: PARTIAL THROMBOPLASTIN TIME 31.2 SECONDS (25.9-37.0)
[2021-10-01 18:26] LABS: ALBUMIN 3.8 GM/DL (3.2-5.2); ALT/SGPT 165 U/L (12-78); BILIRUBIN,DIRECT 0.5 MG/DL (0.0-0.2); BILIRUBIN,TOTAL 1.1 MG/DL (0.2-1.0); FERRITIN 527 NG/ML (8-252); IRON (FE) 96 UG/DL (50-170); PERCENT SATURATION 30.1 % (13.2-45.0); TOTAL IRON BINDING CAPACITY 319 UG/DL (250-450); TOTAL PROTEIN 8.1 GM/DL (6.4-8.2)
[2021-10-01 18:43] LABS: HEPATITIS B SURFACE ANTIGEN NEGATIVE (NEGATIVE)
[2021-10-01 19:49] LABS: ATYPICAL LYMPH 3 % (0-5); EOSINOPHILS 2 % (0-3); LYMPHOCYTES 21 % (16-44); MONOCYTES 18 % (0-5); MYELOCYTES 1 % (0-0); NEUTROPHILS 55 % (28-66)
[2021-10-01 19:50] LABS: PLATELET ESTIMATE NORMAL (NORMAL)
== END ==
LOC: M PLALAB 13:23
PROVIDERS: ATTEND Family Medicine
DX: R74.01 Elevation of levels of liver transaminase levels (principal)
CPT/HCPCS: 36415; 80076; 82728; 83550; 85025; 85610; 85730; 86704; 87340; G0472

== ENCOUNTER → 2021-10-03 | Outpatient (CLI) | payer MEDICARE | LOC: M WHC 07:55 | PROVIDERS: ATTEND Family Medicine | DX: R79.89 Other specified abnormal findings of blood chemistry (principal); K80.20 Calculus of gallbladder without cholecystitis without obstruction; K82.8 Other specified diseases of gallbladder ==

== ENCOUNTER → 2021-10-06 | Outpatient (CLI) | payer MEDICARE ==
[2021-10-06 13:19] LABS: BASO % 0.4 % (0.0-1.0); EOS # 0.2 10^3/uL (0.0-0.5); EOS % 1.9 % (0.0-3.0); HEMATOCRIT 41.8 % (36.0-47.0); HEMOGLOBIN 13.7 g/dl (12.0-15.5); LYMPH # 1.4 10^3/uL (1.5-5.0); LYMPH % 16.6 % (24.0-44.0); MEAN CORPUSCULAR HEMOGLOBIN 32.9 pg (27.0-33.0); MEAN CORPUSCULAR HGB CONC 32.8 g/dl (32.0-36.5); MEAN CORPUSCULAR VOLUME 100.2 fl (80.0-96.0); MONO # 0.8 10^3/uL (0.0-0.8); MONO % 9.9 % (2.0-8.0); NEUTROPHILS # 5.9 10^3/uL (1.5-8.5); NEUTROPHILS % 70.8 % (36.0-66.0); PLATELET COUNT, AUTOMATED 445 10^3/uL (150-450); RED BLOOD COUNT 4.17 10^6/uL (4.00-5.40); WHITE BLOOD COUNT 8.3 10^3/uL (4.0-10.0)
[2021-10-06 13:57] LABS: ALBUMIN 3.3 GM/DL (3.2-5.2); ALT/SGPT 59 U/L (12-78); BILIRUBIN,TOTAL 0.4 MG/DL (0.2-1.0); BLOOD UREA NITROGEN 11 MG/DL (7-18); CALCIUM LEVEL 9.6 MG/DL (8.8-10.2); CARBON DIOXIDE LEVEL 27 MEQ/L (21-32); CHLORIDE LEVEL 107 MEQ/L (98-107); CREATININE FOR GFR 0.62 MG/DL (0.55-1.30); GLOMERULAR FILTRATION RATE > 60.0 (>39); GLUCOSE, FASTING 93 MG/DL (70-100); POTASSIUM SERUM 5.1 MEQ/L (3.5-5.1); SODIUM LEVEL 139 MEQ/L (136-145)
== END ==
LOC: M PLALAB 09:38
PROVIDERS: ATTEND Family Medicine
DX: K81.0 Acute cholecystitis (principal)

== ENCOUNTER 2021-10-20 11:09 | Emergency (ER) | payer MEDICARE ==
[~2021-10-20] VITALS: Ht 167.6 cm; Wt 69.0 kg
[2021-10-20 12:25] LABS: BASO % 0.3 % (0.0-1.0); EOS # 0.1 10^3/uL (0.0-0.5); HEMATOCRIT 43.1 % (36.0-47.0); HEMOGLOBIN 14.5 g/dl (12.0-15.5); LYMPH # 0.9 10^3/uL (1.5-5.0); MEAN CORPUSCULAR HEMOGLOBIN 32.3 pg (27.0-33.0); MEAN CORPUSCULAR HGB CONC 33.6 g/dl (32.0-36.5); MONO # 0.6 10^3/uL (0.0-0.8); NEUTROPHILS # 4.4 10^3/uL (1.5-8.5); NEUTROPHILS % 72.4 % (36.0-66.0); PLATELET COUNT, AUTOMATED 453 10^3/uL (150-450); RED BLOOD COUNT 4.49 10^6/uL (4.00-5.40); WHITE BLOOD COUNT 6.1 10^3/uL (4.0-10.0)
[2021-10-20 12:54] LABS: ALBUMIN 3.3 GM/DL (3.2-5.2); BILIRUBIN,DIRECT 0.2 MG/DL (0.0-0.2); BILIRUBIN,TOTAL 0.5 MG/DL (0.2-1.0); TOTAL PROTEIN 7.3 GM/DL (6.4-8.2)
[2021-10-20] MEDS ORDERED: ISOVUE-370 76% 100ML VIAL As Ordered ONE (14:38)
[2021-10-20] MEDS ORDERED: METR-265 PO (16:44)
[2021-10-20] MEDS ORDERED: CIPR-249 PO (16:44)
[2021-10-20] MEDS ORDERED: CIPROFLOXACIN 500MG TABLET PO ONE (16:45)
[2021-10-20] MEDS ORDERED: metroNIDAZOLE (FLAGYL) 500MG TABLET PO ONE (16:45)
[2021-10-20] MEDS ORDERED: ONDA4TAB6 PO (16:48)
[2021-10-20 17:12] VITALS: BP 131/81
== END 2021-10-20 17:17 | disposition home or self-care (01) ==
LOC: M ED 11:09
DX: K81.9 Cholecystitis, unspecified (principal); I10 Essential (primary) hypertension; G43.909 Migraine, unspecified, not intractable, without status migrainosus; Z79.899 Other long term (current) drug therapy
CPT/HCPCS: 74177; 80047; 80076; 83690; 85025; 99284; Q9967

== ENCOUNTER → 2021-11-03 | Outpatient (CLI) | payer MEDICARE ==
[~2021-11-03] MED LIST changes: +CIPR-249 PO; +METR-265 PO; +ONDA4TAB6 PO; +PROHANCE 279.3MG/ML 15ML VIAL As Ordered ONE
== END ==
LOC: M RAD 10:07
PROVIDERS: ATTEND Internal Medicine Medical Oncology
DX: R22.42 Localized swelling, mass and lump, left lower limb (principal); Z85.79 Personal history of other malignant neoplasms of lymphoid, hematopoietic and related tissues
CPT/HCPCS: 73720; A9576

== ENCOUNTER → 2021-11-21 | Outpatient (CLI) | payer MEDICARE ==
[~2021-11-21] MED LIST changes: -PROHANCE 279.3MG/ML 15ML VIAL As Ordered ONE
== END ==
LOC: M LABSMTC 11:20
PROVIDERS: ATTEND Anesthesiology
DX: Z01.812 Encounter for preprocedural laboratory examination (principal); Z20.822 Contact with and (suspected) exposure to COVID-19

== ENCOUNTER 2021-11-26 11:03 | Day surgery (SDC) | payer MEDICARE ==
[~2021-11-26] VITALS: Ht 167.6 cm; Wt 69.1 kg
[~2021-11-26 11:03] MED LIST changes: +AMPICILLIN SOD/SULBACTAM SOD 3 GM in D5W MINI-BAG PLUS 100 ML IV ONE; +CelecoXIB 400 MG CAP PO ONE; +LIDOCAINE 1% MDV 20ML VIAL SQ PRN; +LIDOCAINE 2% 100MG/5ML SDV (FOR ANES.) As Ordered ONE; +LR 1,000 ML IV ONE; +MIDAZOLAM INJ 2MG/2ML VIAL (J2250 PER 1MG) As Ordered ONE; +ROCURONIUM BROMIDE 50 MG/5 ML VIAL As Ordered ONE; +fentaNYL 250 MCG/5 ML INJECTION As Ordered ONE; +propofoL 200 MG/20 ML VIAL As Ordered ONE
[2021-11-26] MEDS ORDERED: LIDOCAINE 1% SDV 30ML VIAL As Ordered ONE (11:28)
[2021-11-26] MEDS ORDERED: BUPIVACAINE HCL 0.25% 30ML VIAL As Ordered ONE (11:29)
[2021-11-26] MEDS ORDERED: DESFLURANE 240 ML INHALANT As Ordered ONE (12:53)
[2021-11-26] MEDS ORDERED: ACETAMINOPHEN 1000MG 100ML IV BTL (OFIRMEV) (J0131 PER 10MG) As Ordered ONE (13:30)
[2021-11-26] MEDS ORDERED: SUGAMMADEX SODIUM 500 MG/5 ML VIAL (BRIDION) As Ordered ONE (13:30)
[2021-11-26] MEDS ORDERED: dexameTHASONE 4 MG/ML 1ML VIAL (J1100 PER 1MG) As Ordered ONE (13:30)
[2021-11-26] MEDS ORDERED: ONDANSETRON 4MG/2ML VIAL As Ordered ONE (13:30)
[2021-11-26] MEDS ORDERED: KETOROLAC 60MG 2ML VIAL As Ordered ONE (13:30)
[2021-11-26] MEDS ORDERED: ONDANSETRON 4MG/2ML VIAL IV PRN ×2 (14:50→14:55)
[2021-11-26] MEDS ORDERED: HYDROMORPHONE HCL 0.5 MG/ 0.5 ML SYRINGE (J1170 PER 1) IV PRN (14:50)
[2021-11-26] MEDS ORDERED: oxyCODONE 5MG TAB PO PRN (14:50)
[2021-11-26] MEDS ORDERED: NORCO, ANEXSIA 5/325MG TABLET (HYDROcodone/ACETAMINOPHEN) PO PRN ×2 (14:50)
[2021-11-26] MEDS ORDERED: fentaNYL 100 MCG/2 ML INJECTION IV PRN (14:50)
[2021-11-26] MEDS ORDERED: LR 1,000 ML IV SCH (14:50)
[2021-11-26] MEDS ORDERED: METOCLOPRAMIDE INJ 10MG/2ML VIAL (J2765 PER 1) As Ordered ONE (15:49)
[2021-11-26] MEDS ORDERED: METOCLOPRAMIDE INJ 10MG/2ML VIAL (J2765 PER 1) IV ONE (15:55)
[2021-11-26 17:05] VITALS: BP 129/67
[2021-11-26] MEDS ORDERED: KETOROLAC 30 MG/ML 1ML VIAL IV PRN (18:00)
== END 2021-11-26 17:05 | disposition home or self-care (01) ==
LOC: M SDC 11:03
PROVIDERS: ATTEND Surgery
DX: K80.10 Calculus of gallbladder with chronic cholecystitis without obstruction (principal); I10 Essential (primary) hypertension; Z92.21 Personal history of antineoplastic chemotherapy; Z87.891 Personal history of nicotine dependence; Z85.71 Personal history of Hodgkin lymphoma; R94.5 Abnormal results of liver function studies; Z79.899 Other long term (current) drug therapy; K21.9 Gastro-esophageal reflux disease without esophagitis; G43.909 Migraine, unspecified, not intractable, without status migrainosus
CPT/HCPCS: 47562; 88304; J0131; J0295; J1100; J1885; J2250; J2405; J2765; J3010

== ENCOUNTER → 2022-10-08 | Outpatient (CLI) | payer MEDICARE ==
[~2022-10-08] MED LIST changes: -AMPICILLIN SOD/SULBACTAM SOD 3 GM in D5W MINI-BAG PLUS 100 ML IV ONE; -CelecoXIB 400 MG CAP PO ONE; -LIDOCAINE 1% MDV 20ML VIAL SQ PRN; -LIDOCAINE 2% 100MG/5ML SDV (FOR ANES.) As Ordered ONE; -LR 1,000 ML IV ONE; -MIDAZOLAM INJ 2MG/2ML VIAL (J2250 PER 1MG) As Ordered ONE; -ROCURONIUM BROMIDE 50 MG/5 ML VIAL As Ordered ONE; -fentaNYL 250 MCG/5 ML INJECTION As Ordered ONE; -propofoL 200 MG/20 ML VIAL As Ordered ONE
== END ==
LOC: M RAD 13:30
PROVIDERS: ATTEND Physician Assistant
DX: L97.522 Non-pressure chronic ulcer of other part of left foot with fat layer exposed (principal); M79.604 Pain in right leg; M79.605 Pain in left leg

== ENCOUNTER → 2022-10-20 | Outpatient (CLI) | payer MEDICARE ==
[2022-10-20 13:38] LABS: BASO # 0.1 10^3/uL (0.0-0.2); BASO % 0.5 % (0.0-1.0); EOS # 0.2 10^3/uL (0.0-0.5); EOS % 1.5 % (0.0-3.0); HEMATOCRIT 44.2 % (36.0-47.0); HEMOGLOBIN 14.3 g/dl (12.0-15.5); LYMPH # 2.2 10^3/uL (1.5-5.0); LYMPH % 16.7 % (24.0-44.0); MEAN CORPUSCULAR HEMOGLOBIN 32.1 pg (27.0-33.0); MEAN CORPUSCULAR HGB CONC 32.4 g/dl (32.0-36.5); MEAN CORPUSCULAR VOLUME 99.3 fl (80.0-96.0); MONO # 1.3 10^3/uL (0.0-0.8); MONO % 9.8 % (2.0-8.0); NEUTROPHILS # 9.2 10^3/uL (1.5-8.5); PLATELET COUNT, AUTOMATED 577 10^3/uL (150-450); RED BLOOD COUNT 4.45 10^6/uL (4.00-5.40)
[2022-10-20 14:09] LABS: LIPASE 40 U/L (12-53)
[2022-10-20 14:10] LABS: AMYLASE 46 U/L (30-118)
[2022-10-20 14:29] LABS: ALBUMIN 3.2 G/DL (3.2-5.2); ALKALINE PHOSPHATASE 1113 U/L (46-116); ALT/SGPT 126 U/L (7.0-40); AST/SGOT 59 U/L (<34); BILIRUBIN,TOTAL 1.8 MG/DL (0.3-1.2); BLOOD UREA NITROGEN 15 MG/DL (9-23); CARBON DIOXIDE LEVEL 27 MMOL/L (20-31); CHLORIDE LEVEL 101 MMOL/L (98-107); CREATININE FOR GFR 0.74 MG/DL (0.55-1.30); GLOMERULAR FILTRATION RATE > 60.0 (>39); GLUCOSE, FASTING 100 MG/DL (74-106); SODIUM LEVEL 135 MMOL/L (136-145); THYROID STIMULATING HORMONE 2.135 uIU/ML (0.55-4.78); TOTAL PROTEIN 7.6 G/DL (5.7-8.2)
== END ==
LOC: M PLALAB 11:24
PROVIDERS: ATTEND Physician Assistant
DX: R10.10 Upper abdominal pain, unspecified (principal); Z79.899 Other long term (current) drug therapy

== ENCOUNTER → 2022-10-21 | Outpatient (CLI) | payer MEDICARE | LOC: M RAD 09:31 | PROVIDERS: ATTEND Physician Assistant | DX: R10.13 Epigastric pain (principal); R74.8 Abnormal levels of other serum enzymes ==

== ENCOUNTER → 2022-10-22 | Outpatient (REF) | payer MEDICARE ==
[2022-10-23 11:08] LABS: APPEARANCE, URINE HAZY (CLEAR); BACTERIA, URINE AUTO NEGATIVE (NEGATIVE); BILIRUBIN, URINE AUTO NEGATIVE (NEGATIVE); BLOOD, URINE BLOOD 1+ (NEGATIVE); COLOR, URINE YELLOW (YELLOW); GLUCOSE, URINE (UA) AUTO NEGATIVE (NEGATIVE); KETONE, URINE AUTO NEGATIVE (NEGATIVE); LEUKOCYTE ESTERASE, URINE AUTO TRACE (NEGATIVE); MUCUS, URINE SMALL (NEGATIVE); NITRITE, URINE AUTO NEGATIVE (NEGATIVE); PROTEIN, URINE AUTO NEGATIVE (NEGATIVE); RBC, URINE AUTO 1 /HPF (0-3); SPECIFIC GRAVITY URINE AUTO 1.015 (1.002-1.035); SQUAMOUS EPITHELIAL CELL UR AU 3 /HPF (0-6); UROBILINOGEN, URINE AUTO 0.2 mg/dL (0.0-2.0); WBC, URINE AUTO 3 /HPF (0-3)
== END ==
LOC: M SFHCPLAZ 10:09
PROVIDERS: ATTEND Physician Assistant
DX: R42 Dizziness and giddiness (principal); D72.829 Elevated white blood cell count, unspecified

== ENCOUNTER → 2022-10-26 | Outpatient (CLI) | payer MEDICARE ==
[2022-10-26 10:35] LABS: INR 1.03; PROTHROMBIN TIME 13.7 SECONDS (12.5-14.5)
[2022-10-26 10:36] LABS: PARTIAL THROMBOPLASTIN TIME 30.7 SECONDS (24.8-34.2)
[2022-10-26 10:46] LABS: ALBUMIN 2.8 G/DL (3.2-5.2); ALKALINE PHOSPHATASE 731 U/L (46-116); ALT/SGPT 39 U/L (7.0-40); AST/SGOT 28 U/L (<34); BILIRUBIN,TOTAL 0.9 MG/DL (0.3-1.2); BLOOD UREA NITROGEN 11 MG/DL (9-23); CALCIUM LEVEL 9.3 MG/DL (8.3-10.6); CARBON DIOXIDE LEVEL 28 MMOL/L (20-31); CHLORIDE LEVEL 100 MMOL/L (98-107); CREATININE FOR GFR 0.56 MG/DL (0.55-1.30); GLOMERULAR FILTRATION RATE > 60.0 (>39); GLUCOSE, FASTING 107 MG/DL (74-106); SODIUM LEVEL 135 MMOL/L (136-145); TOTAL PROTEIN 7.5 G/DL (5.7-8.2)
[2022-10-26 11:00] LABS: HEPATITIS B SURFACE ANTIGEN NEGATIVE (NEGATIVE)
[2022-10-26 11:21] LABS: HEPATITIS B CORE ANTIBODY IGM NEGATIVE (NEGATIVE); HEPATITIS C VIRUS ABY INDEX 0.2 INDEX (<0.8)
[2022-10-26 13:00] LABS: CA19-9 TUMOR MARKER,CARBOHYDRA 1821.1 U/ML (<35.0)
== END ==
LOC: M RAD 09:05
PROVIDERS: ATTEND Physician Assistant
DX: D72.829 Elevated white blood cell count, unspecified (principal); R74.8 Abnormal levels of other serum enzymes; R42 Dizziness and giddiness; Z90.49 Acquired absence of other specified parts of digestive tract; N28.1 Cyst of kidney, acquired; R59.0 Localized enlarged lymph nodes
CPT/HCPCS: 36415; 74181; 80053; 82105; 82172; 83010; 83516; 83883; 84080; 85610; 85730; 86038; 86255; 86301; 86705; 86709; 86803; 87086; 87340; G0472

== ENCOUNTER → 2022-10-27 | Outpatient (CLI) | payer MEDICARE ==
[~2022-10-27] MED LIST changes: +GASTROGRAFIN SOLUTION 30ML As Ordered ONE; +ISOVUE-370 76% 100ML VIAL As Ordered ONE
== END ==
LOC: M RAD 10:48
PROVIDERS: ATTEND Physician Assistant
DX: R59.0 Localized enlarged lymph nodes (principal); R59.1 Generalized enlarged lymph nodes
CPT/HCPCS: 74177; Q9963; Q9967

== ENCOUNTER → 2022-10-31 | Outpatient (CLI) | payer MEDICARE ==
[~2022-10-31] MED LIST changes: -GASTROGRAFIN SOLUTION 30ML As Ordered ONE; -ISOVUE-370 76% 100ML VIAL As Ordered ONE
[2022-10-31 11:39] LABS: BASO % 0.5 % (0.0-1.0); EOS # 0.4 10^3/uL (0.0-0.5); EOS % 5.3 % (0.0-3.0); HEMATOCRIT 37.6 % (36.0-47.0); LYMPH # 1.7 10^3/uL (1.5-5.0); MEAN CORPUSCULAR HEMOGLOBIN 31.2 pg (27.0-33.0); MEAN CORPUSCULAR HGB CONC 31.9 g/dl (32.0-36.5); MEAN CORPUSCULAR VOLUME 97.7 fl (80.0-96.0); MONO % 13.3 % (2.0-8.0); NEUTROPHILS # 4.3 10^3/uL (1.5-8.5); NEUTROPHILS % 57.8 % (36.0-66.0); PLATELET COUNT, AUTOMATED 690 10^3/uL (150-450); RED BLOOD COUNT 3.85 10^6/uL (4.00-5.40); WHITE BLOOD COUNT 7.4 10^3/uL (4.0-10.0)
[2022-10-31 12:06] LABS: ALBUMIN 2.8 G/DL (3.2-5.2); ALKALINE PHOSPHATASE 649 U/L (46-116); ALT/SGPT 34 U/L (7.0-40); AST/SGOT 35 U/L (<34); BILIRUBIN,TOTAL 0.6 MG/DL (0.3-1.2); BLOOD UREA NITROGEN 7 MG/DL (9-23); CALCIUM LEVEL 9.4 MG/DL (8.3-10.6); CARBON DIOXIDE LEVEL 25 MMOL/L (20-31); CHLORIDE LEVEL 106 MMOL/L (98-107); GLOMERULAR FILTRATION RATE > 60.0 (>39); GLUCOSE, FASTING 94 MG/DL (74-106); POTASSIUM SERUM 4.7 MMOL/L (3.5-5.1); SODIUM LEVEL 137 MMOL/L (136-145); TOTAL PROTEIN 6.8 G/DL (5.7-8.2)
[2022-10-31 12:55] LABS: CA19-9 TUMOR MARKER,CARBOHYDRA 1679.1 U/ML (<35.0)
== END ==
LOC: M LAB 10-30 10:52
PROVIDERS: ATTEND Physician Assistant
DX: K76.89 Other specified diseases of liver (principal); R59.1 Generalized enlarged lymph nodes; Z85.72 Personal history of non-Hodgkin lymphomas

== ENCOUNTER → 2022-11-18 | Outpatient (CLI) | payer MEDICARE ==
[~2022-11-18] MED LIST changes: +LIDOCAINE 1% MDV 20ML VIAL As Ordered ONE
[2022-11-18 13:30] VITALS: BP 157/78
== END ==
LOC: M IRPRO 10:40
PROVIDERS: ATTEND Physician Assistant
DX: K76.89 Other specified diseases of liver (principal); R59.1 Generalized enlarged lymph nodes; Z85.72 Personal history of non-Hodgkin lymphomas

== ENCOUNTER → 2022-11-23 | Outpatient (CLI) | payer MEDICARE ==
[~2022-11-23] MED LIST changes: -LIDOCAINE 1% MDV 20ML VIAL As Ordered ONE
== END ==
LOC: M PLARAD 14:52
PROVIDERS: ATTEND Physician Assistant
DX: C78.7 Secondary malignant neoplasm of liver and intrahepatic bile duct (principal); Z85.72 Personal history of non-Hodgkin lymphomas; D73.89 Other diseases of spleen; R91.1 Solitary pulmonary nodule; R59.0 Localized enlarged lymph nodes; C77.2 Secondary and unspecified malignant neoplasm of intra-abdominal lymph nodes
CPT/HCPCS: 78815; A9552

== ENCOUNTER → 2022-12-17 | Outpatient (CLI) | payer MEDICARE ==
[~2022-12-17] MED LIST changes: +ACET-683 PO; -LOSA100T45 PO; +LOSA100T46 PO; +MECL-86; +PROHANCE 279.3MG/ML 15ML VIAL As Ordered ONE
== END ==
LOC: M RAD 16:27
PROVIDERS: ATTEND Internal Medicine Medical Oncology
DX: C22.9 Malignant neoplasm of liver, not specified as primary or secondary (principal); R90.82 White matter disease, unspecified
CPT/HCPCS: 70553; A9576

== ENCOUNTER → 2022-12-19 | Outpatient (CLI) | payer MEDICARE ==
[~2022-12-19] MED LIST changes: -PROHANCE 279.3MG/ML 15ML VIAL As Ordered ONE
[2022-12-19 13:19] LABS: HEMATOCRIT 38.1 % (36.0-47.0); HEMOGLOBIN 12.5 g/dl (12.0-15.5); MEAN CORPUSCULAR HEMOGLOBIN 30.2 pg (27.0-33.0); MEAN CORPUSCULAR HGB CONC 32.8 g/dl (32.0-36.5); PLATELET COUNT, AUTOMATED 471 10^3/uL (150-450); RED BLOOD COUNT 4.14 10^6/uL (4.00-5.40); WHITE BLOOD COUNT 11.5 10^3/uL (4.0-10.0)
[2022-12-19 13:30] LABS: INR 0.98; PROTHROMBIN TIME 13.2 SECONDS (12.5-14.5)
[2022-12-19 13:31] LABS: PARTIAL THROMBOPLASTIN TIME 31.5 SECONDS (24.8-34.2)
== END ==
LOC: M LAB 12:43
PROVIDERS: ATTEND Internal Medicine Medical Oncology
DX: C78.7 Secondary malignant neoplasm of liver and intrahepatic bile duct (principal); Z85.72 Personal history of non-Hodgkin lymphomas

== ENCOUNTER → 2022-12-23 | Outpatient (CLI) | payer MEDICARE ==
[~2022-12-23] MED LIST changes: +ACETAMINOPHEN 325 MG TAB As Ordered ONE; +ACETAMINOPHEN TAB 650MG DOSE (2X325MG) PO ONE; +FAMO40TA3 PO; +HYDR-3713 PO; +LIDOCAINE 1% MDV 20ML VIAL As Ordered ONE; -MECL-86; +MECL-86 PO; +MIDAZOLAM INJ 2MG/2ML VIAL As Ordered ONE; +NS 1,000 ML IV SCH; +ceFAZolin 2 GM/D5W 50 ML IV BAG As Ordered ONE; +ceFAZolin SOD 2 GM in IV 1 EA IV ONE; +diphenhydrAMINE 50MG/ML VIAL As Ordered ONE; +fentaNYL 100 MCG/2 ML INJECTION As Ordered ONE
[2022-12-23 16:45] VITALS: BP 154/97
== END ==
LOC: M IRPRO 12:29
PROVIDERS: ATTEND Internal Medicine Medical Oncology
DX: C78.7 Secondary malignant neoplasm of liver and intrahepatic bile duct (principal)
CPT/HCPCS: 36561; 99152; 99153; C1769; C1788; C1894; J0690; J1200; J2250; J3010

== ENCOUNTER → 2022-12-24 | Outpatient (CLI) | payer MEDICARE ==
[~2022-12-24] VITALS: Ht 167.6 cm; Wt 67.4 kg
[~2022-12-24] MED LIST changes: -ACETAMINOPHEN 325 MG TAB As Ordered ONE; -ACETAMINOPHEN TAB 650MG DOSE (2X325MG) PO ONE; +LIDO1CRE42 TOP; -LIDOCAINE 1% MDV 20ML VIAL As Ordered ONE; -MIDAZOLAM INJ 2MG/2ML VIAL As Ordered ONE; -NS 1,000 ML IV SCH; +ONDA8TAB8 PO; +PROC10TA5 PO; -ceFAZolin 2 GM/D5W 50 ML IV BAG As Ordered ONE; -ceFAZolin SOD 2 GM in IV 1 EA IV ONE; -diphenhydrAMINE 50MG/ML VIAL As Ordered ONE; -fentaNYL 100 MCG/2 ML INJECTION As Ordered ONE
[2022-12-24 10:36] VITALS: BP 123/84
== END ==
LOC: M PAL 10:32
PROVIDERS: ATTEND Nurse Practitioner Adult Health
DX: C78.89 Secondary malignant neoplasm of other digestive organs (principal); Z85.72 Personal history of non-Hodgkin lymphomas; Z51.5 Encounter for palliative care; G89.3 Neoplasm related pain (acute) (chronic); Z79.1 Long term (current) use of non-steroidal anti-inflammatories (NSAID); Z79.891 Long term (current) use of opiate analgesic; R63.0 Anorexia; R53.83 Other fatigue; R45.7 State of emotional shock and stress, unspecified; Z80.49 Family history of malignant neoplasm of other genital organs; Z79.899 Other long term (current) drug therapy; Z88.5 Allergy status to narcotic agent

== ENCOUNTER 2023-01-13 14:05 | Inpatient (IN) | payer MEDICARE ==
[~2023-01-13] VITALS: Ht 162.6 cm; Wt 70.1 kg
[~2023-01-13 14:05] MED LIST changes: +GLUCMIS7 XX; +LANCMIS33 TOP; +PHAR1TES VI
[2023-01-13] MEDS ORDERED: PANT40TA29 PO (14:20)
[2023-01-13] MEDS ORDERED: MAG SULF 1GM/100ML (MAG RUN) 1 GM in IV 1 EA IV ONE (14:25)
[2023-01-13 15:18] LABS: RSV AMPLIFICATION NEGATIVE (NEGATIVE)
[2023-01-13] MEDS ORDERED: FIDAXOMICIN 200 MG TAB (DIFICID) PO ONE (15:25)
[2023-01-13] MEDS ORDERED: NS 1,000 ML IV ONE (15:25)
[2023-01-13] MEDS ORDERED: PANTOPRAZOLE 40MG VIAL IV SCH (17:00)
[2023-01-13] MEDS ORDERED: LIDO1CRE42 TOP (17:10)
[2023-01-13] MEDS ORDERED: IBUP200C25 PO (17:10)
[2023-01-13] MEDS ORDERED: PROC10TA5 PO (17:10)
[2023-01-13] MEDS ORDERED: HYDR-3713 PO (17:10)
[2023-01-13] MEDS ORDERED: ONDA8TAB8 PO (17:10)
[2023-01-13] MEDS ORDERED: HOME MED LIST COMPLETE! XX SCH (17:15)
[2023-01-13] MEDS: NS 1,000 ML IV SCH (17:36)
[2023-01-13 18:32] LABS: HEPATITIS B SURFACE ANTIGEN NEGATIVE (NEGATIVE)
[2023-01-13 18:54] LABS: HEPATITIS B CORE ANTIBODY IGM NEGATIVE (NEGATIVE); HEPATITIS C VIRUS ABY INDEX 0.1 INDEX (<0.8)
[2023-01-13 20:00] VITALS: BP 118/66; TEMP 98.2; O2SAT 97
[2023-01-13] MEDS ORDERED: FIDAXOMICIN 200 MG TAB (DIFICID) PO SCH (21:00)
[2023-01-13] MEDS: PANTOPRAZOLE 40MG VIAL IV SCH (22:43)
[2023-01-13] MEDS: FILGRASTIM 300MCG 0.5ML SYRINGE **SC ADMINISTRATION ONLY SC SCH (22:44)
[2023-01-13] MEDS: ACETAMINOPHEN TAB 650MG DOSE (2X325MG) PO PRN (22:44)
[2023-01-14] VITALS (8 sets, daily range): BP systolic 96–121; BP diastolic 53–82; TEMP 97.6–98.7; O2SAT 96–99
[2023-01-14] MEDS: NS 1,000 ML IV SCH ×3 (04:49→12:30)
[2023-01-14 06:02] LABS: HEMATOCRIT 27.5 % (36.0-47.0); MEAN CORPUSCULAR HEMOGLOBIN 29.5 pg (27.0-33.0); MEAN CORPUSCULAR HGB CONC 33.1 g/dl (32.0-36.5); MEAN CORPUSCULAR VOLUME 89.3 fl (80.0-96.0); PLATELET COUNT, AUTOMATED 104 10^3/uL (150-450); RED BLOOD COUNT 3.08 10^6/uL (4.00-5.40); WHITE BLOOD COUNT 4.7 10^3/uL (4.0-10.0)
[2023-01-14 06:11] LABS: HEMOGLOBIN 9.1 g/dl (12.0-15.5)
[2023-01-14 06:31] LABS: ALBUMIN 2.1 G/DL (3.2-5.2); ALKALINE PHOSPHATASE 398 U/L (46-116); ALT/SGPT 60 U/L (7.0-40); AST/SGOT 35 U/L (<34); BILIRUBIN,TOTAL 0.7 MG/DL (0.3-1.2); BLOOD UREA NITROGEN 8 MG/DL (9-23); CALCIUM LEVEL 8.2 MG/DL (8.3-10.6); CARBON DIOXIDE LEVEL 23 MMOL/L (20-31); CHLORIDE LEVEL 108 MMOL/L (98-107); CREATININE FOR GFR 0.64 MG/DL (0.55-1.30); GLOMERULAR FILTRATION RATE > 60.0 (>39); GLUCOSE, FASTING 73 MG/DL (74-106); MAGNESIUM LEVEL 1.7 MG/DL (1.8-2.4); POTASSIUM SERUM 3.5 MMOL/L (3.5-5.1); SODIUM LEVEL 137 MMOL/L (136-145); TOTAL PROTEIN 4.9 G/DL (5.7-8.2)
[2023-01-14] MEDS ORDERED: MAG SULF 1GM/100ML (MAG RUN) 1 GM in IV 1 EA IV ONE (07:05)
[2023-01-14 07:17] LABS: ATYPICAL LYMPH 8 % (0-5); BASOPHILS 1 % (0-1); EOSINOPHILS 2 % (0-3); LYMPHOCYTES 10 % (16-44); MONOCYTES 8 % (0-5); NEUTROPHILS 66 % (28-66); PLATELET ESTIMATE DECREASED (NORMAL)
[2023-01-14] MEDS: FILGRASTIM 300MCG 0.5ML SYRINGE **SC ADMINISTRATION ONLY SC SCH (08:37)
[2023-01-14] MEDS: PANTOPRAZOLE 40MG VIAL IV SCH ×2 (08:37→20:41)
[2023-01-14] MEDS: FIDAXOMICIN 200 MG TAB (DIFICID) PO SCH ×2 (08:38→20:40)
[2023-01-14] MEDS: FAMOTIDINE 20 MG TAB PO SCH (08:38)
[2023-01-14] MEDS: ENOXAPARIN 40MG/0.4ML SYRINGE (J1650 PER 10MG) SC SCH (08:38)
[2023-01-14] MEDS: MECLIZINE 25 MG TABLET PO SCH (08:38)
[2023-01-14] MEDS ORDERED: POTASSIUM CHLORIDE 10MEQ SR TABLET PO ONE (09:45)
[2023-01-14] MEDS: ACETAMINOPHEN TAB 650MG DOSE (2X325MG) PO PRN (20:40)
[2023-01-15 03:29] VITALS: BP 115/62; TEMP 97.6; O2SAT 98
[2023-01-15 04:12] LABS: HEMATOCRIT 25.1 % (36.0-47.0); HEMOGLOBIN 8.5 g/dl (12.0-15.5); MEAN CORPUSCULAR HEMOGLOBIN 29.8 pg (27.0-33.0); MEAN CORPUSCULAR HGB CONC 33.9 g/dl (32.0-36.5); MEAN CORPUSCULAR VOLUME 88.1 fl (80.0-96.0); PLATELET COUNT, AUTOMATED 105 10^3/uL (150-450); RED BLOOD COUNT 2.85 10^6/uL (4.00-5.40); WHITE BLOOD COUNT 5.7 10^3/uL (4.0-10.0)
[2023-01-15 04:33] LABS: ALKALINE PHOSPHATASE 584 U/L (46-116); ALT/SGPT 65 U/L (7.0-40); AST/SGOT 45 U/L (<34); BILIRUBIN,TOTAL 0.6 MG/DL (0.3-1.2); BLOOD UREA NITROGEN < 5 MG/DL (9-23); CARBON DIOXIDE LEVEL 22 MMOL/L (20-31); CHLORIDE LEVEL 109 MMOL/L (98-107); CREATININE FOR GFR 0.61 MG/DL (0.55-1.30); GLOMERULAR FILTRATION RATE > 60.0 (>39); GLUCOSE, FASTING 75 MG/DL (74-106); MAGNESIUM LEVEL 1.6 MG/DL (1.8-2.4); POTASSIUM SERUM 3.5 MMOL/L (3.5-5.1); SODIUM LEVEL 138 MMOL/L (136-145); TOTAL PROTEIN 4.7 G/DL (5.7-8.2)
[2023-01-15 04:35] LABS: ATYPICAL LYMPH 1 % (0-5); EOSINOPHILS 5 % (0-3); LYMPHOCYTES 26 % (16-44); METAMYELOCYTES 3 % (0-0); MONOCYTES 11 % (0-5); NEUTROPHILS 45 % (28-66)
[2023-01-15 04:36] LABS: PLATELET ESTIMATE NORMAL (NORMAL); POLYCHROMASIA 1+
[2023-01-15] MEDS ORDERED: POTASSIUM CHLORIDE 10MEQ SR TABLET PO ONE (07:00)
[2023-01-15 08:21] VITALS: BP 108/58; TEMP 98.7; O2SAT 99
[2023-01-15] MEDS: PANTOPRAZOLE 40MG VIAL IV SCH (09:05)
[2023-01-15] MEDS: ENOXAPARIN 40MG/0.4ML SYRINGE (J1650 PER 10MG) SC SCH (09:05)
[2023-01-15] MEDS: FIDAXOMICIN 200 MG TAB (DIFICID) PO SCH (09:05)
[2023-01-15] MEDS: FAMOTIDINE 20 MG TAB PO SCH (09:05)
[2023-01-15] MEDS: MAG SULF 1GM/100ML (MAG RUN) 1 GM in IV 1 EA IV SCH ×2 (09:05→10:11)
[2023-01-15] MEDS: MECLIZINE 25 MG TABLET PO SCH (09:06)
[2023-01-15] MEDS ORDERED: FIDA200TA PO (11:00)
[2023-01-15] MEDS ORDERED: POTA-151 PO (11:00)
[2023-01-15] MEDS ORDERED: MAGN400T2 PO (11:00)
[2023-01-15] MEDS ORDERED: MAGICMW SSP (12:03)
== END 2023-01-15 13:14 | disposition home or self-care (01) | DRG 372 ==
LOC: M ED 14:05 → M ED INP 16:03 → M PCU 20:30
PROVIDERS: ADMIT Internal Medicine; ATTEND Internal Medicine
DX: A04.72 Enterocolitis due to Clostridium difficile, not specified as recurrent (principal); C25.9 Malignant neoplasm of pancreas, unspecified; I10 Essential (primary) hypertension; R19.7 Diarrhea, unspecified; I95.1 Orthostatic hypotension; R74.01 Elevation of levels of liver transaminase levels; E83.42 Hypomagnesemia; D72.819 Decreased white blood cell count, unspecified; K21.9 Gastro-esophageal reflux disease without esophagitis; Z20.822 Contact with and (suspected) exposure to COVID-19; Z92.21 Personal history of antineoplastic chemotherapy; Z79.899 Other long term (current) drug therapy; Z96.642 Presence of left artificial hip joint; Z90.49 Acquired absence of other specified parts of digestive tract; Z88.5 Allergy status to narcotic agent; E87.6 Hypokalemia

== ENCOUNTER 2023-01-15 13:32 | Outpatient (CLI) | payer MEDICARE ==
[~2023-01-15] VITALS: Ht 162.6 cm; Wt 70.0 kg
[~2023-01-15 13:32] MED LIST changes: +FIDA200TA PO; +IBUP200C25 PO; +MAGICMW SSP; +MAGN400T2 PO; +PANT40TA29 PO; +POTA-151 PO; +SODIUM CHLORIDE 0.9% INJ 10 ML SYR IV PRN; +SODIUM CHLORIDE 0.9% INJ 10 ML SYR IV SCH
[2023-01-15 13:40] VITALS: BP 98/48; O2SAT 90
[2023-01-15] MEDS ORDERED: BEZLOTOXUMAB 700 MG in NS 100 ML IV ONE (14:00)
[2023-01-15 15:25] VITALS: BP 140/64; O2SAT 92
== END 2023-01-15 15:30 ==
LOC: M INFU 13:32
PROVIDERS: ATTEND Internal Medicine
DX: A04.72 Enterocolitis due to Clostridium difficile, not specified as recurrent (principal); Z88.5 Allergy status to narcotic agent
CPT/HCPCS: 96365; J0565

== ENCOUNTER → 2023-01-19 | Outpatient (CLI) | payer MEDICARE ==
[~2023-01-19] MED LIST changes: +MIRT1TAB PO; -SODIUM CHLORIDE 0.9% INJ 10 ML SYR IV PRN; -SODIUM CHLORIDE 0.9% INJ 10 ML SYR IV SCH
== END ==
LOC: M RAD 16:21
PROVIDERS: ATTEND Nurse Practitioner
DX: Z85.72 Personal history of non-Hodgkin lymphomas (principal)

== ENCOUNTER → 2023-01-21 | Outpatient (CLI) | payer MEDICARE ==
[~2023-01-21] VITALS: Ht 167.6 cm; Wt 65.2 kg
[~2023-01-21] MED LIST changes: -LIDO1CRE42 TOP; +LIDO30CR18 TOP
[2023-01-21 08:14] VITALS: BP 107/71; TEMP 97.3; O2SAT 96
== END ==
LOC: M PAL 08:07
PROVIDERS: ATTEND Nurse Practitioner Adult Health
DX: C78.89 Secondary malignant neoplasm of other digestive organs (principal); Z85.72 Personal history of non-Hodgkin lymphomas; G89.3 Neoplasm related pain (acute) (chronic); Z51.5 Encounter for palliative care; R63.0 Anorexia; K59.00 Constipation, unspecified; R53.83 Other fatigue; Z80.49 Family history of malignant neoplasm of other genital organs; Z79.899 Other long term (current) drug therapy; Z88.5 Allergy status to narcotic agent

== ENCOUNTER → 2023-02-23 | Outpatient (CLI) | payer MEDICARE ==
[~2023-02-23] VITALS: Ht 170.2 cm; Wt 68.2 kg
[2023-02-23 09:41] VITALS: BP 148/86; TEMP 96.3; O2SAT 99
== END ==
LOC: M PAL 09:32
PROVIDERS: ATTEND Nurse Practitioner Adult Health
DX: C78.89 Secondary malignant neoplasm of other digestive organs (principal); Z85.72 Personal history of non-Hodgkin lymphomas; Z51.5 Encounter for palliative care; G89.3 Neoplasm related pain (acute) (chronic); Z79.1 Long term (current) use of non-steroidal anti-inflammatories (NSAID); Z79.891 Long term (current) use of opiate analgesic; R63.0 Anorexia; R53.83 Other fatigue; K59.00 Constipation, unspecified; R45.7 State of emotional shock and stress, unspecified; Z92.21 Personal history of antineoplastic chemotherapy; Z80.49 Family history of malignant neoplasm of other genital organs; Z79.899 Other long term (current) drug therapy; Z88.6 Allergy status to analgesic agent; M25.551 Pain in right hip; R07.89 Other chest pain

== ENCOUNTER → 2023-02-24 | Outpatient (CLI) | payer MEDICARE | LOC: M WUC 10:27 | PROVIDERS: ATTEND Physician Assistant | DX: M25.571 Pain in right ankle and joints of right foot (principal) ==

== ENCOUNTER 2023-03-12 11:31 | Inpatient (IN) | payer MEDICARE, OTHER ==
[~2023-03-12] VITALS: Ht 157.5 cm; Wt 70.6 kg
[~2023-03-12 11:31] MED LIST changes: -FAMO1TAB11 PO; -GASTROGRAFIN SOLUTION 30ML As Ordered ONE; -ISOVUE-370 76% 100ML VIAL As Ordered ONE; -POTA-165 PO
[2023-03-12] MEDS ORDERED: SODIUM CHLORIDE 0.9% INJ 10 ML SYR IV PRN (13:00)
[2023-03-12] MEDS ORDERED: AZITHROMYCIN 250MG TABLET PO STA (13:08)
[2023-03-12] MEDS ORDERED: FIDAXOMICIN 200 MG TAB (DIFICID) PO STA (13:08)
[2023-03-12] MEDS ORDERED: NYSTATIN 500,000U/5ML SUSP UDC SS STA (13:10)
[2023-03-12 13:37] LABS: HEMOGLOBIN 9.3 g/dl (12.0-15.5); MEAN CORPUSCULAR HEMOGLOBIN 30.9 pg (27.0-33.0); MEAN CORPUSCULAR HGB CONC 33.2 g/dl (32.0-36.5); RED BLOOD COUNT 3.01 10^6/uL (4.00-5.40); WHITE BLOOD COUNT 8.3 10^3/uL (4.0-10.0)
[2023-03-12 14:00] LABS: PLATELET COUNT, AUTOMATED 145 10^3/uL (150-450)
[2023-03-12 14:05] LABS: ATYPICAL LYMPH 17 % (0-5); LYMPHOCYTES 7 % (16-44); MONOCYTES 21 % (0-5); NEUTROPHILS 49 % (28-66)
[2023-03-12 14:06] LABS: PLATELET ESTIMATE DECREASED (NORMAL)
[2023-03-12 14:07] LABS: POLYCHROMASIA 1+
[2023-03-12 14:13] LABS: RSV AMPLIFICATION NEGATIVE (NEGATIVE)
[2023-03-12 14:15] LABS: LIPASE 14 U/L (12-53)
[2023-03-12 14:22] LABS: ALKALINE PHOSPHATASE 377 U/L (46-116); ALT/SGPT 27 U/L (7.0-40); AST/SGOT 25 U/L (<34); BILIRUBIN,DIRECT 0.6 MG/DL (<0.4); BLOOD UREA NITROGEN 7 MG/DL (9-23); CALCIUM LEVEL 7.7 MG/DL (8.3-10.6); CARBON DIOXIDE LEVEL 22 MMOL/L (20-31); CHLORIDE LEVEL 104 MMOL/L (98-107); CREATININE FOR GFR 0.55 MG/DL (0.55-1.30); GLOMERULAR FILTRATION RATE > 60.0 (>39); GLUCOSE, FASTING 71 MG/DL (74-106); MAGNESIUM LEVEL 1.9 MG/DL (1.8-2.4); POTASSIUM SERUM 3.3 MMOL/L (3.5-5.1); SODIUM LEVEL 135 MMOL/L (136-145); TOTAL PROTEIN 5.4 G/DL (5.7-8.2)
[2023-03-12] MEDS ORDERED: MED REC IN PROGRESS XX SCH (15:15)
[2023-03-12] MEDS ORDERED: POTASSIUM CHLORIDE 10% LIQ 20MEQ/15ML UDC PO ONE (15:55)
[2023-03-12] MEDS: NS 1,000 ML IV SCH (16:51)
[2023-03-12 17:02] LABS: PROCALCITONIN 0.35 ng/ml
[2023-03-12] MEDS: NYSTATIN 500,000U/5ML SUSP UDC SS SCH ×3 (17:11→21:54)
[2023-03-12] MEDS ORDERED: RAMELTEON 8 MG TAB (ROZEREM) PO PRN (17:45)
[2023-03-12] MEDS ORDERED: POTA-165 PO (20:07)
[2023-03-12] MEDS ORDERED: MAGN400T2 PO (20:09)
[2023-03-12] MEDS ORDERED: FAMO1TAB11 PO (20:09)
[2023-03-12] MEDS ORDERED: HOME MED LIST COMPLETE! XX SCH (20:10)
[2023-03-12 21:34] VITALS: BP 94/53; TEMP 97.3; O2SAT 100
[2023-03-12] MEDS: HEPARIN SOD (PORCINE) 5000UNITS/ML 1ML VIAL/SYRINGE SC SCH (21:54)
[2023-03-12] MEDS: ACETAMINOPHEN TAB 650MG DOSE (2X325MG) PO PRN (21:54)
[2023-03-12] MEDS: FIDAXOMICIN 200 MG TAB (DIFICID) PO SCH (22:32)
[2023-03-12 23:58] VITALS: BP 90/58; TEMP 96.7; O2SAT 96
[2023-03-13] VITALS (8 sets, daily range): BP systolic 92–144; BP diastolic 58–66; TEMP 96–98.3; O2SAT 94–100
[2023-03-13] MEDS: NS 1,000 ML IV SCH (04:31)
[2023-03-13 05:15] LABS: HEMATOCRIT 27.3 % (36.0-47.0); HEMOGLOBIN 8.8 g/dl (12.0-15.5); MEAN CORPUSCULAR HEMOGLOBIN 30.4 pg (27.0-33.0); MEAN CORPUSCULAR HGB CONC 32.2 g/dl (32.0-36.5); MEAN CORPUSCULAR VOLUME 94.5 fl (80.0-96.0); PLATELET COUNT, AUTOMATED 225 10^3/uL (150-450); RED BLOOD COUNT 2.89 10^6/uL (4.00-5.40); WHITE BLOOD COUNT 22.5 10^3/uL (4.0-10.0)
[2023-03-13 05:38] LABS: BLOOD UREA NITROGEN 6 MG/DL (9-23); CALCIUM LEVEL 7.3 MG/DL (8.3-10.6); CARBON DIOXIDE LEVEL 21 MMOL/L (20-31); CHLORIDE LEVEL 107 MMOL/L (98-107); CREATININE FOR GFR 0.61 MG/DL (0.55-1.30); GLOMERULAR FILTRATION RATE > 60.0 (>39); GLUCOSE, FASTING 56 MG/DL (74-106); MAGNESIUM LEVEL 1.7 MG/DL (1.8-2.4); POTASSIUM SERUM 3.5 MMOL/L (3.5-5.1); SODIUM LEVEL 139 MMOL/L (136-145)
[2023-03-13] MEDS: HEPARIN SOD (PORCINE) 5000UNITS/ML 1ML VIAL/SYRINGE SC SCH ×3 (06:21→22:39)
[2023-03-13] MEDS ORDERED: GLUCAGON INJ 1MG VIAL SC PRN (06:25)
[2023-03-13] MEDS ORDERED: NORCO, ANEXSIA 5/325MG TABLET (HYDROcodone/ACETAMINOPHEN) PO PRN (06:25)
[2023-03-13] MEDS ORDERED: DEXTROSE 50% 50ML SYRINGE IV PRN (06:25)
[2023-03-13] MEDS ORDERED: GLUCOSE 4GM CHEW TABLET PO PRN (06:25)
[2023-03-13] MEDS ORDERED: FAMOTIDINE 20 MG TAB PO PRN (06:25)
[2023-03-13 07:41] LABS: BASO # 0.2 10^3/uL (0.0-0.2); BASO % 0.7 % (0.0-1.0); EOS # 0.1 10^3/uL (0.0-0.5); EOS % 0.4 % (0.0-3.0); LYMPH % 12.7 % (24.0-44.0); NEUTROPHILS # 13.1 10^3/uL (1.5-8.5); NEUTROPHILS % 61.2 % (36.0-66.0)
[2023-03-13] MEDS: MAG SULF 1GM/100ML (MAG RUN) 1 GM in IV 1 EA IV SCH ×2 (08:03→09:18)
[2023-03-13 08:16] LABS: LYMPH # 2.7 10^3/uL (1.5-5.0); MONO # 2.8 10^3/uL (0.0-0.8)
[2023-03-13] MEDS: NYSTATIN 500,000U/5ML SUSP UDC SS SCH ×4 (08:43→20:11)
[2023-03-13] MEDS: FIDAXOMICIN 200 MG TAB (DIFICID) PO SCH ×2 (08:44→20:11)
[2023-03-13] MEDS ORDERED: MAGIC MOUTHWASH SUSPENSION BTL SS PRN (10:55)
[2023-03-13] MEDS ORDERED: SCOPOLAMINE 1MG TRANSDERMAL PATCH TOP SCH (20:00)
[2023-03-13] MEDS: MIRTAZAPINE 7.5MG PER 1/2 TABLET PO SCH (20:11)
[2023-03-13] MEDS: ACETAMINOPHEN TAB 650MG DOSE (2X325MG) PO PRN (20:13)
[2023-03-13] MEDS ORDERED: PROMETHAZINE 25MG/ML 1ML VIAL IV ONE ×2 (21:00→22:30)
[2023-03-14 04:20] VITALS: BP 128/62; TEMP 98.9; O2SAT 96
[2023-03-14 05:29] LABS: HEMATOCRIT 27.1 % (36.0-47.0); HEMOGLOBIN 8.9 g/dl (12.0-15.5); MEAN CORPUSCULAR HEMOGLOBIN 30.8 pg (27.0-33.0); MEAN CORPUSCULAR HGB CONC 32.8 g/dl (32.0-36.5); MEAN CORPUSCULAR VOLUME 93.8 fl (80.0-96.0); PLATELET COUNT, AUTOMATED 333 10^3/uL (150-450); RED BLOOD COUNT 2.89 10^6/uL (4.00-5.40); WHITE BLOOD COUNT 24.9 10^3/uL (4.0-10.0)
[2023-03-14 05:50] LABS: ALBUMIN 1.9 G/DL (3.2-5.2); ALKALINE PHOSPHATASE 353 U/L (46-116); ALT/SGPT 21 U/L (7.0-40); AST/SGOT 33 U/L (<34); BILIRUBIN,TOTAL 0.7 MG/DL (0.3-1.2); BLOOD UREA NITROGEN < 5 MG/DL (9-23); CALCIUM LEVEL 7.3 MG/DL (8.3-10.6); CARBON DIOXIDE LEVEL 23 MMOL/L (20-31); CHLORIDE LEVEL 108 MMOL/L (98-107); GLOMERULAR FILTRATION RATE > 60.0 (>39); GLUCOSE, FASTING 83 MG/DL (74-106); MAGNESIUM LEVEL 2.1 MG/DL (1.8-2.4); POTASSIUM SERUM 3.2 MMOL/L (3.5-5.1); SODIUM LEVEL 140 MMOL/L (136-145); TOTAL PROTEIN 4.8 G/DL (5.7-8.2)
[2023-03-14] MEDS: HEPARIN SOD (PORCINE) 5000UNITS/ML 1ML VIAL/SYRINGE SC SCH (06:11)
[2023-03-14 06:23] LABS: EOSINOPHILS 1 % (0-3); LYMPHOCYTES 8 % (16-44); MONOCYTES 24 % (0-5); NEUTROPHILS 65 % (28-66)
[2023-03-14 06:24] LABS: HYPOCHROMASIA 1+; PLATELET ESTIMATE NORMAL (NORMAL)
[2023-03-14 06:25] LABS: POLYCHROMASIA 1+
[2023-03-14 06:26] LABS: ANISOCYTOSIS 1+
[2023-03-14] MEDS ORDERED: POTASSIUM CHLORIDE 10MEQ SR TABLET PO ONE ×2 (06:45→12:00)
[2023-03-14 08:00] VITALS: BP 130/56; TEMP 97.2; O2SAT 99
[2023-03-14] MEDS: FIDAXOMICIN 200 MG TAB (DIFICID) PO SCH ×2 (08:14→20:16)
[2023-03-14] MEDS: NYSTATIN 500,000U/5ML SUSP UDC SS SCH ×4 (08:15→20:16)
[2023-03-14] MEDS: NS 1,000 ML IV SCH ×2 (08:16→18:33)
[2023-03-14 12:00] VITALS: BP 103/58; TEMP 98.6; O2SAT 97
[2023-03-14 16:00] VITALS: BP 98/55; O2SAT 100
[2023-03-14 20:00] VITALS: BP 105/51; TEMP 96.8; O2SAT 98
[2023-03-14] MEDS: FAMOTIDINE 20 MG TAB PO SCH (20:16)
[2023-03-14] MEDS: MIRTAZAPINE 7.5MG PER 1/2 TABLET PO SCH (20:16)
[2023-03-14 23:20] VITALS: BP 110/62; TEMP 97; O2SAT 99
[2023-03-15] MEDS: NS 1,000 ML IV SCH (01:56)
[2023-03-15 03:42] VITALS: BP 100/48; TEMP 97.5; O2SAT 96
[2023-03-15 05:36] LABS: HEMATOCRIT 26.7 % (36.0-47.0); HEMOGLOBIN 8.7 g/dl (12.0-15.5); MEAN CORPUSCULAR HEMOGLOBIN 30.7 pg (27.0-33.0); MEAN CORPUSCULAR HGB CONC 32.6 g/dl (32.0-36.5); MEAN CORPUSCULAR VOLUME 94.3 fl (80.0-96.0); PLATELET COUNT, AUTOMATED 389 10^3/uL (150-450); RED BLOOD COUNT 2.83 10^6/uL (4.00-5.40); WHITE BLOOD COUNT 18.4 10^3/uL (4.0-10.0)
[2023-03-15 06:02] LABS: ALBUMIN 1.7 G/DL (3.2-5.2); ALKALINE PHOSPHATASE 351 U/L (46-116); ALT/SGPT 19 U/L (7.0-40); AST/SGOT 32 U/L (<34); BILIRUBIN,TOTAL 0.6 MG/DL (0.3-1.2); BLOOD UREA NITROGEN < 5 MG/DL (9-23); CALCIUM LEVEL 7.3 MG/DL (8.3-10.6); CARBON DIOXIDE LEVEL 21 MMOL/L (20-31); CHLORIDE LEVEL 113 MMOL/L (98-107); CREATININE FOR GFR 0.54 MG/DL (0.55-1.30); GLOMERULAR FILTRATION RATE > 60.0 (>39); GLUCOSE, FASTING 80 MG/DL (74-106); MAGNESIUM LEVEL 1.8 MG/DL (1.8-2.4); POTASSIUM SERUM 3.8 MMOL/L (3.5-5.1); SODIUM LEVEL 142 MMOL/L (136-145); TOTAL PROTEIN 4.4 G/DL (5.7-8.2)
[2023-03-15 07:04] LABS: ATYPICAL LYMPH 13 % (0-5); BASOPHILS 2 % (0-1); LYMPHOCYTES 2 % (16-44); MONOCYTES 21 % (0-5); NEUTROPHILS 57 % (28-66); PLATELET ESTIMATE NORMAL (NORMAL)
[2023-03-15 07:05] LABS: HYPOCHROMASIA 1+; MICROCYTOSIS 1+; POIKILOCYTOSIS 2+; POLYCHROMASIA 2+
[2023-03-15] MEDS ORDERED: SODIUM CHLORIDE 0.9% INJ 10 ML SYR IV PRN (07:45)
[2023-03-15 07:56] VITALS: BP 110/62; TEMP 97.5; O2SAT 98
[2023-03-15] MEDS: SODIUM CHLORIDE 0.9% INJ 10 ML SYR IV SCH (09:50)
[2023-03-15] MEDS: ENOXAPARIN 40MG/0.4ML SYRINGE (J1650 PER 10MG) SC SCH (09:50)
[2023-03-15] MEDS: FAMOTIDINE 20 MG TAB PO SCH ×2 (09:51→20:49)
[2023-03-15] MEDS: NYSTATIN 500,000U/5ML SUSP UDC SS SCH ×4 (09:51→20:53)
[2023-03-15] MEDS: FIDAXOMICIN 200 MG TAB (DIFICID) PO SCH ×2 (09:51→20:49)
[2023-03-15 12:00] VITALS: BP 112/68; TEMP 95.7; O2SAT 98
[2023-03-15 16:00] VITALS: BP 106/70; TEMP 97.6; O2SAT 98
[2023-03-15 20:27] VITALS: BP 105/59; TEMP 99.2; O2SAT 97
[2023-03-15] MEDS: MIRTAZAPINE 7.5MG PER 1/2 TABLET PO SCH (20:49)
[2023-03-15] MEDS: ACETAMINOPHEN TAB 650MG DOSE (2X325MG) PO PRN (20:49)
[2023-03-16 04:29] VITALS: BP 115/67; TEMP 97.6; O2SAT 97
[2023-03-16 06:31] LABS: HEMATOCRIT 27.9 % (36.0-47.0); HEMOGLOBIN 8.8 g/dl (12.0-15.5); MEAN CORPUSCULAR HEMOGLOBIN 30.1 pg (27.0-33.0); MEAN CORPUSCULAR HGB CONC 31.5 g/dl (32.0-36.5); MEAN CORPUSCULAR VOLUME 95.5 fl (80.0-96.0); PLATELET COUNT, AUTOMATED 453 10^3/uL (150-450); RED BLOOD COUNT 2.92 10^6/uL (4.00-5.40); WHITE BLOOD COUNT 14.7 10^3/uL (4.0-10.0)
[2023-03-16 07:08] LABS: ALBUMIN 1.8 G/DL (3.2-5.2); ALKALINE PHOSPHATASE 357 U/L (46-116); ALT/SGPT 20 U/L (7.0-40); AST/SGOT 36 U/L (<34); BILIRUBIN,TOTAL 0.5 MG/DL (0.3-1.2); BLOOD UREA NITROGEN < 5 MG/DL (9-23); CALCIUM LEVEL 7.6 MG/DL (8.3-10.6); CARBON DIOXIDE LEVEL 21 MMOL/L (20-31); CHLORIDE LEVEL 114 MMOL/L (98-107); CREATININE FOR GFR 0.55 MG/DL (0.55-1.30); GLOMERULAR FILTRATION RATE > 60.0 (>39); GLUCOSE, FASTING 89 MG/DL (74-106); MAGNESIUM LEVEL 1.6 MG/DL (1.8-2.4); POTASSIUM SERUM 3.6 MMOL/L (3.5-5.1); SODIUM LEVEL 144 MMOL/L (136-145); TOTAL PROTEIN 4.4 G/DL (5.7-8.2)
[2023-03-16 07:24] LABS: ATYPICAL LYMPH 3 % (0-5); EOSINOPHILS 2 % (0-3); LYMPHOCYTES 18 % (16-44); METAMYELOCYTES 1 % (0-0); MONOCYTES 22 % (0-5); NEUTROPHILS 45 % (28-66); PLATELET ESTIMATE INCREASED (NORMAL)
[2023-03-16 07:25] LABS: POLYCHROMASIA 2+
[2023-03-16 07:26] LABS: MICROCYTOSIS 1+; TOXIC VACUOLATION 1+
[2023-03-16 08:13] VITALS: BP 107/58; TEMP 98.3; O2SAT 98
[2023-03-16] MEDS: MAG SULF 1GM/100ML (MAG RUN) 1 GM in IV 1 EA IV SCH ×2 (08:19→10:16)
[2023-03-16] MEDS: FIDAXOMICIN 200 MG TAB (DIFICID) PO SCH (08:20)
[2023-03-16] MEDS: ENOXAPARIN 40MG/0.4ML SYRINGE (J1650 PER 10MG) SC SCH (08:20)
[2023-03-16] MEDS: FAMOTIDINE 20 MG TAB PO SCH (08:20)
[2023-03-16] MEDS: NYSTATIN 500,000U/5ML SUSP UDC SS SCH (08:20)
[2023-03-16] MEDS ORDERED: FIDA200TA PO (09:55)
[2023-03-16] MEDS: SODIUM CHLORIDE 0.9% INJ 10 ML SYR IV SCH (11:49)
[2023-03-16] MEDS ORDERED: NYST-38 PO (15:13)
== END 2023-03-16 12:20 | disposition home or self-care (01) | DRG 372 ==
LOC: M ED 11:31 → M ED INP 15:51 → ENRESERV 19:49 → M PCU 21:20
PROVIDERS: ADMIT Internal Medicine; ATTEND Internal Medicine
DX: A04.71 Enterocolitis due to Clostridium difficile, recurrent (principal); C77.9 Secondary and unspecified malignant neoplasm of lymph node, unspecified; C78.00 Secondary malignant neoplasm of unspecified lung; B37.0 Candidal stomatitis; C25.9 Malignant neoplasm of pancreas, unspecified; C78.7 Secondary malignant neoplasm of liver and intrahepatic bile duct; I10 Essential (primary) hypertension; I45.10 Unspecified right bundle-branch block; B96.20 Unspecified Escherichia coli [E. coli] as the cause of diseases classified elsewhere; K21.9 Gastro-esophageal reflux disease without esophagitis; G47.00 Insomnia, unspecified; Z92.21 Personal history of antineoplastic chemotherapy; E87.6 Hypokalemia; E83.42 Hypomagnesemia; E16.2 Hypoglycemia, unspecified; Z88.5 Allergy status to narcotic agent; Z79.899 Other long term (current) drug therapy; M19.90 Unspecified osteoarthritis, unspecified site; G43.909 Migraine, unspecified, not intractable, without status migrainosus; R94.31 Abnormal electrocardiogram [ECG] [EKG]

== ENCOUNTER → 2023-03-12 | Outpatient (CLI) | payer MEDICARE, OTHER ==
[~2023-03-12] MED LIST changes: +AZIT500T5 PO; +DIFI200T PO; +FAMO1TAB11 PO; +GASTROGRAFIN SOLUTION 30ML As Ordered ONE; +ISOVUE-370 76% 100ML VIAL As Ordered ONE; +NYST-38 PO; +POTA-165 PO
== END ==
LOC: M RAD 08:05
PROVIDERS: ATTEND Internal Medicine Medical Oncology
DX: C25.9 Malignant neoplasm of pancreas, unspecified (principal); K83.8 Other specified diseases of biliary tract; R59.9 Enlarged lymph nodes, unspecified
CPT/HCPCS: 71260; 74177; Q9963; Q9967

== ENCOUNTER → 2023-03-31 | Outpatient (CLI) | payer MEDICARE ==
[~2023-03-31] VITALS: Ht 165.1 cm; Wt 60.5 kg
[~2023-03-31] MED LIST changes: +DEXA2TA PO; +FAMO1TAB11 PO; +POTA-165 PO
[2023-03-31 10:23] VITALS: BP 113/80; TEMP 96.4; O2SAT 97
== END ==
LOC: M PAL 10:12
PROVIDERS: ATTEND Nurse Practitioner Adult Health
DX: C78.89 Secondary malignant neoplasm of other digestive organs (principal); Z85.72 Personal history of non-Hodgkin lymphomas; Z51.5 Encounter for palliative care; A04.71 Enterocolitis due to Clostridium difficile, recurrent; G89.3 Neoplasm related pain (acute) (chronic); K59.00 Constipation, unspecified; R42 Dizziness and giddiness; R63.0 Anorexia; R53.83 Other fatigue; Z79.1 Long term (current) use of non-steroidal anti-inflammatories (NSAID); Z79.891 Long term (current) use of opiate analgesic; Z79.899 Other long term (current) drug therapy; Z88.5 Allergy status to narcotic agent; Z80.49 Family history of malignant neoplasm of other genital organs; Z92.21 Personal history of antineoplastic chemotherapy

== ENCOUNTER → 2023-04-16 | Outpatient (REF) | payer MEDICARE, OTHER ==
[~2023-04-16] MED LIST changes: +MECL-209 PO; -MECL1TAB31 PO; +NYST-38 SS; +PANT40TA29
== END ==
LOC: M SFHCPLAZ 16:57
PROVIDERS: ATTEND Physician Assistant
DX: N89.8 Other specified noninflammatory disorders of vagina (principal)